=== PATIENT | female | born 1955 | race Caucasian/White ===

== ENCOUNTER 2024-07-21 13:24 | Inpatient (IN) | payer MEDICARE, SELFPAY ==
[2024-07-21] VITALS (26 sets, daily range): BP systolic 79–135; BP diastolic 55–114; PULSE 77–164; RESP 16–29; TEMP 37.6–37.7; O2SAT 91–99; BMI 38.9; BMI 35.3
--- NOTE | 2024-07-21 13:36 | EKG12_ITS ---
Test Reason : HIGH HR Blood Pressure : / mmHG Vent. Rate : 156 BPM Atrial Rate : 388 BPM P-R Int : 000 ms QRS Dur : 084 ms QT Int : 294 ms P-R-T Axes : 000 267 074 degrees QTc Int : 473 ms Critical Test Result: High HR Atrial flutter with variable A-V block Abnormal ECG Confirmed by Stone Serrano ([id number]), newspaper copy editor AYAKA MORENO ([id number]) on 07/23/2024 8:19:29 AM Referred By: CECILLE/MELQUIADES Confirmed By:Stone Serrano
[2024-07-21 13:49] LABS: Bedside Glucose 221 mg/dL (74-106)
--- NOTE | 2024-07-21 13:53 | ED.RN ---
pt's , amor, notified of patient being in ED per request of patient
[2024-07-21 13:54] LABS: Absolute Neutrophil Count 12.7 X10^3/uL (2.0-7.7); Basophil# 0.07 X10^3/uL; Basophil% 0.4 % (0-1); Eosinophils% 0.6 % (0-5); Hematocrit 26.2 % (37-47); Hemoglobin 8.2 g/dL (12.0-15.0); Lymphocyte % 5.7 % (19-41); Mean Corp Hgb Conc 31.3 g/dL (32-36); Mean Corpuscular Volume 92.6 fL (81-99); Mean Platelet Vol. 9.3 fl (6.2-12.0); Monocyte% 11.3 % (0-10); NRBC Flagged by Analyzer 0 % (0-5); Neutrophil # 12.66 X10^3/uL (2.7-7.7); Neutrophil % 79.9 % (47-70); POSITIVE DIFFERENTIAL YES; Platelet Count 273 K/mm3 (150-450); RBC Distribution Width CV 14.6 % (11.6-14.6); RBC Distribution Width SD 49.5 fl (35.1-43.9); Red Blood Count 2.83 M/mm3 (4.2-5.4); White Blood Count 15.9 K/mm3 (4.4-11.0)
--- NOTE | 2024-07-21 13:55 | RAD_ITS ---
STUDY: X-RAY CHEST REASON FOR EXAM: Female, 68 years old. Chest pain TECHNIQUE: Single AP portable view of the chest. COMPARISON: None. FINDINGS: A right-sided double-lumen catheter is seen with the tip at the junction of the superior vena cava and right atrium. EKG electrodes are seen. Mild degree of vascular congestion and bibasilar atelectasis. There is no demonstrated pleural abnormality. Normal size heart. Normal mediastinum and snow. Normal visualized pulmonary arteries. Normal visualized aortic arch and descending thoracic aorta. Normal visualized thoracic spine. Normal visualized ribs, clavicles, and shoulders. There is no demonstrated abnormality of the visualized soft tissue structures of the upper abdomen. RAD/Chest 1 View (Portable) IMPRESSION: Mild degree of vascular congestion and bibasilar atelectasis. Electronically Signed: Chaitanya Landis MD at 14:29 EDT ,
[2024-07-21 13:59] LABS: Differential Indicated SCAN CRITERIA MET
[2024-07-21 14:19] LABS: Anion Gap 9 (5-15); BUN 31 mg/dL (7-18); BUN/Creat Ratio 13.3 RATIO (10-20); Chloride 91 mmol/L (98-107); Creatinine, Serum 2.33 mg/dL (0.55-1.02); EST Glomerular Filtration Rate 22 mL/min (>60); Est Glom Filt Rate - Afr Amer 27 mL/min (>60); Estimated Creatinine Clearance 27.72 ml/min; Glucose 243 mg/dL (74-106); Potassium 4.6 mmol/L (3.5-5.1); Sodium Level 127 mmol/L (136-145); Troponin-I HS (w/2H Reflex) 4 pg/mL (3.0-54.0)
[2024-07-21] MEDS: Metoprolol Tartrate 5 MG/5 ML Vial IV ×3 (14:20→15:17)
--- NOTE | 2024-07-21 14:25 | CT_ITS ---
We are attempting to reach an attending provider to discuss findings. An addendum with communication details will be sent when the communication is complete. STUDY: CT HEAD STROKE PROTOCOL W/O CONTRAST INJECTION REASON FOR EXAM: Female, 68 years old. Neuro deficit, acute, stroke suspected RADIATION DOSAGE (If Supplied By Facility): CTDIvol = ( 47.06 ) mGy, DLP = ( 837.39 ) mGycm TECHNIQUE: Transaxial CT imaging of the brain was performed without administration of intravenous contrast material. Individualized dose optimization techniques were used for this CT. COMPARISON: No relevant priors. FINDINGS: Normal soft tissue structures. Normal calvarium. There is mild cerebral atrophy with widening of the extra-axial spaces and ventricular dilatation. There are areas of decreased attenuation within the white matter tracts of the supratentorial brain, consistent with microvascular disease changes. Normal basal ganglia and thalami. Normal brainstem. Normal cerebellum. There is no intracranial hemorrhage. There are no findings of an acute ischemic infarction. Atherosclerotic calcification of the left vertebral artery. Normal visualized paranasal sinuses. ASPECT score: 10 CT/STROKE Brain/Head without Cont IMPRESSION: Chronic involutional changes of the brain. Electronically Signed: Chaitanya Landis MD at 14:51 EDT ,
--- NOTE | 2024-07-21 14:27 | ED.VIS.STROK ---
HPI History of Present Illness Chief Complaint: Alt LOC Informant: family Narrative Narrative: Patient was brought in by EMS, due to busy department, patient was seen by myself and started shift 2 PM. Brother was present at bedside. Discussion with him, he did visit his sister at [facility] prior to her going dialysis. She is normal 11 AM. He reports she was scared and asked him to go to dialysis with her. She was transported to dialysis. On his arrival they reported that her heart rate was fast and she has been sent to the emergency department. However on arrival reported there is altered mental status. She was noted to be A-fib with RVR. Discussed with brother he states she was discharged from [facility] approximately 3 weeks ago she was hospitalized for 3 weeks. He states there is some sort of rhythm issues in addition she had a right DVT started on anticoagulant. She had a subsequent for what he explains blood pooling in her leg requiring drain after blood thinners were started. He is unclear if she is still currently on blood thinners since being discharged. She was started on dialysis from that hospitalization on Sunday and Fridays. Patient states she still makes a little urine. She has no cough. During discussion she was alert to person and place he is stating the year is 1928, brother states she typically does know the year. He does state that she is a diabetic. Although heart rate 150s 160s she denies any symptoms.Brother reports since being at the facility there physical therapy has walked her 12 feet with a walker. Currently there is no additional information in the system or anything sent from facility as she came from dialysis. [facility] Medical History Acute kidney injury superimposed on chronic kidney disease Home Medications ?Medication ?Instructions ?Recorded ?Last Taken ?Type acetaminophen 325 mg tablet 325 mg PO Q4H PRN fever or pain 07/21/24 Unknown History apixaban 5 mg tablet 5 mg PO BID 07/21/24 Unknown History chlorpromazine 50 mg tablet 50 mg PO BID 07/21/24 Unknown History furosemide 40 mg tablet 40 mg PO .COMPLEX EDEMA 07/21/24 Unknown History hydrocortisone 1 % topical cream 1 applic topical DAILY HEMORROIDS 07/21/24 Unknown History (Ala-Marlo) insulin glargine 100 unit/mL (3 22 unit subcut QPM 07/21/24 Unknown History mL) subcutaneous pen (Lantus Solostar U-100 Insulin) insulin lispro 100 unit/mL See Protocol subcut DAILY 07/21/24 Unknown History subcutaneous pen (Humalog KwikPen (U-100) Insulin) metoprolol tartrate 100 mg tablet 100 mg PO .COMPLEX 07/21/24 Unknown History metoprolol tartrate 100 mg tablet 100 mg PO QHS HTN 07/21/24 Unknown History (Lopressor) oxycodone 5 mg tablet 5 mg PO Q6H PRN pain 07/21/24 Unknown History potassium chloride 10 mEq 10 meq PO .COMPLEX HYPOKALEMIA 07/21/24 Unknown History tablet,extended release(part/cryst) (Klor-Con M) vitamin B comp no.3-folic acid 1 1 tab PO DAILY 07/21/24 Unknown History mg-vit C 60 mg-biotin 300 mcg tablet (Cl[facility] Rx) Allergy/AdvReac Type Severity Reaction Status Date / Time propoxyphene (From Darvon) Allergy Mild PT UNABLE Verified 07/21/24 13:32 TO RESPOND-NEEDS F/U haloperidol (From Haldol) Allergy PT UNABLE Verified 07/21/24 13:32 TO RESPOND-NEEDS F/U Penicillins Allergy PT UNABLE Verified 07/21/24 13:32 TO RESPOND-NEEDS F/U Social History Smoking Status: Never smoker ROS ROS ED Constitutional Constitutional ED: Denies chills, fever(s) or sweats Eyes Eyes: Denies change in vision ENT ENT ED: Denies dysphagia or sore throat Cardiovascular Cardiovascular: Denies chest pain, leg edema, palpitations, racing heartbeat or other Respiratory/Chest Respiratory/Chest: Denies cough, dyspnea or dyspnea on exertion Gastrointestinal Gastrointestinal: Denies abdominal pain, diarrhea, nausea or vomiting Genitourinary Genitourinary ED: Denies dysuria, hematuria or urinary frequency Musculoskeletal Musculoskeletal: Denies back pain, extremity pain or neck pain Integumentary Denies rash or wounds Neurologic Neurologic: Denies headache(s), paresthesias or weakness EXAM Physical Exam Const Vital Signs: 07/21/24 13:25 07/21/24 13:28 07/21/24 14:02 Temperature 99.7 F H 99.7 F H Temperature Source Temporal Temporal Pulse Rate 155 H 157 H Respiratory Rate 28 H 27 H Blood Pressure 123/82 H 125/92 H Blood Pressure Mean 95 103 Blood Pressure Source Blood Pressure Position Blood Pressure Location Pulse Ox 97 91 Oxygen Delivery Method Room Air Room Air Room Air 07/21/24 14:22 07/21/24 14:25 07/21/24 14:28 Temperature Temperature Source Pulse Rate 164 H 164 H Respiratory Rate 29 H 16 Blood Pressure 109/82 H 109/82 H Blood Pressure Mean 91 91 Blood Pressure Source Blood Pressure Position Blood Pressure Location Pulse Ox 98 95 Oxygen Delivery Method Room Air Room Air Room Air 07/21/24 14:28 07/21/24 14:55 07/21/24 15:17 Temperature 99.9 F H Temperature Source Oral Pulse Rate 132 H 141 H 142 H Respiratory Rate 25 H 27 H 25 H Blood Pressure 109/82 H 111/69 107/76 Blood Pressure Mean 91 83 86 Blood Pressure Source Blood Pressure Position Blood Pressure Location Pulse Ox 95 95 96 Oxygen Delivery Method Room Air Room Air Room Air 07/21/24 15:25 07/21/24 15:31 07/21/24 15:55 Temperature Temperature Source Pulse Rate 133 H 134 H 130 H Respiratory Rate 16 25 H 24 H Blood Pressure 117/68 117/65 100/67 Blood Pressure Mean 84 82 78 Blood Pressure Source Blood Pressure Position Blood Pressure Location Pulse Ox 98 95 94 Oxygen Delivery Method Room Air Room Air Room Air 07/21/24 16:00 07/21/24 16:30 07/21/24 16:58 Temperature Temperature Source Pulse Rate 127 H 125 H 135 H Respiratory Rate 26 H 21 H 25 H Blood Pressure 100/66 117/74 118/80 Blood Pressure Mean 77 88 92 Blood Pressure Source Monitor Blood Pressure Position Semi-Fowlers Blood Pressure Location Right Arm Pulse Ox 97 98 97 Oxygen Delivery Method Room Air Room Air Room Air 07/21/24 17:00 07/21/24 17:30 07/21/24 17:30 Temperature Temperature Source Pulse Rate 126 H 118 H 118 H Respiratory Rate 27 H 24 H 25 H Blood Pressure 109/72 114/71 114/71 Blood Pressure Mean 84 85 85 Blood Pressure Source Monitor Blood Pressure Position Semi-Fowlers Blood Pressure Location Right Arm Pulse Ox 98 98 97 Oxygen Delivery Method Room Air Room Air Room Air 07/21/24 18:00 Temperature Temperature Source Pulse Rate 114 H Respiratory Rate 21 H Blood Pressure 105/70 Blood Pressure Mean 81 Blood Pressure Source Blood Pressure Position Blood Pressure Location Pulse Ox 97 Oxygen Delivery Method Room Air Positive well nourished and well developed General Appearance ED: well developed and NAD HEENT Reports moist mucous membranes normocephalic and atraumatic Eyes EOMs intact bilaterally and conjunctivae normal General Eye ED: Yes normal appearance of both eyes and pale conjunctiva Neck no lymphadenopathy and supple General: Negative for tenderness Chest Wall Chest: Negative for tenderness Resp normal respiratory effort and normal air movement Effort and Inspection: symmetric chest movement; Negative for respiratory distress Cardio regular rate, regular rhythm and no murmurs Peripheral Pulses: pulses 2+ throughout GI normal to inspection, nondistended, normoactive bowel sounds and non-tender Palpation: Negative for guarding or rebound tenderness present Back/Spine no CVA tenderness and no thoracic nor lumbar tenderness Extremity Extremity Narrative: Right posterior thigh: There was healing 1 cm orifice likely from previous drain 2. No surrounding erythema, no ecchymosis. General Extremety ED: Negative for edema or tenderness General Extremity: Negative for edema Neuro no sensory deficits noted Neuro Narrative: Alert to person and place reported years 1925. Sensorium / Orientation: awake and alert Skin Skin Narrative: Skin pallor noted. NIHSS NIHSS Initial: 1a Level of Consciousness: 0 1b LOC Questions (Score 2 if aphasic/stupor): 1 1c LOC Commands (Only score 1st attempt): 0 2 Best Gaze (If aphasic, use reflexive mvmts.): 0 3 Visual: 0 4 Facial Palsy: 0 5 Motor Arm Right (UN = amputation/fusion): 0 5 Motor Arm Left: 0 6 Motor Leg Right: 1 6 Motor Leg Left: 1 7 Limb ataxia (Only + if out of proportion): 0 8 Sensory (Aphasia/stupor=0 or 1, coma=2): 0 9 Best Language: 0 10 Dysarthria (mute, coma=2, intubated=UN): 0 11 Extinction and Inattention (only scored if +): 0 Total Score: 3 MDM MDM MDM Narrative Medical decision making narrative: Interventions / MDM: Differential diagnosis: CVA, UTI, encephalopathy, A-fib with RVR, electrolyte abnormality Diagnosis considered but do not suspect: Pneumonia however x-ray negative. My EKG interpretation: A-fib RVR 156, no ST or T wave changes. Imaging independently reviewed and interpreted by myself: 1 view chest x-ray: No infiltrate no pleural effusion noted. CT brain: No acute process. CT angiogram brain and neck: No acute process per radiology. External documents reviewed: N/A Test considered but not ordered:N/A ED course: There is initial nursing protocol placed for the patient due to busy department. After my evaluation she had slight confusion she has an NIH of 3. She is in A-fib with RVR, initiation of Lopressor. Brother unclear if she is still on a blood thinner since she had the hematoma in her thigh. Dialysis patient also which complicates things. Decision for stroke workup was initiated after my evaluation to get assistance from stroke neurologist for plan of care. Nursing is calling over to [facility] facility for records. 1430: Hemoglobin returning at 8.2 white count 15.9. Sodium 127. Creatinine 2.33 BUN 31 GFR of 22. Glucose 243. Troponin negative. 1435: Facility faxed over patient's record she is on Eliquis 5 mg twice daily for DVT. Additional records reviewed she had paroxysmal A-fib. Type 2 diabetes heart failure, hypertension, schizophrenia history, post hemorrhage anemia. 1447: I spoke with stroke neurologist, Dr. Bowman over the phone discussed her history, reason for activation of stroke team, however discuss confirm she is on Eliquis. Agree she is not a TNK candidate. However did recommend CT angiogram to rule out large vessel occlusion. This was ordered as she is currently on dialysis. Shortly after radiologist did call discussion CT brain noncontrast no acute process. 1525: Nursing reports to me patient is meeting sepsis criteria heart rate white count. Chronic elevation in creatinine with her dialysis. Her temp was 99. Will add lactic acid and blood culture x 1 at this time due to shortages and blood culture bottles nationwide. Patient status post third dose of Lopressor heart rate fluctuating 120s to 130s, systolic blood pressure 107. Will plan on Cardizem IV [address] angiogram head and neck results returned negative. 1640: Urine positive for infection urine culture sent. Lactic acid 2.0. Rocephin IV ordered. Heart rate recheck still 120s to 130s blood pressure stable in the 115 range, will start a Cardizem drip. Patient and brothers updated on findings. Will discuss with hospitalist for admission. Discussed with Dr. Suarez for admission. Re-evaluation: stable Disposition discussed with patient/family/significant other: Patient and brother Case discussed with consulting clinician: Stroke neurologist Dr. Bowman This note was generated with [employer] dictation software. It may contain incorrect words, spelling, and punctuation that were not noted in checking the note before signing. Lab Data Attestation: I reviewed the patient's lab results. Labs: Laboratory Results - last 24 hr 07/21/24 07/21/24 07/21/24 13:30 13:40 15:36 WBC 15.9 H RBC 2.83 L Hgb 8.2 L Hct 26.2 L MCV 92.6 MCH 29.0 MCHC 31.3 L RDW Std Deviation 49.5 H RDW Coeff of [place]olly 14.6 Plt Count 273 MPV 9.3 Immature Gran % (Auto) 2.100 H Neut % (Auto) 79.9 H Lymph % (Auto) 5.7 L [place] % (Auto) 11.3 H Eos % (Auto) 0.6 Baso % (Auto) 0.4 Absolute Neuts (auto) 12.7 H Absolute Lymphs (auto) 0.90 Nucleated RBC % 0 Differential Comment SCANNED Diff Path Review May foll PT 24.3 H INR 2.2 APTT 46.4 H Sodium 127 L Potassium 4.6 Chloride 91 L Carbon Dioxide 27.0 Anion Gap 9 BUN 31 H Creatinine 2.33 H Estim Creat Clear Calc 27.72 Est GFR (MDRD) Af Amer 27 L Est GFR (MDRD) Non-Af 22 L BUN/Creatinine Ratio 13.3 Glucose 243 H Lactic Acid 2.0 Calcium 9.0 Magnesium 1.9 Troponin I High Sens 4 Urine Color Urine Clarity Urine pH Ur Specific [place] Urine Protein Urine Glucose (UA) Urine Ketones Urine Occult Blood Urine Nitrite Urine Bilirubin Urine Urobilinogen Ur Leukocyte Esterase Urine RBC Urine WBC Ur Squamous Epith Cells Ur Transition Epith Cell Urine Bacteria Urine Mucus Urine Yeast POC Glucose 221 H 07/21/24 07/21/24 15:43 15:55 WBC RBC Hgb Hct MCV MCH MCHC RDW Std Deviation RDW Coeff of [place]olly Plt Count MPV Immature Gran % (Auto) Neut % (Auto) Lymph % (Auto) [place] % (Auto) Eos % (Auto) Baso % (Auto) Absolute Neuts (auto) Absolute Lymphs (auto) Nucleated RBC % Differential Comment Diff Path Review PT INR APTT Sodium Potassium Chloride Carbon Dioxide Anion Gap BUN Creatinine Estim Creat Clear Calc Est GFR (MDRD) Af Amer Est GFR (MDRD) Non-Af BUN/Creatinine Ratio Glucose Lactic Acid Calcium Magnesium Troponin I High Sens 4 Urine Color YELLOW Urine Clarity Cloudy Urine pH 6.5 Ur Specific [place] 1.010 Urine Protein 30 H Urine Glucose (UA) Normal Urine Ketones Negative Urine Occult Blood 150 H Urine Nitrite Negative Urine Bilirubin Negative Urine Urobilinogen Normal Ur Leukocyte Esterase 500 H Urine RBC 0 SEEN Urine WBC >100 SEEN Ur Squamous Epith Cells 0 SEEN Ur Transition Epith Cell Urine Bacteria 3+ Urine Mucus 0 SEEN Urine Yeast 2+ POC Glucose Radiography Diagnostic Testing: Clinical Impression(s) from Imaging Studies Chest X-Ray 07/21/24 13:55 IMPRESSION: Mild degree of vascular congestion and bibasilar atelectasis. Electronically Signed: Chaitanya Landis MD at 14:29 EDT , Brain CT 07/21/24 14:25 IMPRESSION: Chronic involutional changes of the brain. Electronically Signed: Chaitanya Landis MD at 14:51 EDT , ADDENDUM: 07/21/24 1458 IMPRESSION: Chronic involutional changes of the brain. N.B. : The above Results were Read Back by Chaitanya Landis MD to Dr Susanne DO, and understanding confirmed on 07/21/2024 14:52:01 (ET). Electronically Signed: Chaitanya Landis MD at 14:51 EDT , Head/Neck CTA 07/21/24 14:50 IMPRESSION: Normal CTA Head and neck with contrast. N.B. : The above Results were Read Back by Chaitanya Landis MD to Dr Susanne DO, and understanding confirmed on 07/21/2024 15:21:17 (ET). Electronically Signed: Chaitanya Landis MD at 15:22 EDT , ADDENDUM: 07/21/24 1529 IMPRESSION: Normal CTA Head and neck with contrast. N.B. : The above Results were Read Back by Chaitanya Landis MD to Dr Susanne DO, and understanding confirmed on 07/21/2024 15:21:17 (ET). Electronically Signed: Chaitanya Landis MD at 15:22 EDT , Stroke Documentation Questions Stroke Team Activated: Yes Reviewed Inclusion/Exclusion criteria: Yes Was Patient considered for Endovascular Intervention?: No-CTA negative, determined not to be an endovascular candidate IV Thrombolytic Administered: No No contraindications from thrombolytic administration: Yes (Eliquis therapy) Critical Care Time Critical Care Time: Yes Critical care time (excluding procedures): 30-74 minutes, Discussing w/Patient &/or Family/Distributor Sales Consultant, Discussing w/Consultants, Arranging Admission or Transfer, Performing Direct Patient Care at Bedside and - (40 minutes) Discharge Plan Dx/Rx/DC Orders Clinical Impression: Atrial fibrillation with rapid ventricular response, Acute UTI, Encephalopathy, ESRD on hemodialysis, Hyperglycemia due to diabetes mellitus, Acute hyponatremia Disposition Disposition: Acute Care Hospital [facility] Discharge Date/Time: 07/21/24 19:06
[2024-07-21 14:33] LABS: Differential Comment SCANNED
[2024-07-21 14:45] LABS: International Normalized Ratio 2.2; Prothrombin Time (Protime)PT. 24.3 SECONDS (11.7-14.9)
[2024-07-21 14:46] LABS: Partial Thromboplast Time 46.4 Seconds (24.1-36.2)
--- NOTE | 2024-07-21 14:50 | CT_ITS ---
STUDY: CTA HEAD AND NECK WITH CONTRAST REASON FOR EXAM: Female, 68 years old. Altered mental status RADIATION DOSAGE (If Supplied By Facility): CTDIvol = ( 17.84 ) mGy, DLP = ( 882.88 ) mGycm TECHNIQUE: CT angiography was performed with a multi-detector CT scanner. Data acquisition was obtained from the skull base through the vertex following intravenous administration of IV 100mL [id number]-[id number]. MIP images were reconstructed from the axial data set. Post-processing of the angiographic images was performed, with multiplanar reformation and 3D reconstruction. Individualized dose optimization techniques were used for this CT. COMPARISON: No relevant priors. FINDINGS: Normal bilateral petrous carotid arteries. There is calcified plaque formation of the right cavernous carotid artery, without a cross-sectional luminal stenosis. There is calcified plaque formation of the left cavernous carotid artery, without a cross-sectional luminal stenosis. Normal right A1 segments of the anterior cerebral artery. Normal left A1 segments of the anterior cerebral artery. Normal intact anterior communicating artery (ACOM). Normal bilateral A2 segments of the anterior cerebral arteries. Normal right M1 and M2 segments of the middle cerebral arteries, with a normal M1 bifurcation. Normal left M1 and M2 segments of the middle cerebral arteries, with a normal M1 bifurcation. Normal right posterior communicating artery (PCOM). Normal left posterior communicating artery (PCOM). Normal bilateral vertebral arteries. Normal basilar artery with a normal basilar bifurcation. The visualized bilateral superior cerebellar (SCA) arteries are normal. Normal bilateral P1, P2 and visualized P3 segments of the posterior cerebral arteries. There is no demonstrated aneurysm of the [place] of [place]. AORTIC ARCH: Normal visualized aortic arch. Normal origins of the brachiocephalic, left common carotid, and left subclavian arteries. RIGHT CAROTID ARTERIES: Normal right common carotid artery (CCA). Normal right common carotid bulb. Normal origin of the right internal carotid (ICA) artery without a hemodynamically significant stenosis. Normal visualized cervical portion of the right internal carotid artery. Normal origin of the right external carotid artery (ECA). LEFT CAROTID ARTERIES: Normal left common carotid artery (CCA). Normal left common carotid bulb. Normal origin of the left internal carotid (ICA) artery without a hemodynamically significant stenosis. Normal visualized cervical portion of the left internal carotid artery. Normal origin of the left external carotid artery (ECA). VERTEBRAL ARTERIES: There is enhancement within the bilateral vertebral arteries with a small right vertebral artery, and a dominant left vertebral artery. CT/STROKE CTA Head AND Neck W/Con IMPRESSION: Normal CTA Head and neck with contrast. N.B. : The above Results were Read Back by Chaitanya Landis MD to Dr Susanne DO, and understanding confirmed on 07/21/2024 15:21:17 (ET). Electronically Signed: Chaitanya Landis MD at 15:22 EDT ,
[2024-07-21] MEDS: dilTIAZem 25 MG/5 ML Vial 10 MG IV BOLUS (15:32)
[2024-07-21 15:49] LABS: Reflex Troponin-HS? (from REC) Y
[2024-07-21 15:55] LABS: Mucous, Urine 0 SEEN /hpf (<or=2+); Red Blood Cells-Urine 0 SEEN /hpf (0-5); Squamous Epithelial Cells - UA 0 SEEN /hpf (5-10)
[2024-07-21 16:08] LABS: Glucose, Dipstick Normal (Normal); Ketone-Dipstick Negative (Negative); Leukocyte Esterase-Dipstick 500 /ul (Negative); Nitrite-Dipstick Negative (Negative); Occult Blood-Urine 150 /ul (Negative); Protein-Dipstick 30 mg/dl (Negative); Urine Bilirubin Dipstick Negative (Negative); Urine Urobilinogen Normal (Normal); Urine pH 6.5 (5.0 - 8.0)
[2024-07-21 16:20] LABS: Color, Urine YELLOW (Yellow); Urine Clarity Cloudy (Clear)
[2024-07-21 16:21] LABS: Bacteria 3+ /hpf (None Seen); White Blood Cells >100 SEEN /hpf (0-5); Yeast-Urine 2+ /hpf (None Seen)
[2024-07-21 16:44] LABS: Troponin-I HS 4 pg/mL (3.0-54.0)
[2024-07-21] MEDS: Ceftriaxone 1 GM/50 ML BAG IV (16:47)
[2024-07-21] MEDS: Diltiazem 125 MG in Dextrose 5%-Water (100mL Bag) 100 ML IV (16:58)
--- NOTE | 2024-07-21 17:05 | ED.RN ---
Patient's called to get an update. He was advised that she will be getting admitted.
--- NOTE | 2024-07-21 18:25 | PCM.HP.STD ---
HPI - General General Date of Admission: 07/21/24 Date of Service: 07/21/24 Chief Complaint: Altered mental status HPI Narrative GLADIS VELOZ, is a 68 F with history of end-stage renal disease on hemodialysis Sunday/Sunday/Sunday, schizophrenia, A-fib, diabetes, DVT and history of leg hematoma but now reportedly back on Eliquis who presented to [facility] ED 07/21/2024 due to fast heart beat. Patient was at [facility] for 3 weeks with a lower extremity DVT and subsequent a leg hematoma with drain and per report has since been restarted on Eliquis and now has been on SNF for 3 weeks undergoing rehab and dialysis and was in her usual health until late morning/early afternoon when she went to dialysis and on arrival it was noted a heart rate was fast and she was sent to the ED. In the ED she also had some alteration in mental status and was noted to be in A-fib with RVR. Initially she had stroke workup with her confusion and CTA negative for acute process but patient was found to have UA concerning for UTI and started on antibiotics. Additionally her A-fib was refractory and required starting Cardizem drip. For these reasons hospitalist contacted for admission. Patient evaluated at bedside and no family present, patient reluctant to answer questions and just said that she did not want to be sent anywhere for admission but would not answer any other direct questions other than to say she knew she was at the hospital. History per report as above. [facility] Medical History Acute kidney injury superimposed on chronic kidney disease Home Medications ?Medication ?Instructions ?Recorded ?Last Taken ?Type acetaminophen 325 mg tablet 325 mg PO Q4H PRN fever or pain 07/21/24 Unknown History apixaban 5 mg tablet 5 mg PO BID 07/21/24 Unknown History chlorpromazine 50 mg tablet 50 mg PO BID 07/21/24 Unknown History furosemide 40 mg tablet 40 mg PO .COMPLEX EDEMA 07/21/24 Unknown History hydrocortisone 1 % topical cream 1 applic topical DAILY HEMORROIDS 07/21/24 Unknown History (Ala-Marlo) insulin glargine 100 unit/mL (3 22 unit subcut QPM 07/21/24 Unknown History mL) subcutaneous pen (Lantus Solostar U-100 Insulin) insulin lispro 100 unit/mL See Protocol subcut DAILY 07/21/24 Unknown History subcutaneous pen (Humalog KwikPen (U-100) Insulin) metoprolol tartrate 100 mg tablet 100 mg PO .COMPLEX 07/21/24 Unknown History metoprolol tartrate 100 mg tablet 100 mg PO QHS HTN 07/21/24 Unknown History (Lopressor) oxycodone 5 mg tablet 5 mg PO Q6H PRN pain 07/21/24 Unknown History potassium chloride 10 mEq 10 meq PO .COMPLEX HYPOKALEMIA 07/21/24 Unknown History tablet,extended release(part/cryst) (Klor-Con M) vitamin B comp no.3-folic acid 1 1 tab PO DAILY 07/21/24 Unknown History mg-vit C 60 mg-biotin 300 mcg tablet (Clover-Boaz Rx) Allergy/AdvReac Type Severity Reaction Status Date / Time propoxyphene (From Darvon) Allergy Mild PT UNABLE Verified 07/21/24 13:32 TO RESPOND-NEEDS F/U haloperidol (From Haldol) Allergy PT UNABLE Verified 07/21/24 13:32 TO RESPOND-NEEDS F/U Penicillins Allergy PT UNABLE Verified 07/21/24 13:32 TO RESPOND-NEEDS F/U Social History Smoking Status: Never smoker ROS ROS Narrative Unable to obtain ROS due to mental status and patient reluctant to answer questions Vital Signs Vital Signs Vital Signs: 07/21/24 13:25 07/21/24 13:28 07/21/24 14:02 Temperature 99.7 F H 99.7 F H Temperature Source Temporal Temporal Pulse Rate 155 H 157 H Respiratory Rate 28 H 27 H Blood Pressure 123/82 H 125/92 H Blood Pressure Mean 95 103 Blood Pressure Source Blood Pressure Position Blood Pressure Location Pulse Ox 97 91 Oxygen Delivery Method Room Air Room Air Room Air 07/21/24 14:22 07/21/24 14:25 07/21/24 14:28 Temperature Temperature Source Pulse Rate 164 H 164 H Respiratory Rate 29 H 16 Blood Pressure 109/82 H 109/82 H Blood Pressure Mean 91 91 Blood Pressure Source Blood Pressure Position Blood Pressure Location Pulse Ox 98 95 Oxygen Delivery Method Room Air Room Air Room Air 07/21/24 14:28 07/21/24 14:55 07/21/24 15:17 Temperature 99.9 F H Temperature Source Oral Pulse Rate 132 H 141 H 142 H Respiratory Rate 25 H 27 H 25 H Blood Pressure 109/82 H 111/69 107/76 Blood Pressure Mean 91 83 86 Blood Pressure Source Blood Pressure Position Blood Pressure Location Pulse Ox 95 95 96 Oxygen Delivery Method Room Air Room Air Room Air 07/21/24 15:25 07/21/24 15:31 07/21/24 15:55 Temperature Temperature Source Pulse Rate 133 H 134 H 130 H Respiratory Rate 16 25 H 24 H Blood Pressure 117/68 117/65 100/67 Blood Pressure Mean 84 82 78 Blood Pressure Source Blood Pressure Position Blood Pressure Location Pulse Ox 98 95 94 Oxygen Delivery Method Room Air Room Air Room Air 07/21/24 16:00 07/21/24 16:30 07/21/24 16:58 Temperature Temperature Source Pulse Rate 127 H 125 H 135 H Respiratory Rate 26 H 21 H 25 H Blood Pressure 100/66 117/74 118/80 Blood Pressure Mean 77 88 92 Blood Pressure Source Monitor Blood Pressure Position Semi-Fowlers Blood Pressure Location Right Arm Pulse Ox 97 98 97 Oxygen Delivery Method Room Air Room Air Room Air 07/21/24 17:00 07/21/24 17:30 07/21/24 17:30 Temperature Temperature Source Pulse Rate 126 H 118 H 118 H Respiratory Rate 27 H 24 H 25 H Blood Pressure 109/72 114/71 114/71 Blood Pressure Mean 84 85 85 Blood Pressure Source Monitor Blood Pressure Position Semi-Fowlers Blood Pressure Location Right Arm Pulse Ox 98 98 97 Oxygen Delivery Method Room Air Room Air Room Air 07/21/24 18:00 Temperature Temperature Source Pulse Rate 114 H Respiratory Rate 21 H Blood Pressure 105/70 Blood Pressure Mean 81 Blood Pressure Source Blood Pressure Position Blood Pressure Location Pulse Ox 97 Oxygen Delivery Method Room Air Weight Weight: 102.8 kg Body Mass Index (BMI) 38.9 Physical Exam Narrative General: Awake and alert however after saying she was going to be admitted patient closed her eyes and was reluctant to answer further questions HEENT: Atraumatic, normocephalic Eyes: Anicteric, normal conjunctiva, extraocular movements grossly intact Neck: Supple Respiratory: Clear to auscultation bilaterally, normal respiratory effort Cardiovascular: Tachycardic, irregularly irregular GI: Soft, nontender, nondistended Extremities: No significant pitting edema edema Musculoskeletal: Moving all extremities Neuro: No overt focal neurological deficits Skin: No rashes appreciated Psych: Patient uninterested in answering questions Results Lab / Micro Data 07/21/24 13:40 07/21/24 13:40 Labs: Laboratory Results - last 24 hr 07/21/24 13:30: POC Glucose 221 H 07/21/24 13:40: WBC 15.9 H, RBC 2.83 L, Hgb 8.2 L, Hct 26.2 L, MCV 92.6, MCH 29.0, MCHC 31.3 L, RDW Std Deviation 49.5 H, RDW Coeff of Rolly 14.6, Plt Count 273, MPV 9.3, Immature Gran % (Auto) 2.100 H, Neut % (Auto) 79.9 H, Lymph % (Auto) 5.7 L, [place] % (Auto) 11.3 H, Eos % (Auto) 0.6, Baso % (Auto) 0.4, Absolute Neuts (auto) 12.7 H, Absolute Lymphs (auto) 0.90, Nucleated RBC % 0, Differential Comment SCANNED, Diff Path Review March, PT 24.3 H, INR 2.2, APTT 46.4 H, Sodium 127 L, Potassium 4.6, Chloride 91 L, Carbon Dioxide 27.0, Anion Gap 9, BUN 31 H, Creatinine 2.33 H, Estim Creat Clear Calc 27.72, Est GFR (MDRD) Af Amer 27 L, Est GFR (MDRD) Non-Af 22 L, BUN/Creatinine Ratio 13.3, Glucose 243 H, Calcium 9.0, Troponin I High Sens 4 07/21/24 15:36: Lactic Acid 2.0 07/21/24 15:43: Urine Color YELLOW, Urine Clarity Cloudy, Urine pH 6.5, Ur Specific Faxon 1.010, Urine Protein 30 H, Urine Glucose (UA) Normal, Urine Ketones Negative, Urine Occult Blood 150 H, Urine Nitrite Negative, Urine Bilirubin Negative, Urine Urobilinogen Normal, Ur Leukocyte Esterase 500 H, Urine RBC 0 SEEN, Urine WBC >100 SEEN, Ur Squamous Epith Cells 0 SEEN, Ur Transition Epith Cell , Urine Bacteria 3+, Urine Mucus 0 SEEN, Urine Yeast 2+ 07/21/24 15:55: Troponin I High Sens 4 Imaging Radiology Impression Chest X-Ray 07/21/24 13:55 IMPRESSION: Mild degree of vascular congestion and bibasilar atelectasis. Electronically Signed: Chaitanya Landis MD at 14:29 EDT , Brain CT 07/21/24 14:25 IMPRESSION: Chronic involutional changes of the brain. Electronically Signed: Chaitanya Landis MD at 14:51 EDT , ADDENDUM: 07/21/24 1458 IMPRESSION: Chronic involutional changes of the brain. N.B. : The above Results were Read Back by Chaitanya Landis MD to Dr Susanne DO, and understanding confirmed on 07/21/2024 14:52:01 (ET). Electronically Signed: Chaitanya Landis MD at 14:51 EDT , Head/Neck CTA 07/21/24 14:50 IMPRESSION: Normal CTA Head and neck with contrast. N.B. : The above Results were Read Back by Chaitanya Landis MD to Dr Susanne DO, and understanding confirmed on 07/21/2024 15:21:17 (ET). Electronically Signed: Chaitanya Landis MD at 15:22 EDT , ADDENDUM: 07/21/24 1529 IMPRESSION: Normal CTA Head and neck with contrast. N.B. : The above Results were Read Back by Chaitanya Landis MD to Dr Susanne DO, and understanding confirmed on 07/21/2024 15:21:17 (ET). Electronically Signed: Chaitanya aLndis MD at 15:22 EDT , Assessment & Plan Assessment/Plan (1) Atrial fibrillation with rapid ventricular response: (2) ESRD on hemodialysis: PLAN: Plan # A-fib with RVR -Patient on Cardizem drip -P.o. metoprolol, pending progress may need additional or alternative regimen -Continue Eliquis -Will obtain echo -Will obtain TSH and magnesium -Troponin within normal limits # Hyponatremia -Sodium 127, 2 weeks ago was 133, given hyperglycemia corrected sodium is 129 -Obtain further lab workup and urine studies to better characterize -TSH ordered as well # Altered mental status -Patient with UA suggestive of UTI and also has elevated white blood cell count -Was given antibiotics in ED and urine culture sent -Given patient was recently admitted to hospital we will treat with cefepime while awaiting sensitivities of cultures -Patient does have a sodium of 127 however it was low several weeks ago at 133 so suspect mental status more likely related to UTI -Will obtain further workup given # Chronic microcytic anemia -Hemoglobin 8.2 and MCV 92.6 -No evidence of ongoing blood loss -Hemoglobin 9.8 on 07/03 however unclear patient's baseline or most recent hemoglobin -Repeat in the a.m. and monitor for any evidence of blood loss -Continue Eliquis at this time and repeat in the a.m. #Hx DVT and Hx leg hematoma -Had leg hematoma at outlying facility however per report patient is back on Eliquis now -Continue Eliquis at this time #Type 2 diabetes mellitus -Glucose checks and sliding scale insulin -Given his unclear how well patient will be eating decreased long-acting insulin significantly, can uptitrate further pending progress #ESRD on HD -Consult nephrology -Renal diet -Daily weights, I's and O's -Makes some urine but not significant # History of schizophrenia based on documentation -Continue home chlorpromazine #DVT ppx: Yaritza Suarez MD Charges/Coding Visit Charges Inpatient E&M: 51202 Init Hosp L2
[2024-07-21 18:57] LABS: Magnesium 1.9 mg/dL (1.6-2.6)
[2024-07-21 19:45] LABS: Reflex Lactate? Y
--- NOTE | 2024-07-21 19:59 | ECHOD_ITS ---
Reason For Study: ATRIAL FIB-FLUTTER Procedure This was a 2D Doppler, Color Flow transthoracic echocardiogram. Exam performed portable in patient room. Left Ventricle Normal size and thickness. The left ventricular ejection fraction is 55 %. Unable to assess diastolic dysfunction due to arrhythmia. Right Ventricle Normal right ventricle. Atria The left and right atria are normal. Mitral Valve Trivial mitral valve insufficiency. Tricuspid Valve Trivial tricuspid valve insufficiency. Normal pulmonary artery pressure. Aortic Valve Trisinus/trileaflet aortic valve. Pulmonic Valve The pulmonic valve is not well visualized. Trivial pulmonic valve insufficiency. Great Vessels Normal sized aortic root. Pericardium/Pleural No pericardial effusion. MMode/2D Measurements & Calculations LVIDd: 4.6 cm IVSd: 0.93 cm Ao root diam: 2.8 cm LVIDs: 3.1 cm LVPWd: 0.75 cm RVDd: 2.9 cm FS: 33.1 % LAV(MOD-bp): 34.5 ml LVAd ap4: 19.8 cm2 SV(MOD-sp4): 27.9 ml LAV(MOD-bp) Indexed: 17.7 ml/m2 LVLd ap4: 6.9 cm LAV(MOD-sp2): 31.1 ml EDV(MOD-sp4): 46.4 ml LAV(MOD-sp4): 38.5 ml EDV(sp4-el): 48.0 ml LVAs ap4: 11.8 cm2 LVLs ap4: 6.5 cm ESV(MOD-sp4): 18.5 ml ESV(sp4-el): 18.2 ml EF(MOD-sp4): 60.2 % EF(sp4-el): 62.1 % SV(sp4-el): 29.8 ml LA A4 area: 16.9 cm2 LA dimension(2D): 3.5 cm RA A4 area: 15.7 cm2 TAPSE: 1.9 cm Doppler Measurements & Calculations MV E max reza: 144.6 cm/sec Ao V2 max: 120.0 cm/sec LV V1 max: 99.3 cm/sec Ao max P.8 mmHg LV V1 max P.0 mmHg TV V2 max: 239.9 cm/sec PA V2 max: 83.6 cm/sec TV max P.0 mmHg PA max PG (full): 0.30 mmHg ECHO/Echo Complete Interpretation Summary The left ventricular ejection fraction is 55 %. Unable to assess diastolic dysfunction due to arrhythmia. Ordering Physician: Maile Suarez Referring Physician: KATHLEEN ALVAREZ Performed By: Saige Fuentes RDCS
[2024-07-21 21:09] LABS: Lactic Acid 1.1 mmol/L (0.4-1.9)
[2024-07-21] MEDS: Cefepime HCl 1 GM in 0.9% Normal Saline (50mL MB+) 50 ML IV (21:16)
[2024-07-21] MEDS: Insulin Glargine-YFGN 100 UNIT/ML Pen 10 UNIT SC (21:18)
[2024-07-21] MEDS: Metoprolol Tartrate 100 MG Tablet PO (21:19)
[2024-07-21] MEDS: APIXABAN 5 MG TABLET PO (21:19)
[2024-07-21] MEDS: Acetaminophen 325 MG Tablet 650 MG PO (21:20)
[2024-07-21] MEDS: MELATONIN 3 MG TABLET PO (21:20)
[2024-07-21] MEDS: 0.9% Saline Lock 10 ML Syringe IV (21:26)
[2024-07-21] MEDS: Insulin Lispro 100 UNIT/ML INSULN.PEN SC (21:26)
[2024-07-21] MEDS: ChlorproMAZINE 25 MG Tablet 50 MG PO (21:26)
[2024-07-21 21:41] LABS: Osmolality, Serum 281 mOsm/KG (280-301)
[2024-07-21 23:23] LABS: Bedside Glucose 165 mg/dL (74-106)
[2024-07-22] VITALS (18 sets, daily range): BP systolic 86–135; BP diastolic 50–84; PULSE 79–140; RESP 16–26; TEMP 36.7–37.7; O2SAT 92–100
[2024-07-22] MEDS: Diltiazem 125 MG in Dextrose 5%-Water (100mL Bag) 100 ML 10 MG IV (01:54)
[2024-07-22] MEDS: Acetaminophen 325 MG Tablet 650 MG PO ×2 (06:37→23:01)
[2024-07-22 07:00] LABS: Bedside Glucose 109 mg/dL (74-106)
[2024-07-22 07:13] LABS: Hematocrit 23.5 % (37-47); Hemoglobin 7.4 g/dL (12.0-15.0); Mean Corp Hgb Conc 31.5 g/dL (32-36); Mean Corpuscular Volume 92.2 fL (81-99); Mean Platelet Vol. 9.5 fl (6.2-12.0); Platelet Count 248 K/mm3 (150-450); RBC Distribution Width CV 14.5 % (11.6-14.6); RBC Distribution Width SD 49.1 fl (35.1-43.9); Red Blood Count 2.55 M/mm3 (4.2-5.4); White Blood Count 9.2 K/mm3 (4.4-11.0)
[2024-07-22 08:30] LABS: International Normalized Ratio 2.4; Prothrombin Time (Protime)PT. 26.3 SECONDS (11.7-14.9)
[2024-07-22] MEDS: Furosemide 40 MG Tablet PO (09:27)
[2024-07-22] MEDS: Metoprolol Tartrate 100 MG Tablet PO ×2 (09:27→23:00)
[2024-07-22] MEDS: ChlorproMAZINE 25 MG Tablet 50 MG PO ×2 (09:27→23:01)
[2024-07-22] MEDS: APIXABAN 5 MG TABLET PO ×2 (09:27→22:59)
[2024-07-22] MEDS: Potassium Chloride Oral Tablet 10 MEQ PO (09:28)
[2024-07-22] MEDS: Glucerna Shake 120 ML LIQUID PO ×2 (09:31→11:26)
--- NOTE | 2024-07-22 10:30 | CASEMGMT ---
Social Work Patient's family to unit desk asking to speak to a oncology social work. Notified by Discharge Signal Mechanic that patient is from [facility] where it appears patient was admitted to at the beginning of June 2024. Met with patient, patient's Bryant, and patient's brother Tucker Gonzalez in room. Tucker reports family is concerned about patient and would like for patient to go to a different SNF at discharge. Bryant reports patient is on a head medication thordiazine and cannot tolerate any off brand of this medication, and reported feeling that [facility] was not giving this medication to patient or giving an off brand. This production underwriter clarified whether this may be Thorazine, but the continued to state Thorziadine. Family also shared that patient was at home with up until hospitalization at [facility] in [place] where patient was for about 3 weeks, then discharged to [facility]. During stay at [facility], patient with some level of kidney injury requiring dialysis. Tucker reports was told the dialysis would be temporary. Patient has been going to [facility] at noon, transported by [facility]. During conversation, patient intermittently participated in conversation as was tired and kept falling asleep. Patient did say that feels better with and brother visiting. Patient is reported to like the [facility] hazmat cdl driver, as well as the PT/OT staff at [facility], but overall concerned about level of supervision patient is getting and also the medication. Patient was able to say that would prefer not to go back to [facility], but is willing to go to a different SNF. Broached with family that not all facilities have transportation, so transportation may be something the family is asked to help with. This production underwriter agreed to get a list of SNF options for patient's geographical region, insurance network, with Medicare quality and star ratings. This production underwriter also offered to call [facility] Section Crews Activities Clerk to talk through patient/family concerns, and even have the case hardener come to talk directly about the concerns. No one voiced interest in SW looking into the [facility] coming and expressed preferring a list. Tucker expressed that he initialed a form in the ED and felt that Bryant needed to know about it. IMM form in patient's room, which Tucker acknowledged was the form. Educated Bryant to the IMM form and right to appeal discharge if patient/family felt this was needed at discharge. Confirmed demographic data, and emergency contact information; updating in record. Spoke with Catracho about POAHC and Living Will as this was marked upon admission as patient having. Bryant junior will look for forms at home and if not call the county attorney to check into to where the documents may be. Handoff to Discharge welder assistant of need for new SNF list; Handoff to covering Paulina FARRELL, as well. Plan: SNF, destination undetermined. Will need a new precert regardless of facility patient goes to. -LEA Chau
--- NOTE | 2024-07-22 10:41 | CASEMGMT ---
Discharge Planning A list of?SNF providers including quality and resource use data and consistent with the patient's preferred geographic region, medical needs, and insurance network was created in [employer] Guide.? This list was provided to the SW. Aleyda Loja Discharge Planning Asst.
--- NOTE | 2024-07-22 11:23 | WOUNDNOTE ---
wound photo: right posterior thigh
[2024-07-22] MEDS: Insulin Lispro 100 UNIT/ML INSULN.PEN SC ×3 (11:26→23:01)
[2024-07-22 11:31] LABS: Ferritin 1100 ng/mL (8-252); Iron 16 ug/dL (50-170); Iron Binding Capacity,Total 193 ug/dL (250-450); PERCENT IRON SATURATION 8.3 % (15.0-55.0)
[2024-07-22 11:37] LABS: ALB/GLOB Ratio 0.4 RATIO (0.9-2.4); AST(SGOT) 21 U/L (15-37); Alanine Aminotransfer ALT/SGPT 23 U/L (13-56); Albumin, Serum 1.9 g/dL (3.2-5.0); Alkaline Phosphatase 115 U/L (45-117); Anion Gap 10 (5-15); BUN 34 mg/dL (7-18); BUN/Creat Ratio 12.1 RATIO (10-20); Chloride 94 mmol/L (98-107); Cholesterol 123 mg/dL (200); Creatinine, Serum 2.81 mg/dL (0.55-1.02); EST Glomerular Filtration Rate 18 mL/min (>60); Est Glom Filt Rate - Afr Amer 22 mL/min (>60); Estimated Creatinine Clearance 20.73 ml/min; Globulin 4.9 g/dL (2.2-4.2); Glucose 114 mg/dL (74-106); High Density Lipoprotein 28 mg/dL; Magnesium 2.3 mg/dL (1.6-2.6); Phosphorus 4.8 mg/dL (2.5-4.9); Potassium 4.8 mmol/L (3.5-5.1); Protein, Total 6.8 g/dL (6.4-8.2); Sodium Level 129 mmol/L (136-145); Triglycerides 128 mg/dL; Very Low Density Lipoprotein 26 mg/dL (5-40)
[2024-07-22 11:46] LABS: Bedside Glucose 223 mg/dL (74-106)
--- NOTE | 2024-07-22 13:19 | PCM.CONS.R ---
Assessment & Plan Assessment/Plan (1) Acute kidney injury: (2) Atrial fibrillation with rapid ventricular response: (3) Acute UTI: (4) Encephalopathy: PLAN: Plan This is a 69-year-old female with past medical history significant for dialysis requiring acute kidney injury (baseline serum creatinine unknown) who was initiated on hemodialysis support approximately 2 months ago after admitted to [facility] for A-fib with RVR, rhabdomyolysis, decompensated heart failure and JAIYLN. Patient dialyzes Sunday. Patient dialyzed about 1/2-hour yesterday. There is no acute indication for DIGITAL MARKETING ANALYST today. We will evaluate for dialysis tomorrow. Will also continue to monitor for renal recovery. Patient is mildly hypervolemic, can continue on furosemide as ordered. Recommend strict urine output measurement. Will obtain bladder scan postvoid to rule out obstructive component contributing to JAILYN. Patient is on antibiotics for E. coli UTI. Blood cultures are pending. CT head did not show any acute process. Chest x-ray from admission reviewed which showed mild degree of vascular congestion. For A-fib, patient is on Cardizem and metoprolol; echo ordered. Blood pressure is low-normal and recommend holding Metoprolol morning of dialysis. Further orders forthcoming as hospitalization evolves, thank you for allowing us to participate in the care of Ms. Cannon. HPI Consult Data Date of Consult: 07/22/24 HPI Narrative HPI Narrative: GLADIS CANNON, is a 69 F with past medical history significant for chronic A-fib, diabetes mellitus type 2, schizophrenia, history of DVT, history of dialysis requiring acute kidney injury (baseline SCr unknown) who is currently dialyzing at [facility] [place] on a Sunday schedule. Patient was initiated on hemodialysis support when admitted to [facility] a few months ago. She was admitted to [facility] for A-fib with RVR, rhabdomyolysis (CPK peaked around 45,000), and decompensated heart failure with last known EF 42%. JAILYN multifactorial felt to be secondary from ATN. At time of hospital discharge arrangements were made for patient to dialyze at [facility] followed by Dr. Graham. Patient was dialyzing yesterday at the kidney center when she was noted to have altered mental status changes, heart rate sustained 150s to 160s without improvement with small fluid bolus challenge therefore dialysis was truncated, squad was called and patient was taken to the emergency room for further evaluation and treatment. Patient dialyzed about 1/2-hour. In the emergency room patient was noted to be in A-fib with RVR, also UA concerning for UTI, patient admitted for further evaluation and treatment. Today patient is more alert than yesterday but has difficult time recalling recent events. She denies any complaints. Patient sitting in chair finishing lunch. [facility] Medical History Acute kidney injury superimposed on chronic kidney disease Home Medications ?Medication ?Instructions ?Recorded ?Last Taken ?Type acetaminophen 325 mg tablet 325 mg PO Q4H PRN fever or pain 07/21/24 Unknown History apixaban 5 mg tablet 5 mg PO BID 07/21/24 Unknown History chlorpromazine 50 mg tablet 50 mg PO BID 07/21/24 Unknown History furosemide 40 mg tablet 40 mg PO .COMPLEX EDEMA 07/21/24 Unknown History hydrocortisone 1 % topical cream 1 applic topical DAILY HEMORROIDS 07/21/24 Unknown History (Ala-Marlo) insulin glargine 100 unit/mL (3 22 unit subcut QPM 07/21/24 Unknown History mL) subcutaneous pen (Lantus Solostar U-100 Insulin) insulin lispro 100 unit/mL See Protocol subcut DAILY 07/21/24 Unknown History subcutaneous pen (Humalog KwikPen (U-100) Insulin) metoprolol tartrate 100 mg tablet 100 mg PO .COMPLEX 07/21/24 Unknown History metoprolol tartrate 100 mg tablet 100 mg PO QHS HTN 07/21/24 Unknown History (Lopressor) oxycodone 5 mg tablet 5 mg PO Q6H PRN pain 07/21/24 Unknown History potassium chloride 10 mEq 10 meq PO .COMPLEX HYPOKALEMIA 07/21/24 Unknown History tablet,extended release(part/cryst) (Klor-Con M) vitamin B comp no.3-folic acid 1 1 tab PO DAILY 07/21/24 Unknown History mg-vit C 60 mg-biotin 300 mcg tablet (Clover-Boaz Rx) Allergy/AdvReac Type Severity Reaction Status Date / Time propoxyphene (From Darvon) Allergy Mild PT UNABLE Verified 07/21/24 13:32 TO RESPOND-NEEDS F/U haloperidol (From Haldol) Allergy PT UNABLE Verified 07/21/24 13:32 TO RESPOND-NEEDS F/U Penicillins Allergy PT UNABLE Verified 07/21/24 13:32 TO RESPOND-NEEDS F/U Social History Smoking Status: Never smoker ROS ROS Narrative As in HPI and past medical history Physical Exam Narrative Alert and oriented, no apparent distress S1, S2, rhythm irregular, rate controlled Lung sounds clear Abdomen soft, nontender Edema bilateral lower legs Tunneled dialysis catheter dressing clean, dry and intact Lab / Micro Data 07/22/24 06:58 07/22/24 06:58 Labs: Laboratory Results - last 24 hr 07/21/24 13:30: POC Glucose 221 H 07/21/24 13:40: WBC 15.9 H, RBC 2.83 L, Hgb 8.2 L, Hct 26.2 L, MCV 92.6, MCH 29.0, MCHC 31.3 L, RDW Std Deviation 49.5 H, RDW Coeff of Rolly 14.6, Plt Count 273, MPV 9.3, Immature Gran % (Auto) 2.100 H, Neut % (Auto) 79.9 H, Lymph % (Auto) 5.7 L, [place] % (Auto) 11.3 H, Eos % (Auto) 0.6, Baso % (Auto) 0.4, Absolute Neuts (auto) 12.7 H, Absolute Lymphs (auto) 0.90, Nucleated RBC % 0, Differential Comment SCANNED, Diff Path Review March, PT 24.3 H, INR 2.2, APTT 46.4 H, Sodium 127 L, Potassium 4.6, Chloride 91 L, Carbon Dioxide 27.0, Anion Gap 9, BUN 31 H, Creatinine 2.33 H, Estim Creat Clear Calc 27.72, Est GFR (MDRD) Af Amer 27 L, Est GFR (MDRD) Non-Af 22 L, BUN/Creatinine Ratio 13.3, Glucose 243 H, Calcium 9.0, Magnesium 1.9, Troponin I High Sens 4 07/21/24 15:36: Lactic Acid 2.0 07/21/24 15:43: Urine Color YELLOW, Urine Clarity Cloudy, Urine pH 6.5, Ur Specific [place] 1.010, Urine Protein 30 H, Urine Glucose (UA) Normal, Urine Ketones Negative, Urine Occult Blood 150 H, Urine Nitrite Negative, Urine Bilirubin Negative, Urine Urobilinogen Normal, Ur Leukocyte Esterase 500 H, Urine RBC 0 SEEN, Urine WBC >100 SEEN, Ur Squamous Epith Cells 0 SEEN, Ur Transition Epith Cell , Urine Bacteria 3+, Urine Mucus 0 SEEN, Urine Yeast 2+ 07/21/24 15:55: Troponin I High Sens 4 07/21/24 20:37: Serum Osmolality 281, Lactic Acid 1.1 07/21/24 21:18: POC Glucose 165 H 07/22/24 06:41: POC Glucose 109 H 07/22/24 06:58: WBC 9.2, RBC 2.55 L, Hgb 7.4 L, Hct 23.5 L, MCV 92.2, MCH 29.0, MCHC 31.5 L, RDW Std Deviation 49.1 H, RDW Coeff of Rolly 14.5, Plt Count 248, MPV 9.5, PT 26.3 H, INR 2.4, Sodium 129 L, Potassium 4.8, Chloride 94 L, Carbon Dioxide 25.0, Anion Gap 10, BUN 34 H, Creatinine 2.81 H, Estim Creat Clear Calc 20.73, Est GFR (MDRD) Af Amer 22 L, Est GFR (MDRD) Non-Af 18 L, BUN/Creatinine Ratio 12.1, Glucose 114 H, Calcium 9.0, Phosphorus 4.8, Magnesium 2.3, Iron 16 L, TIBC 193 L, Iron Saturation 8.3 L, Ferritin 1100 H, Total Bilirubin 0.10 L, AST 21, ALT 23, Alkaline Phosphatase 115, Total Protein 6.8, Albumin 1.9 L, Globulin 4.9 H, Albumin/Globulin Ratio 0.4 L, Triglycerides 128, Cholesterol 123, LDL Cholesterol 69, VLDL Cholesterol 26, HDL Cholesterol 28 L, TSH 6.920 H 07/22/24 11:25: POC Glucose 223 H Micro: Microbiology 07/21/24 15:43 Urine, Catheterized Urine Culture - Preliminary Presumptive E. coli 07/22/24 10:43 Stool Stool Occult Blood (NEDA) - Final Imaging Radiology Impression Chest X-Ray 07/21/24 13:55 IMPRESSION: Mild degree of vascular congestion and bibasilar atelectasis. Electronically Signed: Chaitanya Landis MD at 14:29 EDT , Brain CT 07/21/24 14:25 IMPRESSION: Chronic involutional changes of the brain. Electronically Signed: Chaitanya Landis MD at 14:51 EDT Reading Location ID and State: [address] [place] [address] , Service support , ADDENDUM: 07/21/24 1458 IMPRESSION: Chronic involutional changes of the brain. N.B. : The above Results were Read Back by Chaitanya Landis MD to Dr Susanne DO, and understanding confirmed on 07/21/2024 14:52:01 (ET). Electronically Signed: Chaiatnya Landis MD at 14:51 EDT Reading Location ID and State: [address] [place] [address] , Service support , Head/Neck CTA 07/21/24 14:50 IMPRESSION: Normal CTA Head and neck with contrast. N.B. : The above Results were Read Back by Chaitanya Landis MD to Dr Susanne DO, and understanding confirmed on 07/21/2024 15:21:17 (ET). Electronically Signed: Chaitanya Landis MD at 15:22 EDT Reading Location ID and State: [address] [place] [address] , Service support , ADDENDUM: 07/21/24 1529
--- NOTE | 2024-07-22 13:25 | CHAPLAIN ---
Type of Pastoral Visit _x__ Initial Visit ___ Follow-up Visit ___ On-call Visit ___ General Patient Visit ___ Spiritual Assessment ___ Family Conference ___ Bereavement ___ Rapid Response ___ Code Blue ___ Other (describe below) Pastoral Care Referral From _x__ Patient ___ Family ___ Nurse ___ Physician ___ Nanosystems Engineer ___ Capsule Maker ___ Other (describe below) Sacrament/Intervention _x__ Active listening ___ Anointing ___ Moravian ___ Bereavement ___ Communion ___ Heather exploration ___ ___ Life review _x__ Prayer ___ Reconciliation ___ Sacrament of Sick _x__ Supportive presence ___ Wedding ___ Other (describe below) Pastoral Comments patient is alone in the room after several family members left; pt is tired and wants to rest per her request; however patient does welcome prayer and the offer of support; pt does not engage in conversation but does answer a few questions before visit ended; pt did not have further concerns other than getting well and feeling better
--- NOTE | 2024-07-22 13:45 | CASEMGMT ---
Addendum entered by Aleyda Loja 07/23/24 13:54: [facility] has declined. Aleyda Loja DC Planning Asst. Addendum entered by Aleyda Loja 07/23/24 08:05: [facility] declined d/t being out of network. Aleyda Loja DC Planning Asst. Addendum entered by Aleyda Loja 07/22/24 16:09: [facility]. Aleyda Loja DC Planning Asst. Addendum entered by Aleyda Loja 07/22/24 14:34: [facility] declined d/t having no beds. Aleyda Loja DC Planning Asst. Original Note: Discharge Planning Referral sent to Jaimee Colindres, and Mandie Sotomayor via [facility]. Aleyda Loja DC Planning Asst.
[2024-07-22 13:51] LABS: Pathologist Review Reviewed
[2024-07-22] MEDS: Cefepime HCl 0.5 GM in 0.9% Normal Saline (50mL MB+) 50 ML IV (14:03)
--- NOTE | 2024-07-22 14:45 | PN_ITS ---
Subjective Subjective Patient seen and examined. He has also had bedside. Patient had a flat affect but was able to answer questions though she seemed a bit confused. General admits that she was at dialysis and became confused and so she was brought into the ED. She was found to be in A-fib with RVR. She denies any fever, chills, chest pain, palpitations, dizziness, nausea vomiting or any other symptoms. Review of systems otherwise negative. Objective Data Objective Data Vital Signs: Vital Signs Temp Pulse Resp BP Pulse Ox O2 Del Method 99.2 F H 110 H 19 H 93/68 98 Room Air 07/22/24 08:00 07/22/24 13:00 07/22/24 13:00 07/22/24 13:00 07/22/24 13:00 07/22/24 14:00 Oxygen Delivery Method Room Air Weight: 199 lb 4.766 oz Body Mass Index (BMI) 35.3 Intake & Output: Intake and Output for Last 24 Hours 07/20/24 07/21/24 07/22/24 23:59 23:59 23:59 Intake Total 181.17 / 308.67 908.75 / 908.75 Output Total 0 / 0 Balance 181.17 / 308.67 908.75 / 908.75 Lab / Micro Data 07/22/24 06:58 07/22/24 06:58 Labs: Laboratory Results - last 24 hr 07/21/24 13:40: Diff Path Review Reviewed, PT 24.3 H, INR 2.2, APTT 46.4 H, Magnesium 1.9 07/21/24 15:36: Lactic Acid 2.0 07/21/24 15:43: Urine Color YELLOW, Urine Clarity Cloudy, Urine pH 6.5, Ur Specific [place] 1.010, Urine Protein 30 H, Urine Glucose (UA) Normal, Urine Ketones Negative, Urine Occult Blood 150 H, Urine Nitrite Negative, Urine Bilirubin Negative, Urine Urobilinogen Normal, Ur Leukocyte Esterase 500 H, Urine RBC 0 SEEN, Urine WBC >100 SEEN, Ur Squamous Epith Cells 0 SEEN, Ur Transition Epith Cell , Urine Bacteria 3+, Urine Mucus 0 SEEN, Urine Yeast 2+ 07/21/24 15:55: Troponin I High Sens 4 07/21/24 20:37: Serum Osmolality 281, Lactic Acid 1.1 07/21/24 21:18: POC Glucose 165 H 07/22/24 06:41: POC Glucose 109 H 07/22/24 06:58: WBC 9.2, RBC 2.55 L, Hgb 7.4 L, Hct 23.5 L, MCV 92.2, MCH 29.0, MCHC 31.5 L, RDW Std Deviation 49.1 H, RDW Coeff of Rolly 14.5, Plt Count 248, MPV 9.5, PT 26.3 H, INR 2.4, Sodium 129 L, Potassium 4.8, Chloride 94 L, Carbon Dioxide 25.0, Anion Gap 10, BUN 34 H, Creatinine 2.81 H, Estim Creat Clear Calc 20.73, Est GFR (MDRD) Af Amer 22 L, Est GFR (MDRD) Non-Af 18 L, BUN/Creatinine Ratio 12.1, Glucose 114 H, Calcium 9.0, Phosphorus 4.8, Magnesium 2.3, Iron 16 L , TIBC 193 L, Iron Saturation 8.3 L, Ferritin 1100 H, Total Bilirubin 0.10 L, AST 21, ALT 23, Alkaline Phosphatase 115, Total Protein 6.8, Albumin 1.9 L, G lobulin 4.9 H, Albumin/Globulin Ratio 0.4 L, Triglycerides 128, Cholesterol 123, LDL Cholesterol 69, VLDL Cholesterol 26, HDL Cholesterol 28 L, TSH 6.920 H 07/22/24 11:25: POC Glucose 223 H Micro: Microbiology 07/21/24 22:52 Wound - Leg, Right Gram Stain - Final 07/21/24 15:43 Urine, Catheterized Urine Culture - Preliminary Presumptive E. coli 07/22/24 10:43 Stool Stool Occult Blood (NEDA) - Final Radiography Diagnostic Testing: Radiology Impression Brain CT 07/21/24 14:25 IMPRESSION: Chronic involutional changes of the brain. Electronically Signed: Chaitanya Landis MD at 14:51 EDT , ADDENDUM: 07/21/24 8827 IMPRESSION: Chronic involutional changes of the brain. N.B. : The above Results were Read Back by Chaitanya Landis MD to Dr Susanne DO, and understanding confirmed on 07/21/2024 14:52:01 (ET). Electronically Signed: Chaitanya Landis MD at 14:51 EDT , Head/Neck CTA 07/21/24 14:50 IMPRESSION: Normal CTA Head and neck with contrast. N.B. : The above Results were Read Back by Chaitanya Landis MD to Dr Susanne DO, and understanding confirmed on 07/21/2024 15:21:17 (ET). Electronically Signed: Chaitanya Landis MD at 15:22 EDT , ADDENDUM: 07/21/24 1529 IMPRESSION: Normal CTA Head and neck with contrast. N.B. : The above Results were Read Back by Chaitanya Landis MD to Dr Susanne DO, and understanding confirmed on 07/21/2024 15:21:17 (ET). Electronically Signed: Chaitanya Landis MD at 15:22 EDT , Physical Exam Const alert Constitutional Narrative: flat affect Orientation / Consciousness: lethargic HEENT normocephalic and head/scalp atraumatic Mouth: dry mucous membranes Eyes PERRL and EOMs intact bilaterally Neck no lymphadenopathy and supple Lymph Lymphatic: no lymphadenopathy noted Resp normal respiratory effort, normal air movement and clear to auscultation bilaterally Resp Narrative: mildly diminished breath sounds bibasally, no wheezes or crackles,. Cardio Cardio Narrative: afib, poor rate control Peripheral Pulses: pulses 2+ throughout GI normal to inspection, nondistended, normoactive bowel sounds, soft to palpation, non-tender and non-distended Extremity normal capillary refill, no clubbing, cyanosis or edema and no calf tenderness Neuro CN's II-XII intact bilaterally, no focal motor deficits, no sensory deficits noted and deep tendon reflexes 2+ bilaterally Motor Exam: general weakness Psych Psych Narrative: flat affect Mood & Affect: flat affect Assessment & Plan Assessment/Plan (1) Acute hyponatremia: (2) Acute kidney injury: (3) Atrial fibrillation with rapid ventricular response: (4) Acute UTI: PLAN: Plan #Afib with RVR * Patient on Cardizem drip. P.o. metoprolol resumed. * Will wean off of Cardizem as tolerated. Continue Eliquis. 2D echo ordered. * TSH and magnesium within normal limits. * #Hyponatremia: Resolving. Will monitor. #Acute encephalopathy: Likely due to UTI and hyponatremia. On IV cefepime. Urine cultures growing E. coli. Will de-escalate antibiotics to IV ceftriaxone. Await speciation. #Anemia: * Hemoglobin is 7.4. Was 8.2 yesterday. * Currently on Eliquis. Will continue for now. * Stool for occult blood ordered as well as iron panel. * Listed for occult blood is positive then will DC Eliquis. #History of DVT and left lower extremity hematoma. Had a leg hematoma on admission at [facility] recently. Now still on Eliquis. Will continue Eliquis for now. #Type II diabetes mellitus: on insulin Sliding scale. Accuchekcs ACHS. Lantus dose decreased from 22 units to 10 units on admission due to altered mental status. #ESRD: On dialysis. Nephrology consulted. #History of schizophrenia: Stable DVT prophylaxis: Eliquis #CODE STATUS: Full code Charges/Coding Visit Charges Inpatient E&M: 00467 Subs Hosp L2
[2024-07-22 15:47] LABS: Hemoglobin A1c 6.8 % (3.8-5.6)
[2024-07-22 17:02] LABS: Bedside Glucose 203 mg/dL (74-106)
[2024-07-22] MEDS: Insulin Glargine-YFGN 100 UNIT/ML Pen 10 UNIT SC (23:00)
[2024-07-22 23:32] LABS: Bedside Glucose 160 mg/dL (74-106)
[2024-07-23] VITALS (18 sets, daily range): BP systolic 100–229; BP diastolic 53–99; PULSE 91–120; RESP 14–19; TEMP 36.3–37.3; O2SAT 94–100; BMI 35.3; BMI 34.7
[2024-07-23 05:58] LABS: Absolute Lymphocyte Count 1.16 X10^3/uL (0.83-4.51); Absolute Neutrophil Count 5.9 X10^3/uL (2.0-7.7); Basophil# 0.04 X10^3/uL; Basophil% 0.5 % (0-1); Eosinophil# 0.16 X10^3/uL; Eosinophils% 1.8 % (0-5); Hematocrit 21.5 % (37-47); Hemoglobin 6.7 g/dL (12.0-15.0); Lymphocyte # 1.16 X10^3/ul (0.83-4.51); Lymphocyte % 13.2 % (19-41); Mean Corp Hgb Conc 31.2 g/dL (32-36); Mean Corpuscular Hgb 28.9 pg (27.0-32.0); Mean Corpuscular Volume 92.7 fL (81-99); Mean Platelet Vol. 9.4 fl (6.2-12.0); Monocyte# 1.29 X10^3/uL; Monocyte% 14.6 % (0-10); NRBC Flagged by Analyzer 0 % (0-5); Neutrophil # 5.88 X10^3/uL (2.7-7.7); Neutrophil % 66.6 % (47-70); Platelet Count 258 K/mm3 (150-450); RBC Distribution Width CV 14.7 % (11.6-14.6); RBC Distribution Width SD 49.6 fl (35.1-43.9); Red Blood Count 2.32 M/mm3 (4.2-5.4); White Blood Count 8.8 K/mm3 (4.4-11.0)
[2024-07-23 06:27] LABS: Anion Gap 9 (5-15); BUN 46 mg/dL (7-18); BUN/Creat Ratio 11.7 RATIO (10-20); Calcium,Total 8.6 mg/dL (8.5-10.1); Chloride 93 mmol/L (98-107); Creatinine, Serum 3.92 mg/dL (0.55-1.02); EST Glomerular Filtration Rate 12 mL/min (>60); Est Glom Filt Rate - Afr Amer 15 mL/min (>60); Estimated Creatinine Clearance 14.86 ml/min; Glucose 111 mg/dL (74-106); Magnesium 2.3 mg/dL (1.6-2.6); Potassium 4.4 mmol/L (3.5-5.1); Sodium Level 127 mmol/L (136-145)
[2024-07-23] MEDS: oxyCODONE 5 MG Tablet PO (06:41)
[2024-07-23 06:47] LABS: Bedside Glucose 97 mg/dL (74-106)
[2024-07-23] MEDS: 0.9% Normal Saline 1,000 ML IV.SOLN. 1000 ML OPERA.SITE (08:15)
[2024-07-23] MEDS: 0.9% Saline Lock 10 ML Syringe IV ×5 (08:16→21:47)
[2024-07-23] MEDS: PureFlow B 3K Dialysis Soln 1 BAG 6 BAG PF (08:16)
--- NOTE | 2024-07-23 10:59 | CASEMGMT ---
TC to [facility] and [facility] states that the pt is still active with their services M/W/F at 1220. [facility] updated that the tentative plan is for the pt to go to [facility] at time of DC and the [place] branch would be closer than the [place] branch.
--- NOTE | 2024-07-23 11:10 | CASEMGMT ---
Patient has been declined by all 3 of their choices. SW went to patient's room and notified patient and her Bryant. Bryant is reviewing the list and will pick some more choices. BUD will check back. Diane HSU
[2024-07-23] MEDS: Heparin 10,000 UNITS/10 ML Vial IV (11:13)
[2024-07-23] MEDS: Ceftriaxone 1 GM/50 ML BAG IV (12:01)
[2024-07-23] MEDS: ChlorproMAZINE 25 MG Tablet 50 MG PO ×2 (12:04→20:57)
[2024-07-23 12:30] LABS: Bedside Glucose 82 mg/dL (74-106)
--- NOTE | 2024-07-23 13:51 | CASEMGMT ---
Addendum entered by Aleyda Loja 07/23/24 15:07: [facility] accepted and [facility]. Aleyda Loja DC Planning Asst. Original Note: Discharge Planning Referral sent to [facility] and [facility]. Aleyda Loja DC Planning Asst.
--- NOTE | 2024-07-23 14:51 | PN.HOSP_ITS ---
Reason for Visit Reason for Visit: Diagnoses Hypo-osmolality and hyponatremia (07/21/24) Unspecified atrial fibrillation (07/21/24) Acute kidney failure, unspecified (07/21/24) End stage renal disease (07/21/24) Urinary tract infection, site not specified (07/21/24) Dependence on renal dialysis (07/21/24) Subjective Subjective No new events Objective Data Objective Data Vital Signs: Vital Signs Temp Pulse Resp BP Pulse Ox O2 Del Method 36.5 C L 105 H 18 120/98 H 100 Room Air 07/23/24 11:30 07/23/24 11:30 07/23/24 11:30 07/23/24 11:30 07/23/24 11:30 07/23/24 11:30 Oxygen Delivery Method Room Air Weight: 88.8 kg Body Mass Index (BMI) 34.7 Intake & Output: Intake and Output for Last 24 Hours 07/21/24 07/22/24 07/23/24 23:59 23:59 23:59 Intake Total 181.17 / 308.67 1308.75 / 1308.75 50 / 50 Output Total 0 / 0 1650 / 1650 Balance 181.17 / 308.67 1308.75 / 1308.75 -1600 / -1600 Lab / Micro Data 07/23/24 05:42 07/23/24 05:42 Labs: Laboratory Results - last 24 hr 07/22/24 06:58: Hemoglobin A1c 6.8 H 07/22/24 16:40: POC Glucose 203 H 07/22/24 22:54: POC Glucose 160 H 07/23/24 05:42: WBC 8.8, RBC 2.32 L, Hgb 6.7 L, Hct 21.5 L, MCV 92.7, MCH 28.9, MCHC 31.2 L, RDW Std Deviation 49.6 H, RDW Coeff of Rolly 14.7 H, Plt Count 258, MPV 9.4, Immature Gran % (Auto) 3.300 H, Neut % (Auto) 66.6, Lymph % (Auto) 13.2 L, [place] % (Auto) 14.6 H, Eos % (Auto) 1.8, Baso % (Auto) 0.5, Absolute Neuts (auto) 5.9, Absolute Lymphs (auto) 1.16, Nucleated RBC % 0, Sodium 127 L, Potassium 4.4, Chloride 93 L, Carbon Dioxide 25.0, Anion Gap 9, BUN 46 H, C reatinine 3.92 H, Estim Creat Clear Calc 14.86, Est GFR (MDRD) Af Amer 15 L, Est GFR (MDRD) Non-Af 12 L, BUN/Creatinine Ratio 11.7, Glucose 111 H, Calcium 8.6, Magnesium 2.3 07/23/24 06:23: POC Glucose 97 07/23/24 08:45: Blood Type O POSITIVE, Antibody Screen NEGATIVE, Crossmatch See Detail 07/23/24 12:00: POC Glucose 82 Micro: Microbiology 07/21/24 15:43 Urine, Catheterized Urine Culture - Final Presumptive E. coli 07/21/24 15:36 Blood Culture (Wb) - Anticubital Left Blood Culture - Preliminary Coag Negative Staph 07/21/24 22:52 Wound - Leg, Right Gram Stain - Final 07/22/24 10:43 Stool Stool Occult Blood (NEDA) - Final Radiography Diagnostic Testing: Radiology Impression Echocardiogram 07/21/24 19:59 Interpretation Summary The left ventricular ejection fraction is 55 %. Unable to assess diastolic dysfunction due to arrhythmia. Ordering Physician: Maile Suarez Referring Physician: KATHLEEN ALVAREZ Performed By: Saige Fuentes RDCS Physical Exam Const alert and no apparent distress HEENT head/scalp atraumatic, moist oral mucous membranes, oropharynx normal and dentition normal Resp normal respiratory effort, no retractions, no use of accessory muscles and clear to auscultation bilaterally Cardio regular rate, regular rhythm, S1 normal heart sound and S2 normal heart sound GI normal to inspection, nondistended, normoactive bowel sounds, soft to palpation and non-tender Extremity normal to inspection Assessment & Plan Assessment/Plan (1) Acute hyponatremia: (2) Acute kidney injury: (3) Atrial fibrillation with rapid ventricular response: (4) Acute UTI: PLAN: Plan A-fib with RVR * apixaban held * Had received a diltiazem bolus as well as a drip was turned off. Currently on metoprolol tartrate. UTI * E. coli resistant to ampicillin, cefazolin, Cipro, Levaquin. * Currently on ceftriaxone End-stage renal disease * Nephrology on consult. Patient ongoing with hemodialysis. Anemia * Hemoccult negative. Hemoglobin has dropped from 9.8 on AC down to 6.7 today. Iron is low at 16 with ferritin high to 1100. * Patient transfuse 1 unit of packed blood cells. * Apixaban held. * May be more anemia with chronic disease. Hyponatremia * Unclear significance and etiology at this time * Monitor for now. VTE prophylaxis with SCDs. Charges/Coding Visit Charges Inpatient E&M: 57835 Subs Hosp L2
--- NOTE | 2024-07-23 15:25 | CASEMGMT ---
SW asked [facility] to please start the pre-cert. Plan: d/c to [facility] pending pre-cert. Diane Dia MSW BLADDER TRIMMER
[2024-07-23] MEDS: Insulin Lispro 100 UNIT/ML INSULN.PEN SC (16:48)
[2024-07-23 17:13] LABS: Bedside Glucose 152 mg/dL (74-106)
[2024-07-23] MEDS: Metoprolol Tartrate 100 MG Tablet PO (20:56)
[2024-07-23] MEDS: MELATONIN 3 MG TABLET PO (21:47)
[2024-07-23] MEDS: Insulin Glargine-YFGN 100 UNIT/ML Pen 10 UNIT SC (21:47)
[2024-07-23] MEDS: Acetaminophen 325 MG Tablet 650 MG PO (21:47)
[2024-07-23 22:12] LABS: Bedside Glucose 112 mg/dL (74-106)
[2024-07-24] MEDS: oxyCODONE 5 MG Tablet PO (03:00)
[2024-07-24 03:02] VITALS: BP 110/77; PULSE 93; RESP 18; TEMP 36.2; O2SAT 95
[2024-07-24 04:59] LABS: Absolute Lymphocyte Count 1.65 X10^3/uL (0.83-4.51); Absolute Neutrophil Count 7.9 X10^3/uL (2.0-7.7); Basophil# 0.03 X10^3/uL; Basophil% 0.3 % (0-1); Eosinophil# 0.19 X10^3/uL; Eosinophils% 1.6 % (0-5); Hematocrit 25.8 % (37-47); Hemoglobin 8.1 g/dL (12.0-15.0); Lymphocyte # 1.65 X10^3/ul (0.83-4.51); Lymphocyte % 13.9 % (19-41); Mean Corp Hgb Conc 31.4 g/dL (32-36); Mean Corpuscular Hgb 29.2 pg (27.0-32.0); Mean Corpuscular Volume 93.1 fL (81-99); Mean Platelet Vol. 8.7 fl (6.2-12.0); Monocyte# 1.73 X10^3/uL; Monocyte% 14.6 % (0-10); NRBC Flagged by Analyzer 0 % (0-5); Neutrophil # 7.93 X10^3/uL (2.7-7.7); Neutrophil % 66.6 % (47-70); POSITIVE DIFFERENTIAL YES; Platelet Count 295 K/mm3 (150-450); RBC Distribution Width CV 14.8 % (11.6-14.6); RBC Distribution Width SD 50.8 fl (35.1-43.9); Red Blood Count 2.77 M/mm3 (4.2-5.4); White Blood Count 11.9 K/mm3 (4.4-11.0)
[2024-07-24 05:10] LABS: Differential Indicated SCAN CRITERIA MET
[2024-07-24 06:18] LABS: Differential Comment SCANNED
[2024-07-24 06:47] LABS: Bedside Glucose 101 mg/dL (74-106)
[2024-07-24 09:10] VITALS: BP 128/74; PULSE 95; RESP 18; TEMP 36.6; O2SAT 96
[2024-07-24 09:16] VITALS: PULSE 97
[2024-07-24] MEDS: Metoprolol Tartrate 100 MG Tablet PO (09:16)
[2024-07-24] MEDS: ChlorproMAZINE 25 MG Tablet 50 MG PO (09:16)
[2024-07-24] MEDS: Furosemide 40 MG Tablet PO (09:16)
[2024-07-24] MEDS: Ceftriaxone 1 GM/50 ML BAG IV (09:17)
[2024-07-24] MEDS: Acetaminophen 325 MG Tablet 650 MG PO (09:17)
--- NOTE | 2024-07-24 09:35 | PN.HOSP_ITS ---
Reason for Visit Reason for Visit: Diagnoses Hypo-osmolality and hyponatremia (07/21/24) Unspecified atrial fibrillation (07/21/24) Acute kidney failure, unspecified (07/21/24) End stage renal disease (07/21/24) Urinary tract infection, site not specified (07/21/24) Dependence on renal dialysis (07/21/24) Subjective Subjective No new complaints. Objective Data Objective Data Vital Signs: Vital Signs Temp Pulse Resp BP Pulse Ox O2 Del Method 36.6 C 97 18 128/74 H 96 Room Air 07/24/24 09:10 07/24/24 09:16 07/24/24 09:10 07/24/24 09:10 07/24/24 09:10 07/24/24 09:31 Oxygen Delivery Method Room Air Weight: 88.8 kg Body Mass Index (BMI) 34.7 Intake & Output: Intake and Output for Last 24 Hours 07/22/24 07/23/24 07/24/24 23:59 23:59 23:59 Intake Total 1308.75 / 1308.75 51 / 51 240 / 240 Output Total 0 / 0 1650 / 1650 0 / 0 Balance 1308.75 / 1308.75 -1599 / -1599 240 / 240 Lab / Micro Data 07/24/24 04:50 07/23/24 05:42 Labs: Laboratory Results - last 24 hr 07/23/24 08:45: Blood Type O POSITIVE, Antibody Screen NEGATIVE, Crossmatch See Detail 07/23/24 12:00: POC Glucose 82 07/23/24 16:47: POC Glucose 152 H 07/23/24 21:43: POC Glucose 112 H 07/24/24 04:50: WBC 11.9 H, RBC 2.77 L, Hgb 8.1 L, Hct 25.8 L, MCV 93.1, MCH 29.2, MCHC 31.4 L, RDW Std Deviation 50.8 H, RDW Coeff of Rolly 14.8 H, Plt Count 295, MPV 8.7, Immature Gran % (Auto) 3.000 H, Neut % (Auto) 66.6, Lymph % (Auto) 13.9 L, [place] % (Auto) 14.6 H, Eos % (Auto) 1.6, Baso % (Auto) 0.3, Absolute Neuts (auto) 7.9 H, Absolute Lymphs (auto) 1.65, Nucleated RBC % 0, Differential Comment SCANNED, Diff Path Review March foll 07/24/24 06:28: POC Glucose 101 Micro: Microbiology 07/21/24 15:36 Blood Culture (Wb) - Anticubital Left Blood Culture - Final Staphylococcus epidermidis 07/21/24 22:52 Wound - Leg, Right Gram Stain - Final 07/21/24 22:52 Wound - Leg, Right Wound Culture - Preliminary Pseudomonas aeruginosa Staphylococcus aureus 07/21/24 15:43 Urine, Catheterized Urine Culture - Final Presumptive E. coli 07/22/24 10:43 Stool Stool Occult Blood (NEDA) - Final Radiography Diagnostic Testing: Radiology Impression Echocardiogram 07/21/24 19:59 Interpretation Summary The left ventricular ejection fraction is 55 %. Unable to assess diastolic dysfunction due to arrhythmia. Ordering Physician: Maile Suarez Referring Physician: KATHLEEN ALVAREZ Performed By: Saige Fuentes RDCS Physical Exam Const Constitutional Narrative: working with therapy. up at the side of the bed with a walker in front of her. HEENT head/scalp atraumatic and moist oral mucous membranes Resp normal respiratory effort, no retractions, no use of accessory muscles and clear to auscultation bilaterally Cardio regular rate, regular rhythm, S1 normal heart sound and S2 normal heart sound GI normal to inspection, nondistended, normoactive bowel sounds, soft to palpation, non-tender and non-distended Assessment & Plan Assessment/Plan (1) Acute hyponatremia: (2) Acute kidney injury: (3) Atrial fibrillation with rapid ventricular response: (4) Acute UTI: PLAN: Plan A-fib with RVR * apixaban held * Had received a diltiazem bolus as well as a drip was turned off. Currently on metoprolol tartrate. UTI * E. coli resistant to ampicillin, cefazolin, Cipro, Levaquin. * Currently on ceftriaxone. Discharge with nitrofurantoin Right thigh wound * polymicrobial w Pseudomonas * Discharge with levofloxacin End-stage renal disease * Nephrology on consult. Patient ongoing with hemodialysis. Anemia * Hemoccult negative. Hemoglobin has dropped from 9.8 on AC down to 6.7 today. Iron is low at 16 with ferritin high to 1100. * Patient transfuse 1 unit of packed blood cells. Hemoglobin improved to 8.1. * Apixaban held. * May be more anemia with chronic disease. * Start every other day dosing of ferrous sulfate Hyponatremia * Unclear significance and etiology at this time * Monitor for now. VTE prophylaxis with SCDs. Discharge to [place] Discussed w patient's at bedside.
--- NOTE | 2024-07-24 10:56 | PN.RENAL_ITS ---
Subjective Subjective Follow-up on acute kidney injury, renal replacement therapy dependent. She had hemodialysis session yesterday, reports being uneventful. Has right IJ tunneled hemodialysis catheter. Reports no shortness of breath, PND, orthopnea. Appetite is poor Objective Data Objective Data Vital Signs: Vital Signs Temp Pulse Resp BP Pulse Ox O2 Del Method 97.8 F 97 18 128/74 H 96 Room Air 07/24/24 09:10 07/24/24 09:16 07/24/24 09:10 07/24/24 09:10 07/24/24 09:10 07/24/24 09:31 Oxygen Delivery Method Room Air Weight: 88.8 kg Body Mass Index (BMI) 34.7 Intake & Output: Intake and Output for Last 24 Hours 07/22/24 07/23/24 07/24/24 23:59 23:59 23:59 Intake Total 1308.75 / 1308.75 51 / 51 240 / 240 Output Total 0 / 0 1650 / 1650 0 / 0 Balance 1308.75 / 1308.75 -1599 / -1599 240 / 240 Lab / Micro Data Attestation: I reviewed the patient's lab results. 07/24/24 04:50 07/23/24 05:42 Labs: Laboratory Results - last 24 hr 07/23/24 08:45: Blood Type O POSITIVE, Antibody Screen NEGATIVE, Crossmatch See Detail 07/23/24 12:00: POC Glucose 82 07/23/24 16:47: POC Glucose 152 H 07/23/24 21:43: POC Glucose 112 H 07/24/24 04:50: WBC 11.9 H, RBC 2.77 L, Hgb 8.1 L, Hct 25.8 L, MCV 93.1, MCH 29.2, MCHC 31.4 L, RDW Std Deviation 50.8 H, RDW Coeff of Rolly 14.8 H, Plt Count 295, MPV 8.7, Immature Gran % (Auto) 3.000 H, Neut % (Auto) 66.6, Lymph % (Auto) 13.9 L, [place] % (Auto) 14.6 H, Eos % (Auto) 1.6, Baso % (Auto) 0.3, Absolute Neuts (auto) 7.9 H, Absolute Lymphs (auto) 1.65, Nucleated RBC % 0, Differential Comment SCANNED, Diff Path Review March foll 07/24/24 06:28: POC Glucose 101 Micro: Microbiology 07/21/24 15:36 Blood Culture (Wb) - Anticubital Left Blood Culture - Final Staphylococcus epidermidis 07/21/24 22:52 Wound - Leg, Right Gram Stain - Final 07/21/24 22:52 Wound - Leg, Right Wound Culture - Preliminary Pseudomonas aeruginosa Staphylococcus aureus 07/21/24 15:43 Urine, Catheterized Urine Culture - Final Presumptive E. coli 07/22/24 10:43 Stool Stool Occult Blood (NEDA) - Final Radiography Diagnostic Testing: Radiology Impression Echocardiogram 07/21/24 19:59 Interpretation Summary The left ventricular ejection fraction is 55 %. Unable to assess diastolic dysfunction due to arrhythmia. Ordering Physician: Maile Suarez Referring Physician: KATHLEEN ALVAREZ Performed By: Saige Fuentes RDCS Physical Exam Const alert General Appearance: frail Orientation / Consciousness: oriented to person and oriented to place HEENT normocephalic Head and Scalp: atraumatic Resp no use of accessory muscles Cardio Rhythm: abnormal rhythm irregularly irregular GI non-tender and non-distended Palpation: soft Assessment & Plan Assessment/Plan (1) Acute kidney injury: PLAN: She is currently requiring renal replacement therapy and unfortunately she continues to make very little urine and her creatinine goes up significantly in between sessions. She also hyponatremic at that is due to acute kidney injury Plan next dialysis session tomorrow
[2024-07-24 11:42] LABS: Osmolality, Urine 260 mOsm/KG; Urea Nitrogen, Urine 288 mg/dL (NO RANGE EST.); Urine Sodium 18 mmol/L (Not Establ.)
[2024-07-24] MEDS: 0.9% Saline Lock 10 ML Syringe IV (11:50)
[2024-07-24 12:11] LABS: Bedside Glucose 130 mg/dL (74-106)
--- NOTE | 2024-07-24 12:20 | CASEMGMT ---
Discharge Planning [facility] has obtained auth. Aleyda Loja DC Planning Asst.
[2024-07-24 12:23] LABS: Urine Chloride < 10 mmol/L (Not Establ.)
[2024-07-24] MEDS: Ferrous Sulfate 325 MG Tablet PO (12:27)
--- NOTE | 2024-07-24 13:32 | PCM.TXEXTCAR ---
Diet Diet Order/Speech Therapy: 07/22/24 15:24 Diet: Renal - ConsCHO - James Cont Food consistency:: Regular Liquid Consistency:: Regular/Thin Dietary Modifications:: Sodium Restricted Potassium Restricted Phosphorus Restricted Fluid restriction:: 1500 mL How many daily calories?: 1800 calorie Routine Orders/Code Status Routine Lab Work: CBC Code Status: Full Code Wound(s) rt posterior thigh: Wound Type: healing wound Dressing Change: foam dressing Therapies Weight Bearing: Full weight bearing Physical Therapy: Eval and Treat Occupational Therapy: Eval and Treat Problem/Diagnosis (1) Acute hyponatremia: Status: Acute Code(s): E87.1 - Hypo-osmolality and hyponatremia (2) Acute kidney injury: Status: Acute Code(s): N17.9 - Acute kidney failure, unspecified (3) Atrial fibrillation with rapid ventricular response: Status: Acute Code(s): I48.91 - Unspecified atrial fibrillation (4) Acute UTI: Status: Acute Code(s): N39.0 - Urinary tract infection, site not specified Plan A-fib with RVR apixaban held Had received a diltiazem bolus as well as a drip was turned off. Currently on metoprolol tartrate. UTI E. coli resistant to ampicillin, cefazolin, Cipro, Levaquin. Currently on ceftriaxone. Discharge with nitrofurantoin Right thigh wound polymicrobial w Pseudomonas Discharge with levofloxacin End-stage renal disease Nephrology on consult. Patient ongoing with hemodialysis. Anemia Hemoccult negative. Hemoglobin has dropped from 9.8 on AC down to 6.7 today. Iron is low at 16 with ferritin high to 1100. Patient transfuse 1 unit of packed blood cells. Hemoglobin improved to 8.1. Apixaban held. May be more anemia with chronic disease. Start every other day dosing of ferrous sulfate Hyponatremia Unclear significance and etiology at this time Monitor for now. VTE prophylaxis with SCDs. Discharge to [place] Discussed w patient's at bedside. Allergies/Procedures Done in Hospital Allergies propoxyphene (From Darvon) Allergy (Mild, Verified 07/21/24 13:32) PT UNABLE TO RESPOND-NEEDS F/U haloperidol (From Haldol) Allergy (Verified 07/21/24 13:32) PT UNABLE TO RESPOND-NEEDS F/U Penicillins Allergy (Verified 07/21/24 13:32) PT UNABLE TO RESPOND-NEEDS F/U Procedures: Dialysis Type of Care/Length of Stay Estimated LOS: Convalescent Care Less Than 30 days Type of Care Needed: Skilled Rehab Potential: Fair Prognosis: Fair Additional Orders/Day of Discharge Day of Discharge: 07/24/24 Dietary and Speech Recommendations Dietitian Recommendations/Changes: Will adjust diet to 1800 calorie/consistent carbohydrate; Renal. Will d/c glucerna shake w/ medpass. Will add PO Nepro as needed if PO fails at meals. DM/Renal diet education as needed. Discharge Plan Admission Admit Date/Time: 07/21/24 18:25 Primary Reason for Your Visit: UTI. leg wound Attending Provider: Michele Claros Primary Care Provider: Mari Atwood NP Consulting Providers: Yarely Graham; Maile Suarez; Medina Hebert Instructions Additional Instructions / Restrictions: hemodialysis every Sunday, Sunday, Sunday. Discharge Orders/Prescriptions Prescriptions: New sennosides-docusate sodium [Stimulant Laxative Plus] 8.6-50 mg Tablet 2 tab PO BID PRN PRN (Reason: Constipation) Qty: 0 0RF ferrous sulfate [FeroSul] 325 mg (65 mg iron) Tablet 325 mg PO Q48@1200 Qty: 0 0RF insulin lispro [Humalog KwikPen Insulin] 100 unit/mL Insulin Pen See Protocol subcut ACHS Qty: 0 0RF Protocol: 3. Sliding Scale Insulin Med Dosing Condition: 150-189 mg/dl = 1 unit Condition: 190-229 mg/dl = 2 units Condition: 230-269 mg/dl = 3 units Condition: 270-309 mg/dl = 4 units Condition: 310-349 mg/dl = 5 units Condition: 350-399 mg/dl = 6 units Condition: 400-449 mg/dl = 7 units Condition: Greater than 449 call physician Protocol Text: Suggested for: - Patients on Total Daily Insulin Dose of 37-55 units - Obese, infected, or steroid patients MEDIUM DOSING ALGORITHIM insulin glargine-yfgn 100 unit/mL (3 mL) Insulin Pen 10 unit subcut QPM Qty: 0 0RF ertapenem 1 gram recon soln 0.5 g IV .3 x week Qty: 3 0RF Rx Instructions: after hemodialysis x3. Continued acetaminophen 325 mg tablet 325 mg PO Q4H PRN (Reason: fever or pain) furosemide 40 mg tablet 40 mg PO .COMPLEX Rx Instructions: 40 mg orally TWO TIMES A DAY EVERY SUNDAY, SUNDAY, SUNDAY, SUNDAY; hydrocortisone [Ala-Marlo] 1 % cream 1 applic topical DAILY metoprolol tartrate 100 mg tablet 100 mg PO .COMPLEX Rx Instructions: 100 mg orally IN THE MORNING EVERY SUNDAY, SUNDAY, SUNDAY, SUNDAY,; metoprolol tartrate [Lopressor] 100 mg tablet 100 mg PO QHS Clover-Boaz Rx 1-60-300 mg-mg-mcg tablet 1 tab PO DAILY Held apixaban 5 mg tablet 5 mg PO BID Hold Instructions: Resume on 07/26/24. Discontinued insulin lispro [Humalog KwikPen Insulin] 100 unit/mL insulin pen See Protocol subcut DAILY Protocol: 6. Sliding Scale Insulin Custom Condition: mg/dl range Dose/Route: Number of Units Protocol Text: Custom Sliding Scale insulin glargine [Lantus Solostar U-100 Insulin] 100 unit/mL (3 mL) insulin pen 22 unit subcut QPM oxycodone 5 mg tablet 5 mg PO Q6H PRN (Reason: pain) Patient Comments: FOR 14 DAYS 07/17-07/31 potassium chloride [Klor-Con M10] 10 mEq tablet,ER particles/crystals 10 meq PO .COMPLEX Rx Instructions: 10 mEq orally EVERY MORNING TUE, SAT, SUN; No Action chlorpromazine 50 mg tablet 50 mg PO BID Referrals / Follow Up: Mari Atwood NP, UPPER TRIMMER-C [Primary Care Provider] - Within 2 Weeks Disposition Disposition (needs filled in before D/C Order can be placed): [facility]
--- NOTE | 2024-07-24 13:51 | DS.PCM_ITS ---
Providers Date of Admission: 07/21/24 Primary Care Physician: DELMY Dowd Consultations 07/21/24 19:59 Consult: Nephrology Routine Consulting Provider: Yarely Graham Reason for Consult: esrd on hd EMERGENT Consult: No MD Notified: Yes Date Notified: 07/21/24 Time Notified: 22:45 Method of Notification: Answering Service 07/21/24 22:51 Consult: Onc/Wound/caustic purification operator Routine Comment: Reason for Consult:: rt posterior thigh wound Reason For Visit: AMS, AFIB RVR Diagnosis Discharge Diagnosis (1) Acute hyponatremia: Status: Acute Code(s): E87.1 - Hypo-osmolality and hyponatremia (2) Acute kidney injury: Status: Acute Code(s): N17.9 - Acute kidney failure, unspecified (3) Atrial fibrillation with rapid ventricular response: Status: Acute Code(s): I48.91 - Unspecified atrial fibrillation (4) Acute UTI: Status: Acute Code(s): N39.0 - Urinary tract infection, site not specified Plan A-fib with RVR * apixaban held * Had received a diltiazem bolus as well as a drip was turned off. Currently on metoprolol tartrate. UTI * E. coli resistant to ampicillin, cefazolin, Cipro, Levaquin. * Currently on ceftriaxone. Discharge ertapenem after dialysis x3 Right thigh wound * polymicrobial w Pseudomonas * Discharge with ertapenem after dialysis x 3. End-stage renal disease * Nephrology on consult. Patient ongoing with hemodialysis. Anemia * Hemoccult negative. Hemoglobin has dropped from 9.8 on AC down to 6.7 today. Iron is low at 16 with ferritin high to 1100. * Patient transfuse 1 unit of packed blood cells. Hemoglobin improved to 8.1. * Apixaban held. * May be more anemia with chronic disease. * Start every other day dosing of ferrous sulfate Hyponatremia * Unclear significance and etiology at this time * Monitor for now. VTE prophylaxis with SCDs. Discharge to [place] Discussed w patient's at bedside. Medications at Discharge Home Medications acetaminophen 325 mg tablet 325 mg PO Q4H PRN fever or pain 07/21/24 apixaban 5 mg tablet 5 mg PO BID 07/21/24 chlorpromazine 50 mg tablet 50 mg PO BID 07/21/24 furosemide 40 mg tablet 40 mg PO .COMPLEX EDEMA 07/21/24 hydrocortisone 1 % topical cream (Ala-Marlo) 1 applic topical DAILY HEMORROIDS 07/21/24 metoprolol tartrate 100 mg tablet 100 mg PO .COMPLEX 07/21/24 metoprolol tartrate 100 mg tablet (Lopressor) 100 mg PO QHS HTN 07/21/24 vitamin B comp no.3-folic acid 1 mg-vit C 60 mg-biotin 300 mcg tablet (Clover-Boaz Rx) 1 tab PO DAILY 07/21/24 ertapenem 1 gram solution for injection 0.5 g IV .3 x week #3 ea 07/24/24 ferrous sulfate 325 mg (65 mg iron) tablet (FeroSul) 325 mg PO Q48@1200 #0 tabs 07/24/24 insulin glargine-yfgn 100 unit/mL (3 mL) subcutaneous pen 10 unit (0.1 mL) subcut QPM #0 mL 07/24/24 insulin lispro 100 unit/mL subcutaneous pen (Humalog KwikPen (U-100) Insulin) See Protocol subcut ACHS #0 mL 07/24/24 sennosides 8.6 mg-docusate sodium 50 mg tablet (Stimulant Laxative Plus) 2 tab PO BID PRN PRN Constipation #0 tabs 07/24/24 Hospital Course Operations None Procedures Dialysis Summary of Care Provided Minutes Spent on Discharge: 36 Weight / BMI Weight Weight: 88.8 kg Body Mass Index (BMI) 34.7 ABG / Lab / Microbiology Data 07/24/24 04:50 07/23/24 05:42 Laboratory: Laboratory Results - last 24 hr 07/23/24 08:45: Blood Type O POSITIVE, Antibody Screen NEGATIVE, Crossmatch See Detail 07/23/24 16:47: POC Glucose 152 H 07/23/24 21:43: POC Glucose 112 H 07/24/24 04:50: WBC 11.9 H, RBC 2.77 L, Hgb 8.1 L, Hct 25.8 L, MCV 93.1, MCH 29.2, MCHC 31.4 L, RDW Std Deviation 50.8 H, RDW Coeff of Rolly 14.8 H, Plt Count 295, MPV 8.7, Immature Gran % (Auto) 3.000 H, Neut % (Auto) 66.6, Lymph % (Auto) 13.9 L, [place] % (Auto) 14.6 H, Eos % (Auto) 1.6, Baso % (Auto) 0.3, Absolute Neuts (auto) 7.9 H, Absolute Lymphs (auto) 1.65, Nucleated RBC % 0, Differential Comment SCANNED, Diff Path Review March07/24/24 06:28: POC Glucose 101 07/24/24 11:00: Urine Osmolality 260, Ur Random Sodium 18, Urine Potassium 38.0, Urine Chloride < 10, Urine Urea Nitrogen 288 07/24/24 11:48: POC Glucose 130 H Microbiology: Microbiology 07/21/24 22:52 Wound - Leg, Right Gram Stain - Final 07/21/24 22:52 Wound - Leg, Right Wound Culture - Preliminary Pseudomonas aeruginosa Staphylococcus aureus Gram positive sarthak Gram Positive Cocci 07/21/24 15:36 Blood Culture (Wb) - Anticubital Left Blood Culture - Final Staphylococcus epidermidis 07/21/24 15:43 Urine, Catheterized Urine Culture - Final Presumptive E. coli 07/22/24 10:43 Stool Stool Occult Blood (NEDA) - Final D/C Instructions Discharge Diet: Renal Diet Meaningful Use Info Meaningful Use Meaningful Use Diagnoses (Choose all that apply): None applicable Ischemic Stroke Statin Dosing Therapy Reference: STATIN DOSE THERAPY REFERENCE: * Patients > 75 years receive moderate or high dose statin therapy. * Patients 75 years or YOUNGER should receive HIGH intensity statin dose unless contraindicated. You will be required to document reason for non-treatment if statin daily dose does not meet guidelines. HIGH DOSE STATIN THERAPY DAILY Atorvastatin > than or = to 40 mg Rosuvastatin > than or = to 20 mg Amlodipine + Atorvastatin > than or = to 2.5/40 mg Ezetimibe + Simvastatin 10/80 mg Simvastatin 80mg Discharge Plan Admission Admit Date/Time: 07/21/24 18:25 Primary Reason for Your Visit: UTI. leg wound Attending Provider: Michele Claros Primary Care Provider: Mari Atwood NP Consulting Providers: Yarely Graham; Maile Suarez; Medina Hebert Instructions Additional Instructions / Restrictions: hemodialysis every Sunday, Sunday, Sunday. Discharge Orders/Prescriptions Prescriptions: New sennosides-docusate sodium [Stimulant Laxative Plus] 8.6-50 mg Tablet 2 tab PO BID PRN PRN (Reason: Constipation) Qty: 0 0RF ferrous sulfate [FeroSul] 325 mg (65 mg iron) Tablet 325 mg PO Q48@1200 Qty: 0 0RF insulin lispro [Humalog KwikPen Insulin] 100 unit/mL Insulin Pen See Protocol subcut ACHS Qty: 0 0RF Protocol: 3. Sliding Scale Insulin Med Dosing Condition: 150-189 mg/dl = 1 unit Condition: 190-229 mg/dl = 2 units Condition: 230-269 mg/dl = 3 units Condition: 270-309 mg/dl = 4 units Condition: 310-349 mg/dl = 5 units Condition: 350-399 mg/dl = 6 units Condition: 400-449 mg/dl = 7 units Condition: Greater than 449 call physician Protocol Text: Suggested for: - Patients on Total Daily Insulin Dose of 37-55 units - Obese, infected, or steroid patients MEDIUM DOSING ALGORITHIM insulin glargine-yfgn 100 unit/mL (3 mL) Insulin Pen 10 unit subcut QPM Qty: 0 0RF ertapenem 1 gram recon soln 0.5 g IV .3 x week Qty: 3 0RF Rx Instructions: after hemodialysis x3. Continued acetaminophen 325 mg tablet 325 mg PO Q4H PRN (Reason: fever or pain) furosemide 40 mg tablet 40 mg PO .COMPLEX Rx Instructions: 40 mg orally TWO TIMES A DAY EVERY SUNDAY, SUNDAY, SUNDAY, SUNDAY; hydrocortisone [Ala-Marlo] 1 % cream 1 applic topical DAILY metoprolol tartrate 100 mg tablet 100 mg PO .COMPLEX Rx Instructions: 100 mg orally IN THE MORNING EVERY SUNDAY, SUNDAY, SUNDAY, SUNDAY,; metoprolol tartrate [Lopressor] 100 mg tablet 100 mg PO QHS Clover-Boaz Rx 1-60-300 mg-mg-mcg tablet 1 tab PO DAILY Held apixaban 5 mg tablet 5 mg PO BID Hold Instructions: Resume on 07/26/24. Discontinued insulin lispro [Humalog KwikPen Insulin] 100 unit/mL insulin pen See Protocol subcut DAILY Protocol: 6. Sliding Scale Insulin Custom Condition: mg/dl range Dose/Route: Number of Units Protocol Text: Custom Sliding Scale insulin glargine [Lantus Solostar U-100 Insulin] 100 unit/mL (3 mL) insulin pen 22 unit subcut QPM oxycodone 5 mg tablet 5 mg PO Q6H PRN (Reason: pain) Patient Comments: FOR 14 DAYS 07/17-07/31 potassium chloride [Klor-Con M10] 10 mEq tablet,ER particles/crystals 10 meq PO .COMPLEX Rx Instructions: 10 mEq orally EVERY MORNING TUE, SAT, SUN; No Action chlorpromazine 50 mg tablet 50 mg PO BID Referrals / Follow Up: Mari Atwood HOP SEPARATOR, HOP SEPARATOR-C [Primary Care Provider] - Within 2 Weeks Disposition Disposition (needs filled in before D/C Order can be placed): [facility] Charges/Coding Visit Charges Inpatient E&M: 94181 Disch Hosp >30min
--- NOTE | 2024-07-24 14:04 | CASEMGMT ---
Patient is ready for discharge to [place]. Physicians will transport patient via cot. Plan: d/c to [place] under skilled level of care. Diane HSU
--- NOTE | 2024-07-24 14:26 | CASEMGMT ---
Discharge Planning Discharge orders, signed med list, and transport time sent to [facility] via [facility]. Cot transport was scheduled with [facility] for 4p. Nursing, SW, and patients updated. Aleyda Loja DC Planning Asst.
[2024-07-24 14:35] LABS: Pathologist Review Reviewed
--- NOTE | 2024-07-24 15:17 | PHA.DC_ITS ---
Pharmacy [place] Med Reconciliation Pharmacy Service has performed discharge medication reconciliation for this patient upon transfer to [facility]. The patient's discharge medication list was reviewed for discrepancies and discrepancies were resolved. Medications at Discharge Home Medications acetaminophen 325 mg tablet 325 mg PO Q4H PRN fever or pain 07/21/24 apixaban 5 mg tablet 5 mg PO BID 07/21/24 chlorpromazine 50 mg tablet 50 mg PO BID 07/21/24 furosemide 40 mg tablet 40 mg PO .COMPLEX EDEMA 07/21/24 hydrocortisone 1 % topical cream (Ala-Marlo) 1 applic topical DAILY HEMORROIDS 07/21/24 metoprolol tartrate 100 mg tablet 100 mg PO .COMPLEX 07/21/24 metoprolol tartrate 100 mg tablet (Lopressor) 100 mg PO QHS HTN 07/21/24 vitamin B comp no.3-folic acid 1 mg-vit C 60 mg-biotin 300 mcg tablet (Clover-Boaz Rx) 1 tab PO DAILY 07/21/24 ertapenem 1 gram solution for injection 0.5 g IV .3 x week #3 ea 07/24/24 ferrous sulfate 325 mg (65 mg iron) tablet (FeroSul) 325 mg PO Q48@1200 #0 tabs 07/24/24 insulin glargine-yfgn 100 unit/mL (3 mL) subcutaneous pen 10 unit (0.1 mL) subcut QPM #0 mL 07/24/24 insulin lispro 100 unit/mL subcutaneous pen (Humalog KwikPen (U-100) Insulin) See Protocol subcut ACHS #0 mL 07/24/24 sennosides 8.6 mg-docusate sodium 50 mg tablet (Stimulant Laxative Plus) 2 tab PO BID PRN PRN Constipation #0 tabs 07/24/24
[2024-07-24 15:21] VITALS: BP 125/96; PULSE 106; RESP 18; TEMP 36.6; O2SAT 96
--- NOTE | 2024-07-24 16:04 | NURSING ---
Report called to [facility].
== END 2024-07-24 16:17 | disposition skilled nursing facility (03) | DRG 308 ==
LOC: ED 18:31 → PCU 19:48
PROVIDERS: Nurse Practitioner Adult Health; Student in an Organized Health Care Education/Training Program; Admitting Provider Internal Medicine; Emergency Provider Emergency Medicine; PCP Nurse Practitioner Family
DX: I48.0 Paroxysmal atrial fibrillation (principal); N18.6 End stage renal disease; G93.41 Metabolic encephalopathy; I12.0 Hypertensive chronic kidney disease with stage 5 chronic kidney disease or end stage renal disease; E87.1 Hypo-osmolality and hyponatremia; N39.0 Urinary tract infection, site not specified; Z16.24 Resistance to multiple antibiotics; D63.1 Anemia in chronic kidney disease; E11.22 Type 2 diabetes mellitus with diabetic chronic kidney disease; F20.9 Schizophrenia, unspecified; E11.65 Type 2 diabetes mellitus with hyperglycemia; Z79.4 Long term (current) use of insulin; Z99.2 Dependence on renal dialysis; B96.20 Unspecified Escherichia coli [E. coli] as the cause of diseases classified elsewhere; Z79.01 Long term (current) use of anticoagulants; Z79.899 Other long term (current) drug therapy; Z86.718 Personal history of other venous thrombosis and embolism
CPT/HCPCS: 36415; 70450; 70496; 70498; 71045; 80048; 80053; 80061; 81001; 82274; 82436; 82728; 82962; 83036; 83540; 83550; 83605; 83735; 83930; 83935; 84100; 84133; 84300; 84443; 84484; 84540; 85025; 85027; 85610; 85730; 86850; 86900; 86901; 86920; 86922; 87040; 87070; 87077; 87086; 87088; 87184; 87186; 87205; 90937; 93005; 93306; 97162; 97166; 97530; 97535; 97802; 99285; J7030; J7040; J7050; P9016; P9612; Q9967; A4216; G0257

== ENCOUNTER 2024-07-29 11:36 | Inpatient (IN) | payer MEDICARE, SELFPAY ==
[2024-07-29] VITALS (26 sets, daily range): BP systolic 98–160; BP diastolic 62–136; PULSE 98–148; RESP 20–31; TEMP 36.3–39.3; O2SAT 93–100; BMI 41.1; BMI 38.7
--- NOTE | 2024-07-29 11:45 | EKG12_ITS ---
Test Reason : Blood Pressure : / mmHG Vent. Rate : 157 BPM Atrial Rate : 000 BPM P-R Int : 000 ms QRS Dur : 080 ms QT Int : 284 ms P-R-T Axes : 000 260 116 degrees QTc Int : 459 ms Critical Test Result: High HR Atrial fibrillation with rapid ventricular response Right superior axis deviation Nonspecific ST and T wave abnormality Abnormal ECG Confirmed by REAL GALLEGO, HANSA ([id number]), electronic news gathering editor LAVONNE HACKETT ([id number]) on 07/31/2024 1:40:08 PM Referred By: Confirmed By:HANSA NOBLE MD
--- NOTE | 2024-07-29 11:48 | EDS_ITS ---
HPI History of Present Illness Chief Complaint: Palpitations Informant: EMS and SNF Narrative Narrative: Patient is a 69-year-old female with history of atrial fibrillation, schizophrenia, end-stage renal disease on hemodialysis, hyponatremia, diabetes mellitus presenting from a nursing facility for altered mental status and fever. Patient is also been tachycardic. Patient was recently diagnosed with a urinary tract infection and was supposed to start ertapenem. Apparently the PICC line was unsuccessful and she has not started the antibiotics. Chart review shows that patient was admitted on 07/21 and discharged on 07/24 for encephalopathy, A-fib with RVR and urinary tract infection. Was supposed to receive ertapenem after dialysis for 3 doses. Also has a right thigh wound that was positive for Pseudomonas. Patient is somnolent does not answer questions when asked. [facility] Medical History Acute kidney injury superimposed on chronic kidney disease Home Medications ?Medication ?Instructions ?Recorded ?Last Taken ?Type acetaminophen 325 mg tablet 325 mg PO Q4H PRN fever or pain 07/21/24 Unknown History apixaban 5 mg tablet 5 mg PO BID 07/21/24 Unknown History chlorpromazine 50 mg tablet 50 mg PO BID 07/21/24 Unknown History furosemide 40 mg tablet 40 mg PO .COMPLEX EDEMA 07/21/24 Unknown History hydrocortisone 1 % topical cream 1 applic topical DAILY HEMORROIDS 07/21/24 Unknown History (Ala-Marlo) metoprolol tartrate 100 mg tablet 100 mg PO QHS 07/21/24 Unknown History vitamin B comp no.3-folic acid 1 1 tab PO DAILY 07/21/24 Unknown History mg-vit C 60 mg-biotin 300 mcg tablet ([facility]) insulin glargine-yfgn 100 unit/mL 10 unit (0.1 mL) subcut QPM #0 mL 07/24/24 Unknown Rx (3 mL) subcutaneous pen ertapenem 1 gram solution for 0.5 g IV MOWEFR 07/29/24 Unknown History injection ferrous sulfate 325 mg (65 mg 325 mg PO DAILY 07/29/24 Unknown History iron) tablet (FeroSul) insulin lispro 100 unit/mL 1 sliding scale dose subcut ACHS 07/29/24 Unknown History subcutaneous pen (Humalog KwikPen (U-100) Insulin) sennosides 8.6 mg-docusate sodium 2 tab PO BID PRN Constipation 07/29/24 Unknown History 50 mg tablet (Stimulant Laxative Plus) thioridazine 50 mg tablet 50 mg PO BID 07/29/24 Unknown History Allergy/AdvReac Type Severity Reaction Status Date / Time propoxyphene (From Darvon) Allergy Mild PT UNABLE Verified 07/29/24 11:38 TO RESPOND-NEEDS F/U haloperidol (From Haldol) Allergy PT UNABLE Verified 07/29/24 11:38 TO RESPOND-NEEDS F/U Penicillins Allergy PT UNABLE Verified 07/29/24 11:38 TO RESPOND-NEEDS F/U Family History unable to obtain Social History Smoking Status: Never smoker ROS ROS ED Review of Systems ROS Unobtainable: due to encephalopathy Constitutional Constitutional ED: Reports fever(s) EXAM Physical Exam Const Vital Signs: 07/29/24 11:38 07/29/24 11:44 07/29/24 11:45 Temperature 101.2 F H 101.2 F H Temperature Source Oral Temporal Pulse Rate 148 H 136 H Respiratory Rate 31 H 31 H Respiratory Effort Blood Pressure 160/136 H 160/136 H Blood Pressure Mean 144 144 Blood Pressure Source Blood Pressure Position Blood Pressure Location Pulse Ox 95 95 97 Oxygen Delivery Method Room Air Room Air Room Air 07/29/24 11:47 07/29/24 11:52 07/29/24 12:32 Temperature 102.8 F H Temperature Source Rectal Pulse Rate 143 H Respiratory Rate 31 H Respiratory Effort Short of Breath Blood Pressure 137/88 H Blood Pressure Mean 104 Blood Pressure Source Blood Pressure Position Blood Pressure Location Pulse Ox 95 Oxygen Delivery Method Room Air 07/29/24 12:44 07/29/24 14:00 07/29/24 14:41 Temperature 98.5 F 99.3 F H 99.3 F H Temperature Source Oral Oral Oral Pulse Rate 140 H 129 H 137 H Respiratory Rate 30 H 23 H 26 H Respiratory Effort Blood Pressure 132/82 H 121/84 H 125/82 H Blood Pressure Mean 98 96 96 Blood Pressure Source Monitor Blood Pressure Position Semi-Fowlers Blood Pressure Location Left Arm Pulse Ox 98 96 97 Oxygen Delivery Method Room Air Room Air Room Air 07/29/24 15:00 Temperature 98.4 F Temperature Source Pulse Rate 122 H Respiratory Rate 20 H Respiratory Effort Blood Pressure 120/76 Blood Pressure Mean 90 Blood Pressure Source Blood Pressure Position Blood Pressure Location Pulse Ox 98 Oxygen Delivery Method Positive well nourished and well developed Constitutional Narrative: Acute distress, somnolent General Appearance ED: well developed and pallor HEENT Reports moist mucous membranes Neck supple and no JVD Neck Narrative: No meningeal signs Chest Wall inspection of chest normal Resp Resp Narrative: Tachypneic, clear breath sounds throughout, no rhonchi or crackles appreciated, no wheezing Cardio Rate: tachycardic Rhythm: abnormal rhythm irregularly irregular GI normal to inspection, nondistended, normoactive bowel sounds and non-tender Extremity General Extremety ED: Yes edema General Extremity: edema Neuro Neuro Narrative: Initially patient is somnolent, diffusely weak. No focal neurologic deficits appreciated. Intermittently responds to painful stimuli. Psych mental status grossly normal Skin Skin Narrative: Approximately 1 cm ulcerated wound to the posterior right thigh just below the gluteal fold General Skin Exam: pallor MDM MDM MDM Narrative Medical decision making narrative: Patient presents the emergency room with abnormal vital signs. Upon arrival patient is tachycardic, febrile and quite somnolent. Differential includes severe sepsis, COVID-19 infection, uremia, encephalopathy, atrial fibrillation with RVR, pneumonia, urinary tract infection. As patient is febrile we will treat her fever first for and perform septic workup before giving rate control medication in case her tachycardia is compensatory. Patient is given rectal Tylenol. With improvement of her fever her mentation also improved. Patient is now acting appropriate and oriented. She is still generally weak though. Patient does have a leukocytosis is worsening with white blood cell count 18.5. Her son at the bedside tells me that patient was discharged home with a prescription for meropenem that was post be performed with dialysis however this was not performed for some reason and the prison try to get a PICC line so they can give her dialysis but the PICC line was unsuccessful. With this information it appears that patient has had untreated urinary tract infection for at least 4 days. In addition patient is found to have a positive COVID-19 test. Her lactic acid is elevated. Patient is given 500 cc bolus of fluid because of her and stage renal disease and concern for volume overload. Patient remains hemodynamically stable. She still tachycardic despite fever control so she is given 10 mg bolus of IV Cardizem and then put on a Cardizem drip. She tolerates this well. Patient started on IV meropenem which she previously was supposed to be on and will be admitted. Case is discussed with hospitalist, Dr. Hebert. History & Record Review Additional record(s) reviewed:: Prior labs (Wound culture on 07/21-Pseudomonas as well as MRSA. Urine culture on 07/21 E. coli) Lab Data Attestation: I reviewed the patient's lab results. Labs: Laboratory Results - last 24 hr 07/29/24 07/29/24 07/29/24 11:50 12:51 13:56 WBC 18.5 H RBC 3.59 L Hgb 10.4 L Hct 33.5 L MCV 93.3 MCH 29.0 MCHC 31.0 L RDW Std Deviation 50.0 H RDW Coeff of Rolly 14.6 Plt Count 361 MPV 9.0 Immature Gran % (Auto) 1.400 H Neut % (Auto) 81.5 H Lymph % (Auto) 9.3 L Barnes % (Auto) 6.8 Eos % (Auto) 0.6 Baso % (Auto) 0.4 Absolute Neuts (auto) 15.1 H Absolute Lymphs (auto) 1.72 Nucleated RBC % 0 PT 21.9 H INR 1.9 APTT 36.5 H Sodium 129 L Potassium 4.7 Chloride 97 L Carbon Dioxide 24.0 Anion Gap 8 BUN 24 H Creatinine 2.29 H Estim Creat Clear Calc 27.70 Est GFR (MDRD) Af Amer 27 L Est GFR (MDRD) Non-Af 23 L BUN/Creatinine Ratio 10.5 Glucose 198 H Lactic Acid 2.5 H* Calcium 9.3 Total Bilirubin 0.50 AST 23 ALT 21 Alkaline Phosphatase 127 H Total Protein 8.2 Albumin 1.9 L Globulin 6.3 H Albumin/Globulin Ratio 0.3 L Urine Color Yellow Urine Clarity Cloudy Urine pH 6.0 Ur Specific [place] 1.015 Urine Protein 100 H Urine Glucose (UA) Normal Urine Ketones Negative Urine Occult Blood 150 H Urine Nitrite Negative Urine Bilirubin Negative Urine Urobilinogen Normal Ur Leukocyte Esterase 500 H Urine RBC 0-5 SEEN Urine WBC 50-100 SEEN Ur Squamous Epith Cells 0-5 SEEN Urine Bacteria 0 SEEN Urine Mucus 0 SEEN Urine Yeast 2+ POC Glucose 217 H ABG Data ABG results: ABG 07/29/24 11:58 Specimen Type ART Sample Site R Brach pH 7.47 H Bicarbonate Actual 21.5 L Total CO2 22 Base Excess -2 O2 Saturation 96 ABG pCO2 29.3 L ABG pO2 75 Martin Test Positive O2 Delivery Device Room Air Vent Mode Not entered Radiography Chest X-Ray - ED: 1 View, Read by ED Physician, Read by Radiologist and No Acute Disease Diagnostic Testing: Clinical Impression(s) from Imaging Studies Chest X-Ray 07/29/24 12:25 IMPRESSION: No active disease. Electronically Signed: Atif Burgos MD at 13:03 EDT , Rhythm Strip Rhythm Strip: A-fib Rate: 157 Ectopy: None EKG Initial EKG: Attestation: I personally reviewed and interpreted this EKG as follows: Interpretation: Atrial Fibrillation Comments: Atrial fibrillation with rapid ventricular sponsor at a rate of 157 bpm Right superior axis deviation Nonspecific ST segments and T wave changes Differential Diagnosis Chest pain/SOB: pulmonary embolism Reason(s) PE less likely: Positive for not hypoxic and patient taking oral anticoagulants Management Discussion w/another healthcare provider: Hospitalist Discharge Plan Dx/Rx/DC Orders Clinical Impression: Acute UTI, Atrial fibrillation with rapid ventricular response, Encephalopathy, ESRD on hemodialysis, COVID Disposition Disposition: [facility] Discharge Date/Time: 07/29/24 16:24
[2024-07-29 12:01] LABS: Absolute Lymphocyte Count 1.72 X10^3/uL (0.83-4.51); Absolute Neutrophil Count 15.1 X10^3/uL (2.0-7.7); Basophil# 0.07 X10^3/uL; Basophil% 0.4 % (0-1); Eosinophil# 0.11 X10^3/uL; Eosinophils% 0.6 % (0-5); Hematocrit 33.5 % (37-47); Hemoglobin 10.4 g/dL (12.0-15.0); Lymphocyte # 1.72 X10^3/ul (0.83-4.51); Lymphocyte % 9.3 % (19-41); Mean Corpuscular Volume 93.3 fL (81-99); Monocyte# 1.25 X10^3/uL; Monocyte% 6.8 % (0-10); NRBC Flagged by Analyzer 0 % (0-5); Neutrophil # 15.07 X10^3/uL (2.7-7.7); Neutrophil % 81.5 % (47-70); Platelet Count 361 K/mm3 (150-450); RBC Distribution Width CV 14.6 % (11.6-14.6); Red Blood Count 3.59 M/mm3 (4.2-5.4); White Blood Count 18.5 K/mm3 (4.4-11.0)
[2024-07-29 12:01] LABS: Allen Test Positive; Base Excess -2 mmol/L (-2 to +2); Bicarbonate 21.5 mmol/L (22-26); Blood Gas Specimen Type ART; Mode Not entered; O2 Delivery Device Room Air; PO2 75 mmHG (75-100); SITE R Brach; SO2 96 % (95-99); Total Carbon Dioxide 22 mmol/L; pCO2 29.3 mmHg (35-45); pH 7.47 (7.35-7.45)
[2024-07-29] MEDS: 0.9% Normal Saline (500mL Bag) 500 ML 999 ML IV (12:07)
[2024-07-29] MEDS: Acetaminophen 650 MG Suppository RC (12:07)
[2024-07-29 12:12] LABS: International Normalized Ratio 1.9; Prothrombin Time (Protime)PT. 21.9 SECONDS (11.7-14.9)
[2024-07-29 12:13] LABS: Partial Thromboplast Time 36.5 Seconds (24.1-36.2)
--- NOTE | 2024-07-29 12:25 | RAD_ITS ---
STUDY: X-RAY CHEST REASON FOR EXAM: Female, 69 years old. AMS TECHNIQUE: Single AP portable view of the chest. COMPARISON: 07/21/2024 FINDINGS: Tunneled right internal jugular dialysis catheter which is unchanged. The lungs are clear and expanded. There is no demonstrated pleural abnormality. Normal size heart. Normal mediastinum and snow. Normal visualized pulmonary arteries. Normal visualized aortic arch and descending thoracic aorta. Normal visualized thoracic spine. Normal visualized ribs, clavicles, and shoulders. There is no demonstrated abnormality of the visualized soft tissue structures of the upper abdomen. RAD/Chest 1 View (Portable) IMPRESSION: No active disease. Electronically Signed: Atif Burgos MD at 13:03 EDT ,
[2024-07-29 12:40] LABS: Lactic Acid 2.5 mmol/L (0.4-1.9)
[2024-07-29 12:55] LABS: Bacteria 0 SEEN /hpf (None Seen); Mucous, Urine 0 SEEN /hpf (<or=2+)
[2024-07-29 13:02] LABS: ALB/GLOB Ratio 0.3 RATIO (0.9-2.4); AST(SGOT) 23 U/L (15-37); Alanine Aminotransfer ALT/SGPT 21 U/L (13-56); Albumin, Serum 1.9 g/dL (3.2-5.0); Alkaline Phosphatase 127 U/L (45-117); Anion Gap 8 (5-15); BUN 24 mg/dL (7-18); BUN/Creat Ratio 10.5 RATIO (10-20); Calcium,Total 9.3 mg/dL (8.5-10.1); Chloride 97 mmol/L (98-107); Creatinine, Serum 2.29 mg/dL (0.55-1.02); EST Glomerular Filtration Rate 23 mL/min (>60); Est Glom Filt Rate - Afr Amer 27 mL/min (>60); Globulin 6.3 g/dL (2.2-4.2); Glucose 198 mg/dL (74-106); Potassium 4.7 mmol/L (3.5-5.1); Protein, Total 8.2 g/dL (6.4-8.2); Sodium Level 129 mmol/L (136-145)
[2024-07-29 13:05] LABS: Color, Urine Yellow (Yellow); Glucose, Dipstick Normal (Normal); Ketone-Dipstick Negative (Negative); Leukocyte Esterase-Dipstick 500 /ul (Negative); Nitrite-Dipstick Negative (Negative); Occult Blood-Urine 150 /ul (Negative); Protein-Dipstick 100 mg/dl (Negative); Specific Gravity, Urine 1.015 (1.002-1.030); Urine Bilirubin Dipstick Negative (Negative); Urine Clarity Cloudy (Clear); Urine Urobilinogen Normal (Normal)
[2024-07-29 13:13] LABS: Red Blood Cells-Urine 0-5 SEEN /hpf (0-5); White Blood Cells 50-100 SEEN /hpf (0-5)
[2024-07-29 13:14] LABS: Yeast-Urine 2+ /hpf (None Seen)
[2024-07-29 13:15] LABS: Squamous Epithelial Cells - UA 0-5 SEEN /hpf (5-10)
[2024-07-29] MEDS: dilTIAZem 25 MG/5 ML Vial 10 MG IV BOLUS (13:23)
--- NOTE | 2024-07-29 13:55 | ED.RN ---
DR. JACKSON AWARE PT TRIGGERS SEPSIS ALERT, PT HAS DOCUMENTED INFECTION. NO NEW ORDERS AT THIS TIME.
[2024-07-29 14:17] LABS: Bedside Glucose 217 mg/dL (74-106)
--- NOTE | 2024-07-29 14:17 | HP.PCM.HOS_ITS ---
HPI - General General Date of Admission: 07/29/24 Date of Service: 07/29/24 Chief Complaint: palpitations HPI Narrative GLADIS VELOZ, is a 69 F with a PMH as outlined who presents via the ED on 07/29/2024 with a complaitn of palpitations. She was recently in the hospital and discharged on 08/25/2024 after being managed for afib with RVR and UTI. Urine culture grew E coli and she also had wound cultures on a small right lower extremity wound and cultures grew Pseudomonas and MRSA. She was discharged on ertapenem after dialysis x 3. Per her brother, she did not receive any ertapenem. Apparently [facility] tried to pass a PICC line to administer the ertapenem but they were unsuccessful. Subsequently started having fever and chills and palpitations. She was also going weak and lethargic so family decided to bring her into the ED. She denied any nausea or vomiting, burning with urination, chest pain or any other symptoms. Review of symptoms otherwise negative. Vitals in the ED were BP of 121/84, KS of 129, RR of 23 and temp was 99.3F. She was saturating at 96% on room air. CBC showed hb of 10.5, wbc of 18.5 and platelets of 361. INR was 1.9. CHemsitry showed sodium of 129, potassium of 4.7, bicarb of 24 and Cr of 2.29. Lactic acid was 2.5 and urinalysis showed no evidence of afib with RVR. Respiratory panel was positive for COVID. Chest x- ray showed no active cardiopulmonary pathology. She was restarted on the ertapenem in the ED and she has been admitted to be managed for A-fib with RVR as well as sepsis due to inadequately treated UTI. [facility] Medical History Acute kidney injury superimposed on chronic kidney disease Home Medications ?Medication ?Instructions ?Recorded ?Last Taken ?Type acetaminophen 325 mg tablet 325 mg PO Q4H PRN fever or pain 07/21/24 Unknown History apixaban 5 mg tablet 5 mg PO BID 07/21/24 Unknown History chlorpromazine 50 mg tablet 50 mg PO BID 07/21/24 Unknown History furosemide 40 mg tablet 40 mg PO .COMPLEX EDEMA 07/21/24 Unknown History hydrocortisone 1 % topical cream 1 applic topical DAILY HEMORROIDS 07/21/24 Unknown History (Ala-Marlo) metoprolol tartrate 100 mg tablet 100 mg PO QHS 07/21/24 Unknown History vitamin B comp no.3-folic acid 1 1 tab PO DAILY 07/21/24 Unknown History mg-vit C 60 mg-biotin 300 mcg tablet ([facility] Rx) insulin glargine-yfgn 100 unit/mL 10 unit (0.1 mL) subcut QPM #0 mL 07/24/24 Unknown Rx (3 mL) subcutaneous pen ertapenem 1 gram solution for 0.5 g IV MOWEFR 07/29/24 Unknown History injection ferrous sulfate 325 mg (65 mg 325 mg PO DAILY 07/29/24 Unknown History iron) tablet (FeroSul) insulin lispro 100 unit/mL 1 sliding scale dose subcut ACHS 07/29/24 Unknown History subcutaneous pen (Humalog KwikPen (U-100) Insulin) sennosides 8.6 mg-docusate sodium 2 tab PO BID PRN Constipation 07/29/24 Unknown History 50 mg tablet (Stimulant Laxative Plus) thioridazine 50 mg tablet 50 mg PO BID 07/29/24 Unknown History Allergy/AdvReac Type Severity Reaction Status Date / Time propoxyphene (From Darvon) Allergy Mild PT UNABLE Verified 07/29/24 11:38 TO RESPOND-NEEDS F/U haloperidol (From Haldol) Allergy PT UNABLE Verified 07/29/24 11:38 TO RESPOND-NEEDS F/U Penicillins Allergy PT UNABLE Verified 07/29/24 11:38 TO RESPOND-NEEDS F/U Family History unable to obtain Social History Smoking Status: Never smoker ROS Constitutional Constitutional: Reports chills, fatigue, fever(s), malaise and weakness; Denies anorexia Eyes Eyes: Denies change in vision ENT HEENT: Denies dysphagia or headache(s) Cardiovascular Cardiovascular: Reports palpitations and rapid heart rate; Denies chest pain, dyspnea on exertion, edema, lightheadedness, orthopnea, paroxysmal nocturnal dyspnea or syncope Respiratory/Chest Respiratory/Chest: Denies cough, dyspnea, productive cough, shortness of breath at rest or shortness of breath with exertion Gastrointestinal Gastrointestinal: Denies abdominal pain, constipation, diarrhea, nausea or vomiting Genitourinary Genitourinary: Reports burning urination; Denies difficulty urinating, dysuria, nocturia or urinary frequency Musculoskeletal Musculoskeletal: Denies arthralgias or back pain Neurologic Neurologic: Denies confusion, dizziness, focal weakness, headache(s), numbness, seizures or syncope Psychiatric Psychiatric: Denies anxiety or depression Vital Signs Vital Signs Vital Signs: 07/29/24 11:38 07/29/24 11:44 07/29/24 11:45 Temperature 101.2 F H 101.2 F H Temperature Source Oral Temporal Pulse Rate 148 H 136 H Respiratory Rate 31 H 31 H Respiratory Effort Blood Pressure 160/136 H 160/136 H Blood Pressure Mean 144 144 Pulse Ox 95 95 97 Oxygen Delivery Method Room Air Room Air Room Air 07/29/24 11:47 07/29/24 11:52 07/29/24 12:32 Temperature 102.8 F H Temperature Source Rectal Pulse Rate 143 H Respiratory Rate 31 H Respiratory Effort Short of Breath Blood Pressure 137/88 H Blood Pressure Mean 104 Pulse Ox 95 Oxygen Delivery Method Room Air 07/29/24 12:44 07/29/24 14:00 Temperature 98.5 F 99.3 F H Temperature Source Oral Oral Pulse Rate 140 H 129 H Respiratory Rate 30 H 23 H Respiratory Effort Blood Pressure 132/82 H 121/84 H Blood Pressure Mean 98 96 Pulse Ox 98 96 Oxygen Delivery Method Room Air Room Air Weight Weight: 232 lb 5.875 oz Body Mass Index (BMI) 41.1 Physical Exam Const alert, oriented x3 and no apparent distress Constitutional Narrative: Obese, frail General Appearance: cooperative HEENT normocephalic, head/scalp atraumatic and hearing grossly normal bilaterally HEENT Narrative: Dry oral mucosa Eyes PERRL and conjunctivae normal Neck no lymphadenopathy and supple Resp normal respiratory effort, no retractions, no use of accessory muscles and clear to auscultation bilaterally Cardio regular rate, regular rhythm, S1 normal heart sound, S2 normal heart sound and no murmurs GI normal to inspection, nondistended, normoactive bowel sounds, soft to palpation, non-tender and non-distended Extremity normal to inspection, full ROM and no clubbing, cyanosis or edema Skin Skin Narrative: very small, <1cm superficial ulceration over the back of her right thigh. No offensive discharge or erythema. Healing well. No erythema over the dialysis catheter site in the right upper chest Neuro oriented x3, CN's II-XII intact bilaterally, moves all extremities and no focal motor deficits Neuro Narrative: generalised weakness Sensorium / Orientation: awake and alert Psych affect normal Results Lab / Micro Data 07/29/24 11:50 07/29/24 11:50 Labs: Laboratory Results - last 24 hr 07/29/24 11:50: WBC 18.5 H, RBC 3.59 L, Hgb 10.4 L, Hct 33.5 L, MCV 93.3, MCH 29.0, MCHC 31.0 L, RDW Std Deviation 50.0 H, RDW Coeff of Rolly 14.6, Plt Count 361, MPV 9.0, Immature Gran % (Auto) 1.400 H, Neut % (Auto) 81.5 H, Lymph % (Auto) 9.3 L, Williams % (Auto) 6.8, Eos % (Auto) 0.6, Baso % (Auto) 0.4, Absolute Neuts (auto) 15.1 H, Absolute Lymphs (auto) 1.72, Nucleated RBC % 0, PT 21.9 H, INR 1.9, APTT 36.5 H, Sodium 129 L, Potassium 4.7, Chloride 97 L, Carbon Dioxide 24.0, Anion Gap 8, BUN 24 H, Creatinine 2.29 H, Estim Creat Clear Calc 27.70, E st GFR (MDRD) Af Amer 27 L, Est GFR (MDRD) Non-Af 23 L, BUN/Creatinine Ratio 10.5, Glucose 198 H, Lactic Acid 2.5 H*, Calcium 9.3, Total Bilirubin 0.50, AST 23, ALT 21, Alkaline Phosphatase 127 H, Total Protein 8.2, Albumin 1.9 L, G lobulin 6.3 H, Albumin/Globulin Ratio 0.3 L 07/29/24 12:51: Urine Color Yellow, Urine Clarity Cloudy, Urine pH 6.0, Ur Specific [place] 1.015, Urine Protein 100 H, Urine Glucose (UA) Normal, Urine Ketones Negative, Urine Occult Blood 150 H, Urine Nitrite Negative, Urine Bilirubin Negative, Urine Urobilinogen Normal, Ur Leukocyte Esterase 500 H, Urine RBC 0-5 SEEN, Urine WBC 50-100 SEEN, Ur Squamous Epith Cells 0-5 SEEN, Urine Bacteria 0 SEEN, Urine Mucus 0 SEEN, Urine Yeast 2+ Micro: Microbiology 07/29/24 12:00 Mucosa - Nose SARS-CoV-2, Influenza & RSV (PCR) - Final SARS-CoV-2 (COVID 19 PCR) ABG Data ABG results: ABG 07/29/24 11:58 Specimen Type ART Sample Site R Brach pH 7.47 H Bicarbonate Actual 21.5 L Total CO2 22 Base Excess -2 O2 Saturation 96 ABG pCO2 29.3 L ABG pO2 75 Martin Test Positive O2 Delivery Device Room Air Vent Mode Not entered Imaging Radiology Impression Chest X-Ray 07/29/24 12:25 IMPRESSION: No active disease. Electronically Signed: Atif Burgos MD at 13:03 EDT , Assessment & Plan Assessment/Plan (1) Acute UTI: (2) Atrial fibrillation with rapid ventricular response: (3) COVID: PLAN: Plan #Sepsis due to inadequately treated UTI and COVID * admit to PCU * patient admitted with a complaint of tachycardia and fever. Was recently in the hospital and managed for UTI. Urine cultures grew E coli. She was discharged on ertapenem with dialysis x 3. However it does not appear that she had yet had been in either dialysis or [facility]. It is unclear why. * Patient currently tachypneic and tachycardic, also febrile. She is on room air. WBC is elevated at 18.5. * Obtain blood cultures. COVID test is also positive. * Hold off on IV fluids due to her being ESRD patient. * Of note she did have wound cultures were also positive for MRSA and Pseudomonas and MRSA as well as strep. * Will start patient on IV vancomycin dosed with dialysis and Zosyn. * Get ID consult. As stated blood cultures obtained. Also started on IV Decadron due to COVID. * #A-fib with RVR: * Patient also had A-fib with RVR during the last admission. * Started on Cardizem drip. Patient on p.o. metoprolol at home. * On eliquis.Wean off of cardiem as tolerated to PO metoprolol. I think the afib with RVR is also aggravated by the sepsis due to UTI. #COVID-19 infection: * Patient currently on room air. * She is septic and this could also be attributed to the COVID though it does seem like it may be more due to her inadequately treated UTI and thigh wound. * Will hold off on remdesivir as she is on room air. * Start Decadron 6 mg daily IV. * Chest x-ray showed no acute cardiopulmonary pathology. * #ESRD on hemodialysis: Consult nephrology. On dialysis Wednesdays and Fridays. #Anemia: Required transfusion during previous admissions. Hb today is 10.4. Continue oral iron supplementation. #History of DVT and right lower extremity hematoma * This was during a recent admission at [facility]. Was offered Eliquis but now back on her Eliquis. * #Type 2 diabetes mellitus: On Lantus 10 units daily. Insulin sliding scale. Accu-Cheks ACHS. DVT prophylaxis: Already on Eliquis CODE STATUS: full code * Patient, and brother counseled extensively about different types of CODE STATUS including full code, DNR CCA and DNR CCA. Patient elects to be full code. * Total [id number] time 17 minutes. Charges/Coding Visit Charges Inpatient E&M: 16484 Init Hosp L3 Procedures Hospitalists Procedures: 47916 Advncd Care Plan 30 Min
[2024-07-29] MEDS: Diltiazem 125 MG in Dextrose 5%-Water (100mL Bag) 100 ML IV (14:41)
[2024-07-29] MEDS: Ertapenem Sod 1 GM in 0.9% Normal Saline (50mL MB+) 50 ML IV (15:31)
[2024-07-29 15:54] LABS: Reflex Lactate? Y
[2024-07-29] MEDS: Cefepime HCl 1 GM in 0.9% Normal Saline (50mL MB+) 50 ML IV (17:27)
[2024-07-29] MEDS: Insulin Lispro 100 UNIT/ML INSULN.PEN SC (17:30)
[2024-07-29 17:32] LABS: Lactic Acid 1.1 mmol/L (0.4-1.9)
[2024-07-29 17:32] LABS: Bedside Glucose 158 mg/dL (74-106)
[2024-07-29] MEDS: Furosemide 40 MG Tablet PO (18:19)
[2024-07-29] MEDS: Vancomycin HCl 2,000 MG in 0.9% Normal Saline (500mL Bag) 500 ML 250 MG IV (18:19)
[2024-07-29] MEDS: APIXABAN 5 MG TABLET PO (20:32)
[2024-07-29] MEDS: ChlorproMAZINE 25 MG Tablet 50 MG PO (20:32)
[2024-07-29] MEDS: Insulin Glargine-YFGN 100 UNIT/ML Pen 10 UNIT SC (20:32)
[2024-07-29 21:02] LABS: Bedside Glucose 146 mg/dL (74-106)
--- NOTE | 2024-07-29 21:33 | PHA.PHARE_ITS ---
Consult Antibiotic Management Pharmacy has been consulted to manage selected antibiotic: Vancomycin Type of Intervention Type of Consult: New start Labs Labs: Sodium 129 mmol/L (136-145) L 07/29/24 11:50 Potassium 4.7 mmol/L (3.5-5.1) 07/29/24 11:50 Chloride 97 mmol/L (98-107) L 07/29/24 11:50 Carbon Dioxide 24.0 mmol/L (21.0-32.0) 07/29/24 11:50 Anion Gap 8 (5-15) 07/29/24 11:50 BUN 24 mg/dL (7-18) H 07/29/24 11:50 Creatinine 2.29 mg/dL (0.55-1.02) H 07/29/24 11:50 Est GFR (MDRD) Af Amer 27 mL/min (>60) L 07/29/24 11:50 Est GFR (MDRD) Non-Af 23 mL/min (>60) L 07/29/24 11:50 BUN/Creatinine Ratio 10.5 RATIO (10-20) 07/29/24 11:50 Glucose 198 mg/dL (74-106) H 07/29/24 11:50 Microbiology Microbiology: Microbiology 07/29/24 12:00 Mucosa - Nose SARS-CoV-2, Influenza & RSV (PCR) - Final SARS-CoV-2 (COVID 19 PCR) Dosing Weight Weight used for dosin.3 kg Estimated Creatinine Clearance Estimated Creatinine Clearance: 27.7 Goal Trough Goal Trough: 15-20 mcg/mL Pharmacy Plan for Drug Dosing Pharmacy Plan for Drug Dosing: Patient received an initial vancomycin IV dose 07/29/24 @1819. She is scheduled for dialysis Mon, Wed & Sun. Subsequent vanco doses will be scheduled post- dialysis sessions and determined by levels. Pharmacy will verify with nursing dates and times of HD. Pharmacy Service will continue to monitor and adjust dosing as required.
[2024-07-30] VITALS (18 sets, daily range): BP systolic 102–118; BP diastolic 59–80; PULSE 89–110; RESP 20–28; TEMP 36.2–37.1; O2SAT 96–98
[2024-07-30] MEDS: Diltiazem 125 MG in Dextrose 5%-Water (100mL Bag) 100 ML 15 MG IV (01:00)
[2024-07-30 05:56] LABS: Absolute Neutrophil Count 12.8 X10^3/uL (2.0-7.7); Basophil# 0.04 X10^3/uL; Basophil% 0.3 % (0-1); Eosinophil# 0.12 X10^3/uL; Eosinophils% 0.8 % (0-5); Hematocrit 24.1 % (37-47); Hemoglobin 7.6 g/dL (12.0-15.0); Lymphocyte % 9.6 % (19-41); Mean Corp Hgb Conc 31.5 g/dL (32-36); Mean Corpuscular Hgb 28.9 pg (27.0-32.0); Mean Corpuscular Volume 91.6 fL (81-99); Mean Platelet Vol. 9.2 fl (6.2-12.0); Monocyte# 0.97 X10^3/uL; Monocyte% 6.2 % (0-10); NRBC Flagged by Analyzer 0 % (0-5); Neutrophil # 12.79 X10^3/uL (2.7-7.7); Neutrophil % 81.5 % (47-70); Platelet Count 295 K/mm3 (150-450); RBC Distribution Width CV 14.8 % (11.6-14.6); RBC Distribution Width SD 49.9 fl (35.1-43.9); Red Blood Count 2.63 M/mm3 (4.2-5.4); White Blood Count 15.7 K/mm3 (4.4-11.0)
[2024-07-30 06:48] LABS: Bedside Glucose 153 mg/dL (74-106)
[2024-07-30 06:55] LABS: Anion Gap 9 (5-15); BUN 24 mg/dL (7-18); BUN/Creat Ratio 12.4 RATIO (10-20); Calcium,Total 8.6 mg/dL (8.5-10.1); Chloride 101 mmol/L (98-107); Creatinine, Serum 1.93 mg/dL (0.55-1.02); EST Glomerular Filtration Rate 28 mL/min (>60); Est Glom Filt Rate - Afr Amer 33 mL/min (>60); Estimated Creatinine Clearance 31.78 ml/min; Glucose 164 mg/dL (74-106); Potassium 4.1 mmol/L (3.5-5.1); Sodium Level 132 mmol/L (136-145)
[2024-07-30] MEDS: ChlorproMAZINE 25 MG Tablet 50 MG PO ×2 (08:28→22:27)
[2024-07-30] MEDS: Metoprolol(XL)Succ 50 MG Tablet PO (08:28)
[2024-07-30] MEDS: Diltiazem 125 MG in Dextrose 5%-Water (100mL Bag) 100 ML 10 MG IV ×2 (08:40→08:45)
[2024-07-30] MEDS: dilTIAZem 60 MG Tablet PO ×3 (08:40→22:27)
--- NOTE | 2024-07-30 08:44 | PCM.PN.HOSP ---
Reason for Visit Reason for Visit: Diagnoses Unspecified atrial fibrillation (07/29/24) Urinary tract infection, site not specified (07/29/24) COVID-19 (07/29/24) Objective Data Objective Data Vital Signs: Vital Signs Temp Pulse Resp BP Pulse Ox O2 Del Method 97.3 F L 100 28 H 117/73 97 Room Air 07/29/24 22:00 07/30/24 08:28 07/30/24 08:00 07/30/24 08:28 07/30/24 08:00 07/30/24 08:00 Oxygen Delivery Method Room Air Weight: 218 lb 14.704 oz Body Mass Index (BMI) 38.7 Intake & Output: Intake and Output for Last 24 Hours 07/28/24 07/29/24 07/30/24 23:59 23:59 23:59 Intake Total 1232.83 / 1247.83 144.08 / 144.08 Output Total 900 / 1350 600 / 600 Balance 332.83 / -102.17 -455.92 / -455.92 Lab / Micro Data 07/30/24 05:34 07/30/24 05:30 Labs: Laboratory Results - last 24 hr 07/29/24 11:50: WBC 18.5 H, RBC 3.59 L, Hgb 10.4 L, Hct 33.5 L, MCV 93.3, MCH 29.0, MCHC 31.0 L, RDW Std Deviation 50.0 H, RDW Coeff of Rolly 14.6, Plt Count 361, MPV 9.0, Immature Gran % (Auto) 1.400 H, Neut % (Auto) 81.5 H, Lymph % (Auto) 9.3 L, [place] % (Auto) 6.8, Eos % (Auto) 0.6, Baso % (Auto) 0.4, Absolute Neuts (auto) 15.1 H, Absolute Lymphs (auto) 1.72, Nucleated RBC % 0, PT 21.9 H, INR 1.9, APTT 36.5 H, Sodium 129 L, Potassium 4.7, Chloride 97 L, Carbon Dioxide 24.0, Anion Gap 8, BUN 24 H, Creatinine 2.29 H, Estim Creat Clear Calc 27.70, Est GFR (MDRD) Af Amer 27 L, Est GFR (MDRD) Non-Af 23 L, BUN/Creatinine Ratio 10.5, Glucose 198 H, Lactic Acid 2.5 H*, Calcium 9.3, Total Bilirubin 0.50, AST 23, ALT 21, Alkaline Phosphatase 127 H, Total Protein 8.2, Albumin 1.9 L, Globulin 6.3 H, Albumin/Globulin Ratio 0.3 L 07/29/24 12:51: Urine Color Yellow, Urine Clarity Cloudy, Urine pH 6.0, Ur Specific [place] 1.015, Urine Protein 100 H, Urine Glucose (UA) Normal, Urine Ketones Negative, Urine Occult Blood 150 H, Urine Nitrite Negative, Urine Bilirubin Negative, Urine Urobilinogen Normal, Ur Leukocyte Esterase 500 H, Urine RBC 0-5 SEEN, Urine WBC 50-100 SEEN, Ur Squamous Epith Cells 0-5 SEEN, Urine Bacteria 0 SEEN, Urine Mucus 0 SEEN, Urine Yeast 2+ 07/29/24 13:56: POC Glucose 217 H 07/29/24 16:47: Lactic Acid 1.1 07/29/24 17:02: POC Glucose 158 H 07/29/24 20:30: POC Glucose 146 H 07/30/24 05:30: Sodium 132 L, Potassium 4.1, Chloride 101, Carbon Dioxide 22.0, Anion Gap 9, BUN 24 H, Creatinine 1.93 H, Estim Creat Clear Calc 31.78, Est GFR (MDRD) Af Amer 33 L, Est GFR (MDRD) Non-Af 28 L, BUN/Creatinine Ratio 12.4, Glucose 164 H, Calcium 8.6 07/30/24 05:34: WBC 15.7 H, RBC 2.63 L, Hgb 7.6 L, Hct 24.1 L, MCV 91.6, MCH 28.9, MCHC 31.5 L, RDW Std Deviation 49.9 H, RDW Coeff of Rolly 14.8 H, Plt Count 295, MPV 9.2, Immature Gran % (Auto) 1.600 H, Neut % (Auto) 81.5 H, Lymph % (Auto) 9.6 L, [place] % (Auto) 6.2, Eos % (Auto) 0.8, Baso % (Auto) 0.3, Absolute Neuts (auto) 12.8 H, Absolute Lymphs (auto) 1.50, Nucleated RBC % 0 07/30/24 06:24: POC Glucose 153 H Micro: Microbiology 07/29/24 12:00 Mucosa - Nose SARS-CoV-2, Influenza & RSV (PCR) - Final SARS-CoV-2 (COVID 19 PCR) ABG Data ABG results: ABG 07/29/24 11:58 Specimen Type ART Sample Site R Brach pH 7.47 H Bicarbonate Actual 21.5 L Total CO2 22 Base Excess -2 O2 Saturation 96 ABG pCO2 29.3 L ABG pO2 75 Martin Test Positive O2 Delivery Device Room Air Vent Mode Not entered Radiography Diagnostic Testing: Radiology Impression Chest X-Ray 07/29/24 12:25 IMPRESSION: No active disease. Electronically Signed: Atif Burgos MD at 13:03 EDT , Rhythm Strip Rhythm Strip: A-fib Rate: 157 Ectopy: None Physical Exam Narrative Seen and examined. Patient shortness of breath is better but is still mild short of breath. Has bilateral lower extremity swelling. Denies chest pain pressure or tightness. Has Brothers catheter. Physical exam General: Alert, Oriented x3, Cooperative. Looks chronically sick. HEENT: Atraumatic, PERRLA, EOMI, Normocephalic Oral: No Gingival or Mucosal Lesions/ Ulcerations Neck: Supple, No JVD, Negative Carotid Bruits Chest wall/Lungs: Air entry diminished in bilateral lung bases. No crepitation/rhonchi Cardiovascular: A-fib RVR, Normal S1, Normal S2, No M/G/R Abdomen: Bowel Sounds Present, Soft, Non Tender, Non-Distended : Brothers catheter. Positive flecks in the catheter tube. No renal angle tenderness. No suprapubic tenderness. Extremities: 2+ edema, Capillary Refill Less than 3 Seconds Skin: 1 cm ulcer on posterior right thigh superficial with granulation tissue pinkish hue at the edge Musculoskeletal: No Tenderness to Palpation of Joints or Extremities Neurological: Cranial nerves II-XII grossly intact, DTR 2+/4. No acute focal neurological deficit. Psych/Mental Status: Flat affect Assessment & Plan Assessment/Plan (1) Acute UTI: (2) Atrial fibrillation with rapid ventricular response: (3) COVID: PLAN: Plan 69-year-old female was admitted from nursing facility for altered mental status and fever. Tachycardic and recently diagnosed with UTI and supposed to be started on water. But could not done so because PICC line not successful. Patient was admitted between 07/21 to 07/24 for encephalopathy A-fib with RVR and UTI. #Sepsis due to inadequately treated UTI and COVID admit to PCU patient admitted with a complaint of tachycardia and fever. Was recently in the hospital and managed for UTI. Urine cultures grew E coli. She was discharged on ertapenem with dialysis x 3. Preablation did not get the domperidone either through dialysis catheter PICC line. Mild tachycardia and tachypnea and shortness of breath. Leukocytosis with immature granulocytes more than 1% suggestive of left shift due to sepsis. Patient cannot have sepsis fluid protocol because of ESRD and shortness of breath. Chest x-ray initially reviewed. AP view. No acute consolidation or opacity but mild interstitial thickening/edema. Reported as no active disease. Blood culture pending. COVID test positive. Of note she did have wound cultures were also positive for MRSA and Pseudomonas and MRSA as well as strep. Continue IV vancomycin dosed with dialysis and Zosyn. Get ID consult. Also started on IV Decadron due to COVID. #A-fib with RVR probably precipitated by sepsis: Patient also had A-fib with RVR during the last admission. Cardizem drip at 15 mg/h. Try to taper down gradually with the starting oral Cardizem and metoprolol succinate. Eliquis held because of severe anemia hemoglobin 7.6 #COVID-19 infection: Patient currently on room air. She is septic and this could also be attributed to the COVID though it does seem like it may be more due to her inadequately treated UTI and thigh wound. hold off on remdesivir as she is on room air. Start Decadron 6 mg daily IV. #ESRD on hemodialysis: Consult nephrology. On dialysis Wednesdays and Fridays. # Acute anemia with history of chronic anemia: Hemoglobin dropped to 7.6 from 10.4 yesterday. Baseline is between 8 to 9 g%. MCV normal. RDW upper limit normal. Platelet count normal. Patient had iron workup on 07/22/2024 which shows serum iron 16, TIBC normal, iron saturation low suggestive of anemia of chronic disease. Ferritin high in the 100. Anemia: Required transfusion during previous admissions. Hb today is 10.4. Continue oral iron supplementation. #History of DVT and right lower extremity hematoma This was during a recent admission at [facility]. Was offered Eliquis but now back on her Eliquis. #Type 2 diabetes mellitus: On Lantus 10 units daily. Insulin sliding scale. Accu-Cheks ACHS. DVT prophylaxis: Already on Eliquis CODE STATUS: full code Patient, and brother counseled extensively about different types of CODE STATUS including full code, DNR CCA and DNR CCA. Patient elects to be full code. Total time of the visit including total time spent in counseling or coordination of care, (more than 50% of the total time, spent in obtaining medical information from nurses and other ancillary care providers,explaining to the patient about labs, imaging, diagnosis and management of active complex medical conditions), multiple complex medical conditions including sepsis, A-fib RVR, severe anemia, ESRD on hemodialysis, review of labs and imaging is 40 minutes. Charges/Coding Visit Charges Inpatient E&M: 58910 Subs Hosp L3
[2024-07-30] MEDS: Acetaminophen 325 MG Tablet 650 MG PO (09:23)
[2024-07-30] MEDS: Folic Acid/Vitamin B Comp W-C 1 Capsule 1 CAP PO (09:23)
[2024-07-30] MEDS: Hydrocortisone 2.5% Crm 1 APPLIC TOPICAL (09:24)
[2024-07-30] MEDS: 0.9% Saline Lock 10 ML Syringe IV ×2 (09:34→09:35)
--- NOTE | 2024-07-30 09:53 | NURSING ---
Report given to Paulina Montalvo RN who is assuming care.
--- NOTE | 2024-07-30 10:06 | CASEMGMT ---
Discharge Planning Updates sent to [facility] via [facility]. Covid results attached and asked if pt will need a precert to return. Aleyda Loja DC Planning Asst.
--- NOTE | 2024-07-30 11:33 | CON.PCM.RE_ITS ---
Assessment & Plan Assessment/Plan (1) Acute kidney injury: PLAN: She came in from [place] as acute renal failure. As per records of brain from there, she was deemed acute renal failure presumably due to ATN, unknown baseline prior to that. No evidence of hydronephrosis. Has been on dialysis 3 times a week. However creatinine is slightly lower than yesterday, last dialysis was Sunday. Urine output is okay. For today I will hold dialysis. If creatinine remains stable, I may keep her off dialysis and assess for recovery. Recent infections requiring ertapenem. She did not receive antibiotic on Sunday. Last dose I believe was Sunday last week when she was here. This is related to policy change of the dialysis unit where they will not infuse outside medications. She may not even need dialysis after this. Suggest PICC line or tunneled PICC line as possible for long-term IV antibiotic administration. Discussed with hospitalist HPI Consult Data Date of Consult: 07/30/24 HPI Narrative Reason for Consultation: JAILYN HPI Narrative: GLADIS VELOZ, is a 69 F who presents To the hospital with fever, chills. Being treated for suspected UTI/pyelonephritis. Nephrology on consultation in view of acute renal failure requiring dialysis. She initially came to us from a hospital in [place]. As per records obtained from there, she was being treated as acute renal failure after recent hospitalization in May. Baseline creatinine was unknown. I do not have a previous baseline creatinine either. Has been on dialysis Sunday, Sunday, Sunday. She was recently admitted here, discharged end of last week. I did receive a few phone calls from the long-term over the weekend. She was supposed to have received ertapenem after dialysis starting Sunday this week. However it seems there was a policy change in [facility] dialysis unit and they were not able to give ertapenem after dialysis. I spoke to the nursing staff on Sunday and requested a PICC line to be placed. It seems this was not able to be placed and she presented back with fever and chills. Positive for COVID, being treated. Urine output was charted as about 900 cc yesterday, already 600 cc today. Creatinine is down to 1.9 from 2.2 yesterday. [facility] Medical History Acute kidney injury superimposed on chronic kidney disease Home Medications ?Medication ?Instructions ?Recorded ?Last Taken ?Type acetaminophen 325 mg tablet 325 mg PO Q4H PRN fever or pain 07/21/24 Unknown History apixaban 5 mg tablet 5 mg PO BID 07/21/24 Unknown History chlorpromazine 50 mg tablet 50 mg PO BID 07/21/24 Unknown History furosemide 40 mg tablet 40 mg PO .COMPLEX EDEMA 07/21/24 Unknown History hydrocortisone 1 % topical cream 1 applic topical DAILY HEMORROIDS 07/21/24 Unknown History (Ala-Marlo) metoprolol tartrate 100 mg tablet 100 mg PO QHS 07/21/24 Unknown History vitamin B comp no.3-folic acid 1 1 tab PO DAILY 07/21/24 Unknown History mg-vit C 60 mg-biotin 300 mcg tablet (Clover-Boaz Rx) insulin glargine-yfgn 100 unit/mL 10 unit (0.1 mL) subcut QPM #0 mL 07/24/24 Unknown Rx (3 mL) subcutaneous pen ertapenem 1 gram solution for 0.5 g IV MOWEFR 07/29/24 Unknown History injection ferrous sulfate 325 mg (65 mg 325 mg PO DAILY 07/29/24 Unknown History iron) tablet (FeroSul) insulin lispro 100 unit/mL 1 sliding scale dose subcut ACHS 07/29/24 Unknown History subcutaneous pen (Humalog KwikPen (U-100) Insulin) sennosides 8.6 mg-docusate sodium 2 tab PO BID PRN Constipation 07/29/24 Unknown History 50 mg tablet (Stimulant Laxative Plus) thioridazine 50 mg tablet 50 mg PO BID 07/29/24 Unknown History Allergy/AdvReac Type Severity Reaction Status Date / Time propoxyphene (From Darvon) Allergy Mild PT UNABLE Verified 07/29/24 11:38 TO RESPOND-NEEDS F/U haloperidol (From Haldol) Allergy PT UNABLE Verified 07/29/24 11:38 TO RESPOND-NEEDS F/U Penicillins Allergy PT UNABLE Verified 07/29/24 11:38 TO RESPOND-NEEDS F/U Family History unable to obtain Social History Smoking Status: Never smoker ROS ROS Narrative negative except above Physical Exam Narrative alert awake comfortable s1s2 + edema Lab / Micro Data 07/30/24 05:34 07/30/24 05:30 Labs: Laboratory Results - last 24 hr 07/29/24 11:50: WBC 18.5 H, RBC 3.59 L, Hgb 10.4 L, Hct 33.5 L, MCV 93.3, MCH 29.0, MCHC 31.0 L, RDW Std Deviation 50.0 H, RDW Coeff of Rolly 14.6, Plt Count 361, MPV 9.0, Immature Gran % (Auto) 1.400 H, Neut % (Auto) 81.5 H, Lymph % (Auto) 9.3 L, [place] % (Auto) 6.8, Eos % (Auto) 0.6, Baso % (Auto) 0.4, Absolute Neuts (auto) 15.1 H, Absolute Lymphs (auto) 1.72, Nucleated RBC % 0, PT 21.9 H, INR 1.9, APTT 36.5 H, Sodium 129 L, Potassium 4.7, Chloride 97 L, Carbon Dioxide 24.0, Anion Gap 8, BUN 24 H, Creatinine 2.29 H, Estim Creat Clear Calc 27.70, E st GFR (MDRD) Af Amer 27 L, Est GFR (MDRD) Non-Af 23 L, BUN/Creatinine Ratio 10.5, Glucose 198 H, Lactic Acid 2.5 H*, Calcium 9.3, Total Bilirubin 0.50, AST 23, ALT 21, Alkaline Phosphatase 127 H, Total Protein 8.2, Albumin 1.9 L, G lobulin 6.3 H, Albumin/Globulin Ratio 0.3 L 07/29/24 12:51: Urine Color Yellow, Urine Clarity Cloudy, Urine pH 6.0, Ur Specific [place] 1.015, Urine Protein 100 H, Urine Glucose (UA) Normal, Urine Ketones Negative, Urine Occult Blood 150 H, Urine Nitrite Negative, Urine Bilirubin Negative, Urine Urobilinogen Normal, Ur Leukocyte Esterase 500 H, Urine RBC 0-5 SEEN, Urine WBC 50-100 SEEN, Ur Squamous Epith Cells 0-5 SEEN, Urine Bacteria 0 SEEN, Urine Mucus 0 SEEN, Urine Yeast 2+ 07/29/24 13:56: POC Glucose 217 H 07/29/24 16:47: Lactic Acid 1.1 07/29/24 17:02: POC Glucose 158 H 07/29/24 20:30: POC Glucose 146 H 07/30/24 05:30: Sodium 132 L, Potassium 4.1, Chloride 101, Carbon Dioxide 22.0, Anion Gap 9, BUN 24 H, Creatinine 1.93 H, Estim Creat Clear Calc 31.78, Est GFR (MDRD) Af Amer 33 L, Est GFR (MDRD) Non-Af 28 L, BUN/Creatinine Ratio 12.4, G lucose 164 H, Calcium 8.6 07/30/24 05:34: WBC 15.7 H, RBC 2.63 L, Hgb 7.6 L, Hct 24.1 L, MCV 91.6, MCH 28.9, MCHC 31.5 L, RDW Std Deviation 49.9 H, RDW Coeff of Rolly 14.8 H, Plt Count 295, MPV 9.2, Immature Gran % (Auto) 1.600 H, Neut % (Auto) 81.5 H, Lymph % (Auto) 9.6 L, [place] % (Auto) 6.2, Eos % (Auto) 0.8, Baso % (Auto) 0.3, Absolute Neuts (auto) 12.8 H, Absolute Lymphs (auto) 1.50, Nucleated RBC % 0 07/30/24 06:24: POC Glucose 153 H Micro: Microbiology 07/29/24 12:51 Urine Catheter - Catheter Urine Culture - Preliminary GPC Poss Enterococcus sp 07/29/24 12:00 Mucosa - Nose SARS-CoV-2, Influenza & RSV (PCR) - Final SARS-CoV-2 (COVID 19 PCR) ABG Data ABG results: ABG 07/29/24 11:58 Specimen Type ART Sample Site R Brach pH 7.47 H Bicarbonate Actual 21.5 L Total CO2 22 Base Excess -2 O2 Saturation 96 ABG pCO2 29.3 L ABG pO2 75 Martin Test Positive O2 Delivery Device Room Air Vent Mode Not entered Rhythm Strip Rhythm Strip: A-fib Rate: 157 Ectopy: None Imaging Radiology Impression Chest X-Ray 07/29/24 12:25 IMPRESSION: No active disease. Electronically Signed: Atif Burgos MD at 13:03 EDT ,
[2024-07-30 11:58] LABS: Bedside Glucose 180 mg/dL (74-106)
[2024-07-30] MEDS: Insulin Lispro 100 UNIT/ML INSULN.PEN SC ×3 (12:19→22:28)
[2024-07-30 12:58] LABS: Platelet Count 290 K/mm3 (150-450); RET-HE 22.6 pg (30-35); Reticulocyte Count 1.23 % (0.5-1.5)
[2024-07-30 13:09] LABS: LDH 182 U/L (84-246)
--- NOTE | 2024-07-30 13:55 | PCM.CONS.GEN ---
Assessment & Plan Assessment/Plan (1) COVID: PLAN: Will start 3 dose course remdesivir. Cont vanc/cefepime to cover recent ecoli, MRSA, strep, and PsA. Will follow, thank you (2) ESRD on hemodialysis: (3) Acute UTI: (4) Coag negative Staphylococcus bacteremia: HPI Consult Data Date of Consult: 07/30/24 HPI Narrative Reason for Consultation: covid HPI Narrative: GLADIS VELOZ, is a 69 F with recent admit for afib with rvr, ecoli uti, and RLE infected wound. 1 of 1 bcx also with MRSE. Discharged on ertapenem dosed with HD MWF to ECF but may not have received any doses due to dialysis center policy re: outside meds. Sent here with several days cough, fever, weakness, lethargy, not feeling well. Covid (+), admitted on vanc/cefepime. Feeling better. Full ROS performed and neg except as noted above. [facility] Medical History Acute kidney injury superimposed on chronic kidney disease Home Medications ?Medication ?Instructions ?Recorded ?Last Taken ?Type acetaminophen 325 mg tablet 325 mg PO Q4H PRN fever or pain 07/21/24 Unknown History apixaban 5 mg tablet 5 mg PO BID 07/21/24 Unknown History chlorpromazine 50 mg tablet 50 mg PO BID 07/21/24 Unknown History furosemide 40 mg tablet 40 mg PO .COMPLEX EDEMA 07/21/24 Unknown History hydrocortisone 1 % topical cream 1 applic topical DAILY HEMORROIDS 07/21/24 Unknown History (Ala-Marlo) metoprolol tartrate 100 mg tablet 100 mg PO QHS 07/21/24 Unknown History vitamin B comp no.3-folic acid 1 1 tab PO DAILY 07/21/24 Unknown History mg-vit C 60 mg-biotin 300 mcg tablet (Clover-Boaz Rx) insulin glargine-yfgn 100 unit/mL 10 unit (0.1 mL) subcut QPM #0 mL 07/24/24 Unknown Rx (3 mL) subcutaneous pen ertapenem 1 gram solution for 0.5 g IV MOWEFR 07/29/24 Unknown History injection ferrous sulfate 325 mg (65 mg 325 mg PO DAILY 07/29/24 Unknown History iron) tablet (FeroSul) insulin lispro 100 unit/mL 1 sliding scale dose subcut ACHS 07/29/24 Unknown History subcutaneous pen (Humalog KwikPen (U-100) Insulin) sennosides 8.6 mg-docusate sodium 2 tab PO BID PRN Constipation 07/29/24 Unknown History 50 mg tablet (Stimulant Laxative Plus) thioridazine 50 mg tablet 50 mg PO BID 07/29/24 Unknown History Allergy/AdvReac Type Severity Reaction Status Date / Time propoxyphene (From Darvon) Allergy Mild PT UNABLE Verified 07/29/24 11:38 TO RESPOND-NEEDS F/U haloperidol (From Haldol) Allergy PT UNABLE Verified 07/29/24 11:38 TO RESPOND-NEEDS F/U Penicillins Allergy PT UNABLE Verified 07/29/24 11:38 TO RESPOND-NEEDS F/U Family History unable to obtain Social History Smoking Status: Never smoker Physical Exam Const alert and no apparent distress General Appearance: cooperative HEENT normocephalic and head/scalp atraumatic Eyes PERRL and EOMs intact bilaterally Neck supple and No nodes Resp Auscultation: diminished lung sounds Cardio Negative for regular rate or regular rhythm GI soft to palpation, non-tender and non-distended Extremity General Extremity: edema Skin no rashes or lesions noted Neuro CN's II-XII intact bilaterally Lab / Micro Data Attestation: I reviewed the patient's lab results. 07/30/24 05:34 07/30/24 05:30 Labs: Laboratory Results - last 24 hr 07/29/24 13:56: POC Glucose 217 H 07/29/24 16:47: Lactic Acid 1.1 07/29/24 17:02: POC Glucose 158 H 07/29/24 20:30: POC Glucose 146 H 07/30/24 05:30: Sodium 132 L, Potassium 4.1, Chloride 101, Carbon Dioxide 22.0, Anion Gap 9, BUN 24 H, Creatinine 1.93 H, Estim Creat Clear Calc 31.78, Est GFR (MDRD) Af Amer 33 L, Est GFR (MDRD) Non-Af 28 L, BUN/Creatinine Ratio 12.4, Glucose 164 H, Calcium 8.6 07/30/24 05:34: WBC 15.7 H, RBC 2.63 L, Hgb 7.6 L, Hct 24.1 L, MCV 91.6, MCH 28.9, MCHC 31.5 L, RDW Std Deviation 49.9 H, RDW Coeff of Rolly 14.8 H, Plt Count 295, MPV 9.2, Immature Gran % (Auto) 1.600 H, Neut % (Auto) 81.5 H, Lymph % (Auto) 9.6 L, [place] % (Auto) 6.2, Eos % (Auto) 0.8, Baso % (Auto) 0.3, Absolute Neuts (auto) 12.8 H, Absolute Lymphs (auto) 1.50, Nucleated RBC % 0 07/30/24 06:24: POC Glucose 153 H 07/30/24 11:31: POC Glucose 180 H 07/30/24 12:18: Retic Count 1.23, Immature Retic Fraction 18.10 H, Retic Hgb Equivalent 22.6 L, Lactate Dehydrogenase 182 Micro: Microbiology 07/29/24 12:51 Urine Catheter - Catheter Urine Culture - Preliminary GPC Poss Enterococcus sp 07/29/24 12:00 Mucosa - Nose SARS-CoV-2, Influenza & RSV (PCR) - Final SARS-CoV-2 (COVID 19 PCR) Rhythm Strip Rhythm Strip: A-fib Rate: 157 Ectopy: None
[2024-07-30] MEDS: Remdesivir 200 MG in 0.9% Normal Saline (250mL Bag) 210 ML 125 MG IV (14:01)
[2024-07-30] MEDS: Ferrous Sulfate 325 MG Tablet PO (14:01)
[2024-07-30] MEDS: Cefepime HCl 0.5 GM in 0.9% Normal Saline (50mL Bag) 50 ML IV (16:33)
[2024-07-30 16:55] LABS: Bedside Glucose 229 mg/dL (74-106)
[2024-07-30] MEDS: Insulin Glargine-YFGN 100 UNIT/ML Pen 10 UNIT SC (22:27)
[2024-07-30 22:54] LABS: Bedside Glucose 177 mg/dL (74-106)
[2024-07-31] VITALS (13 sets, daily range): BP systolic 105–140; BP diastolic 62–93; PULSE 101–122; RESP 18–28; TEMP 36.6–37.3; O2SAT 95–99
[2024-07-31 06:01] LABS: Absolute Lymphocyte Count 1.82 X10^3/uL (0.83-4.51); Absolute Neutrophil Count 11.9 X10^3/uL (2.0-7.7); Basophil# 0.04 X10^3/uL; Basophil% 0.3 % (0-1); Eosinophil# 0.15 X10^3/uL; Hematocrit 23.8 % (37-47); Hemoglobin 7.5 g/dL (12.0-15.0); Lymphocyte # 1.82 X10^3/ul (0.83-4.51); Lymphocyte % 11.9 % (19-41); Mean Corp Hgb Conc 31.5 g/dL (32-36); Mean Corpuscular Volume 91.9 fL (81-99); Mean Platelet Vol. 9.3 fl (6.2-12.0); Monocyte# 1.19 X10^3/uL; Monocyte% 7.8 % (0-10); NRBC Flagged by Analyzer 0.1 % (0-5); Neutrophil # 11.92 X10^3/uL (2.7-7.7); Neutrophil % 77.8 % (47-70); Platelet Count 324 K/mm3 (150-450); RBC Distribution Width CV 14.9 % (11.6-14.6); Red Blood Count 2.59 M/mm3 (4.2-5.4); White Blood Count 15.3 K/mm3 (4.4-11.0)
[2024-07-31 06:27] LABS: ALB/GLOB Ratio 0.3 RATIO (0.9-2.4); AST(SGOT) 31 U/L (15-37); Alanine Aminotransfer ALT/SGPT 27 U/L (13-56); Albumin, Serum 1.6 g/dL (3.2-5.0); Alkaline Phosphatase 114 U/L (45-117); Anion Gap 6 (5-15); BUN 25 mg/dL (7-18); BUN/Creat Ratio 13.2 RATIO (10-20); Calcium,Total 8.9 mg/dL (8.5-10.1); Chloride 103 mmol/L (98-107); EST Glomerular Filtration Rate 28 mL/min (>60); Est Glom Filt Rate - Afr Amer 34 mL/min (>60); Estimated Creatinine Clearance 32.28 ml/min; Globulin 5.1 g/dL (2.2-4.2); Glucose 122 mg/dL (74-106); Potassium 4.2 mmol/L (3.5-5.1); Protein, Total 6.7 g/dL (6.4-8.2); Sodium Level 133 mmol/L (136-145)
[2024-07-31 06:28] LABS: Vancomycin, Random Level 14.7 ug/mL (0.0-15.0)
[2024-07-31] MEDS: dilTIAZem 60 MG Tablet PO ×3 (06:44→21:37)
[2024-07-31 07:07] LABS: Bedside Glucose 112 mg/dL (74-106)
--- NOTE | 2024-07-31 08:52 | PN.HOSP_ITS ---
Reason for Visit Reason for Visit: Diagnoses Other staphylococcus as the cause of diseases classified elsewhere (07/29/24) Unspecified atrial fibrillation (07/29/24) Acute kidney failure, unspecified (07/29/24) End stage renal disease (07/29/24) Urinary tract infection, site not specified (07/29/24) Bacteremia (07/29/24) COVID-19 (07/29/24) Dependence on renal dialysis (07/29/24) Objective Data Objective Data Vital Signs: Vital Signs Temp Pulse Resp BP Pulse Ox O2 Del Method 99.1 F 101 H 20 H 131/84 H 95 Room Air 07/31/24 06:39 07/31/24 06:39 07/31/24 06:39 07/31/24 06:39 07/31/24 08:01 07/31/24 08:01 Oxygen Delivery Method Room Air Weight: 218 lb 14.704 oz Body Mass Index (BMI) 38.7 Intake & Output: Intake and Output for Last 24 Hours 07/29/24 07/30/24 07/31/24 23:59 23:59 23:59 Intake Total 1232.83 / 1247.83 850.00 / 1100.00 500 / 500 Output Total 900 / 1350 1100 / 1600 500 / 500 Balance 332.83 / -102.17 -250 / -500.00 0 / 0 Lab / Micro Data 07/31/24 05:51 07/31/24 05:51 Labs: Laboratory Results - last 24 hr 07/30/24 11:31: POC Glucose 180 H 07/30/24 12:18: Retic Count 1.23, Immature Retic Fraction 18.10 H, Retic Hgb Equivalent 22.6 L, Lactate Dehydrogenase 182, Direct Antiglob Test NEG w/POLYSPECIFIC 07/30/24 16:30: POC Glucose 229 H 07/30/24 22:23: POC Glucose 177 H 07/31/24 05:51: WBC 15.3 H, RBC 2.59 L, Hgb 7.5 L, Hct 23.8 L, MCV 91.9, MCH 29.0, MCHC 31.5 L, RDW Std Deviation 50.0 H, RDW Coeff of Rolly 14.9 H, Plt Count 324, MPV 9.3, Immature Gran % (Auto) 1.200 H, Neut % (Auto) 77.8 H, Lymph % (Auto) 11.9 L, [place] % (Auto) 7.8, Eos % (Auto) 1.0, Baso % (Auto) 0.3, Absolute Neuts (auto) 11.9 H, Absolute Lymphs (auto) 1.82, Nucleated RBC % 0.1, Sodium 133 L, Potassium 4.2, Chloride 103, Carbon Dioxide 24.0, Anion Gap 6, BUN 25 H, Creatinine 1.90 H, Estim Creat Clear Calc 32.28, Est GFR (MDRD) Af Amer 34 L, E st GFR (MDRD) Non-Af 28 L, BUN/Creatinine Ratio 13.2, Glucose 122 H, Calcium 8.9, Total Bilirubin 0.20, AST 31, ALT 27, Alkaline Phosphatase 114, Total Protein 6.7, Albumin 1.6 L, Globulin 5.1 H, Albumin/Globulin Ratio 0.3 L, Random Vancomycin 14.7 07/31/24 06:43: POC Glucose 112 H Micro: Microbiology 07/29/24 11:50 Blood Culture (Wb) - Anticubital Right Blood Culture - Preliminary No growth in 48 hours. 07/29/24 12:51 Urine Catheter - Catheter Urine Culture - Preliminary Enterococcus faecalis 07/29/24 12:00 Mucosa - Nose SARS-CoV-2, Influenza & RSV (PCR) - Final SARS-CoV-2 (COVID 19 PCR) Rhythm Strip Rhythm Strip: A-fib Rate: 157 Ectopy: None Physical Exam Narrative Seen and examined. Shortness of breath is better. She is comfortable not on oxygen. Patient's at the bedside. Has bilateral lower extremity swelling. Denies chest pain pressure or tightness. Has Brothers catheter. Physical exam General: Alert, Oriented x3, Cooperative. HEENT: Atraumatic, PERRLA, EOMI, Normocephalic Oral: No Gingival or Mucosal Lesions/ Ulcerations Neck: Supple, No JVD, Negative Carotid Bruits Chest wall/Lungs: Air entry diminished in bilateral lung bases. No crepitation/rhonchi. Right upper chest dialysis catheter. Cardiovascular: A-fib heart rate in 100s., Normal S1, Normal S2, No M/G/R Abdomen: Bowel Sounds Present, Soft, Non Tender, Non-Distended : Brothers catheter. Positive flecks in the catheter tube. No renal angle tenderness. No suprapubic tenderness. Extremities: 2+ edema, Capillary Refill Less than 3 Seconds Skin: 1 cm ulcer on posterior right thigh superficial with granulation tissue pinkish hue at the edge Musculoskeletal: No Tenderness to Palpation of Joints or Extremities Neurological: Cranial nerves II-XII grossly intact, DTR 2+/4. No acute focal neurological deficit. Psych/Mental Status: Flat affect Assessment & Plan Assessment/Plan (1) Acute UTI: (2) Atrial fibrillation with rapid ventricular response: (3) COVID: PLAN: Plan 69-year-old female was admitted from nursing facility for altered mental status and fever. Tachycardic and recently diagnosed with UTI and supposed to be started on water. But could not done so because PICC line not successful. Patient was admitted between 07/21 to 07/24 for encephalopathy A-fib with RVR and UTI. #Sepsis due to inadequately treated UTI and COVID * admit to PCU * patient admitted with a complaint of tachycardia and fever. Was recently in the hospital and managed for UTI. Urine cultures grew E coli. She was discharged on ertapenem with dialysis x 3. Preablation did not get the domperidone either through dialysis catheter PICC line. * Mild tachycardia and tachypnea and shortness of breath. Leukocytosis with immature granulocytes more than 1% suggestive of left shift due to sepsis. Patient cannot have sepsis fluid protocol because of ESRD and shortness of breath. Chest x-ray initially reviewed. AP view. No acute consolidation or opacity but mild interstitial thickening/edema. Reported as no active disease. * Blood culture pending. COVID test positive. * Of note she did have wound cultures were also positive for MRSA and Pseudomonas and MRSA as well as strep. * Continue IV vancomycin dosed with dialysis and Zosyn. 07/31: Patient was evaluated by ID. Continue vancomycin and cefepime to cover recent E. coli MRSA strep and Pseudomonas. After discussion with ID and nephrology seems patient did not get ertapenem in the long term for the dialysis catheter. #A-fib with RVR probably precipitated by sepsis: * Patient also had A-fib with RVR during the last admission. * Cardizem drip at 15 mg/h. Try to taper down gradually with the starting oral Cardizem and metoprolol succinate. * Eliquis held because of severe anemia hemoglobin 7.6 07/31: Heart rate is better controlled. Metoprolol dose increased to 50 mg p.o. twice daily. Heart rate is better controlled than yesterday. #COVID-19 infection: * Patient currently on room air. * She is septic and this could also be attributed to the COVID though it does seem like it may be more due to her inadequately treated UTI and thigh wound. * Start Decadron 6 mg daily IV. 07/31: Started on remdesivir, 3 course yesterday #ESRD on hemodialysis: Consult nephrology. On dialysis Wednesdays and Fridays. 07/31: Discussed with the records management technician. Holding of dialysis. # Acute anemia with history of chronic anemia: Hemoglobin dropped to 7.6 from 10.4 yesterday. Baseline is between 8 to 9 g%. MCV normal. RDW upper limit normal. Platelet count normal. Patient had iron workup on 07/22/2024 which shows serum iron 16, TIBC normal, iron saturation low suggestive of anemia of chronic disease. Ferritin high in the 100. 07/31: 1 unit PRBC transfusion ordered. She required transfusion during previous hospitalization also. #History of DVT and right lower extremity hematoma * This was during a recent admission at [facility]. 07/31: Eliquis discontinued because of severe anemia. * #Type 2 diabetes mellitus: On Lantus 10 units daily. Insulin sliding scale. Accu-Cheks ACHS. DVT prophylaxis: Already on Eliquis CODE STATUS: full code * Patient, and brother counseled extensively about different types of CODE STATUS including full code, DNR CCA and DNR CCA. Patient elects to be full code. Total time of the visit including total time spent in counseling or coordination of care, (more than 50% of the total time, spent in obtaining medical information from nurses and other ancillary care providers,explaining to the patient about labs, imaging, diagnosis and management of active complex medical conditions), multiple complex medical conditions including sepsis, A-fib RVR, severe anemia, ESRD on hemodialysis, review of labs and imaging is 40 minutes. Charges/Coding Visit Charges Inpatient E&M: 15834 Subs Hosp L2
[2024-07-31] MEDS: Furosemide 40 MG Tablet PO ×2 (09:14→16:39)
[2024-07-31] MEDS: Metoprolol(XL)Succ 50 MG Tablet PO ×2 (09:14→21:37)
[2024-07-31] MEDS: Folic Acid/Vitamin B Comp W-C 1 Capsule 1 CAP PO (09:14)
[2024-07-31] MEDS: Hydrocortisone 2.5% Crm 1 APPLIC TOPICAL (09:18)
[2024-07-31] MEDS: ChlorproMAZINE 25 MG Tablet 50 MG PO ×2 (09:18→21:37)
--- NOTE | 2024-07-31 09:41 | CASEMGMT ---
SW met with patient's . Introduced self and role at [facility]. Patient's confirmed the plan is to return to [facility] at discharge. Plan: d/c back to [facility] under skilled level of care. Diane HSU
[2024-07-31] MEDS: Acetaminophen 325 MG Tablet 650 MG PO (10:13)
--- NOTE | 2024-07-31 10:55 | PCM.PN.REN ---
Subjective Subjective Sitting up in bed. No complaints. at bedside. Objective Data Objective Data Vital Signs: Vital Signs Temp Pulse Resp BP Pulse Ox O2 Del Method 99.1 F 122 H 20 H 129/62 H 95 Room Air 07/31/24 06:39 07/31/24 09:14 07/31/24 06:39 07/31/24 09:14 07/31/24 08:01 07/31/24 08:01 Oxygen Delivery Method Room Air Weight: 99.3 kg Body Mass Index (BMI) 38.7 Intake & Output: Intake and Output for Last 24 Hours 07/29/24 07/30/24 07/31/24 23:59 23:59 23:59 Intake Total 1232.83 / 1247.83 850.00 / 1100.00 500 / 500 Output Total 900 / 1350 1100 / 1600 500 / 500 Balance 332.83 / -102.17 -250 / -500.00 0 / 0 Lab / Micro Data 07/31/24 05:51 07/31/24 05:51 Labs: Laboratory Results - last 24 hr 07/30/24 11:31: POC Glucose 180 H 07/30/24 12:18: Retic Count 1.23, Immature Retic Fraction 18.10 H, Retic Hgb Equivalent 22.6 L, Lactate Dehydrogenase 182, Direct Antiglob Test NEG w/POLYSPECIFIC 07/30/24 16:30: POC Glucose 229 H 07/30/24 22:23: POC Glucose 177 H 07/31/24 05:51: WBC 15.3 H, RBC 2.59 L, Hgb 7.5 L, Hct 23.8 L, MCV 91.9, MCH 29.0, MCHC 31.5 L, RDW Std Deviation 50.0 H, RDW Coeff of [place] 14.9 H, Plt Count 324, MPV 9.3, Immature Gran % (Auto) 1.200 H, Neut % (Auto) 77.8 H, Lymph % (Auto) 11.9 L, [place] % (Auto) 7.8, Eos % (Auto) 1.0, Baso % (Auto) 0.3, Absolute Neuts (auto) 11.9 H, Absolute Lymphs (auto) 1.82, Nucleated RBC % 0.1, Sodium 133 L, Potassium 4.2, Chloride 103, Carbon Dioxide 24.0, Anion Gap 6, BUN 25 H, Creatinine 1.90 H, Estim Creat Clear Calc 32.28, Est GFR (MDRD) Af Amer 34 L, Est GFR (MDRD) Non-Af 28 L, BUN/Creatinine Ratio 13.2, Glucose 122 H, Calcium 8.9, Total Bilirubin 0.20, AST 31, ALT 27, Alkaline Phosphatase 114, Total Protein 6.7, Albumin 1.6 L, Globulin 5.1 H, Albumin/Globulin Ratio 0.3 L, Random Vancomycin 14.7 07/31/24 06:43: POC Glucose 112 H 07/31/24 09:03: Crossmatch See Detail Micro: Microbiology 07/29/24 11:50 Blood Culture (Wb) - Anticubital Right Blood Culture - Preliminary No growth in 48 hours. 07/29/24 12:51 Urine Catheter - Catheter Urine Culture - Preliminary Enterococcus faecalis 07/29/24 12:00 Mucosa - Nose SARS-CoV-2, Influenza & RSV (PCR) - Final SARS-CoV-2 (COVID 19 PCR) Rhythm Strip Rhythm Strip: A-fib Rate: 157 Ectopy: None Physical Exam Narrative alert awake comfortable s1s2 LS clear, on RA trace non-pitting edema b/l legs tunneled HD catheter dressing C/D/I sanchez clear urine in bag Assessment & Plan Assessment/Plan (1) Acute kidney injury: PLAN: - Dialysis requiring acute kidney injury secondary to ATN with unknown baseline creatinine. Started on hemodialysis at [facility] and has been on hemodialysis ~ 2 months. Last hemodialysis was at kidney center on July 25. Patient has not had dialysis since then. There has been some noted renal recovery, SCr 1.9mg/dL last 2 days. Urine output has picked up. Hold off on any renal replacement therapy today. Labs ordered for morning. If no further dialysis indicated then will have a tunneled hemodialysis catheter removed. - Recent infections requiring ertapenem. COVID-positive. Antibiotics per ID; currently receiving remdesivir, cefepime and vancomycin. If patient needs long-term IV antibiotics suggest PICC line placement. Given JAILYN recommend close monitoring of Vanco levels. -A-fib; blood pressures acceptable on on Cardizem, Toprol
--- NOTE | 2024-07-31 11:26 | PCM.RX.CS ---
Consult Antibiotic Management Pharmacy has been consulted to manage selected antibiotic: Vancomycin Type of Intervention Type of Consult: Follow-up Labs Labs: Sodium 133 mmol/L (136-145) L 07/31/24 05:51 Potassium 4.2 mmol/L (3.5-5.1) 07/31/24 05:51 Chloride 103 mmol/L (98-107) 07/31/24 05:51 Carbon Dioxide 24.0 mmol/L (21.0-32.0) 07/31/24 05:51 Anion Gap 6 (5-15) 07/31/24 05:51 BUN 25 mg/dL (7-18) H 07/31/24 05:51 Creatinine 1.90 mg/dL (0.55-1.02) H 07/31/24 05:51 Est GFR (MDRD) Af Amer 34 mL/min (>60) L 07/31/24 05:51 Est GFR (MDRD) Non-Af 28 mL/min (>60) L 07/31/24 05:51 BUN/Creatinine Ratio 13.2 RATIO (10-20) 07/31/24 05:51 Glucose 122 mg/dL (74-106) H 07/31/24 05:51 Random Vancomycin 14.7 ug/mL (0.0-15.0) 07/31/24 05:51 Microbiology Microbiology: Microbiology 07/29/24 11:50 Blood Culture (Wb) - Anticubital Right Blood Culture - Preliminary No growth in 48 hours. 07/29/24 12:51 Urine Catheter - Catheter Urine Culture - Preliminary Enterococcus faecalis 07/29/24 12:00 Mucosa - Nose SARS-CoV-2, Influenza & RSV (PCR) - Final SARS-CoV-2 (COVID 19 PCR) Goal Trough Goal Trough: 15-20 mcg/mL Pharmacy Plan for Drug Dosing Pharmacy Plan for Drug Dosing: VANCOMYCIN LEVEL RECEIVED Current Vancomycin Dose: Dose per random levels. NOTE: pt usually a HD patient, but SCr and urine output has improved, not necessitating dialysis at this time. No plans for HD per nephrology at this time. Number of Doses Received: loading dose of 2000mg IV x1 07/29/24 @1819 Vancomycin Level: 14.7 Hours Since Last Dose: ~36hrs Renal Function: 1.9 Renal Function Trend: stable. NO HD at this time per nephrology Vancomycin Plan/Comments: Patient had a random level drawn which resulted in a value of 14.7 (goal 15-20). Since the patient is not getting HD at this time, will proceed with dosing based on random levels until HD is restarted or a dosing pattern can be determined. For today, will give the patient 1500mg IV x1 per weight based protocol. Pending Level: *RANDOM* level 08/02/24 @0600 Pharmacy Service will continue to monitor and adjust dosing as required.
[2024-07-31] MEDS: Insulin Lispro 100 UNIT/ML INSULN.PEN SC ×3 (12:56→21:37)
[2024-07-31 13:18] LABS: Bedside Glucose 222 mg/dL (74-106)
[2024-07-31] MEDS: Vancomycin HCl 1,500 MG in 0.9% Normal Saline (500mL Bag) 500 ML 250 MG IV (13:30)
[2024-07-31] MEDS: Ferrous Sulfate 325 MG Tablet PO (13:30)
[2024-07-31] MEDS: 0.9% Saline Lock 10 ML Syringe IV (13:31)
--- NOTE | 2024-07-31 15:02 | CASEMGMT ---
SW sent updates to [facility] and asked that they start pre-cert. Plan: d/c back to [facility] pending pre-cert. Diane Dia MSW ARACELIS
[2024-07-31] MEDS: Cefepime HCl 0.5 GM in 0.9% Normal Saline (50mL Bag) 50 ML IV (16:42)
[2024-07-31 17:22] LABS: Bedside Glucose 222 mg/dL (74-106)
[2024-07-31] MEDS: Ipratropium/Albuterol Sulfate 3 ML AMPUL.NEB INHALATION (20:32)
[2024-07-31] MEDS: Insulin Glargine-YFGN 100 UNIT/ML Pen 10 UNIT SC (21:38)
[2024-07-31 22:30] LABS: Bedside Glucose 230 mg/dL (74-106)
[2024-08-01] VITALS (10 sets, daily range): BP systolic 103–143; BP diastolic 62–87; PULSE 89–115; RESP 16–28; TEMP 36.4–36.9; O2SAT 93–100
[2024-08-01 06:16] LABS: Absolute Lymphocyte Count 1.73 X10^3/uL (0.83-4.51); Absolute Neutrophil Count 12.7 X10^3/uL (2.0-7.7); Basophil# 0.04 X10^3/uL; Basophil% 0.2 % (0-1); Eosinophil# 0.14 X10^3/uL; Eosinophils% 0.9 % (0-5); Hematocrit 25.4 % (37-47); Hemoglobin 8.1 g/dL (12.0-15.0); Lymphocyte # 1.73 X10^3/ul (0.83-4.51); Lymphocyte % 10.6 % (19-41); Mean Corp Hgb Conc 31.9 g/dL (32-36); Mean Corpuscular Hgb 28.8 pg (27.0-32.0); Mean Corpuscular Volume 90.4 fL (81-99); Monocyte# 1.52 X10^3/uL; Monocyte% 9.3 % (0-10); NRBC Flagged by Analyzer 0 % (0-5); Neutrophil # 12.67 X10^3/uL (2.7-7.7); Neutrophil % 77.2 % (47-70); POSITIVE DIFFERENTIAL YES; Platelet Count 329 K/mm3 (150-450); RBC Distribution Width CV 15.4 % (11.6-14.6); RBC Distribution Width SD 50.7 fl (35.1-43.9); Red Blood Count 2.81 M/mm3 (4.2-5.4); White Blood Count 16.4 K/mm3 (4.4-11.0)
[2024-08-01 06:18] LABS: Differential Indicated SCAN CRITERIA MET
[2024-08-01] MEDS: dilTIAZem 60 MG Tablet PO ×2 (06:25→13:00)
[2024-08-01] MEDS: 0.9% Saline Lock 10 ML Syringe IV ×2 (06:25→10:19)
[2024-08-01 06:49] LABS: Bedside Glucose 111 mg/dL (74-106)
[2024-08-01] MEDS: Ipratropium/Albuterol Sulfate 3 ML AMPUL.NEB INHALATION (06:58)
[2024-08-01 07:25] LABS: Differential Comment SCANNED
[2024-08-01] MEDS: ChlorproMAZINE 25 MG Tablet 50 MG PO ×2 (09:32→22:17)
[2024-08-01] MEDS: Folic Acid/Vitamin B Comp W-C 1 Capsule 1 CAP PO (09:32)
[2024-08-01] MEDS: Metoprolol(XL)Succ 50 MG Tablet PO ×2 (09:32→22:18)
[2024-08-01 09:55] LABS: ALB/GLOB Ratio 0.3 RATIO (0.9-2.4); AST(SGOT) 22 U/L (15-37); Alanine Aminotransfer ALT/SGPT 27 U/L (13-56); Albumin, Serum 1.5 g/dL (3.2-5.0); Alkaline Phosphatase 126 U/L (45-117); Anion Gap 8 (5-15); BUN 27 mg/dL (7-18); BUN/Creat Ratio 14.1 RATIO (10-20); Calcium,Total 8.8 mg/dL (8.5-10.1); Chloride 104 mmol/L (98-107); Creatinine, Serum 1.92 mg/dL (0.55-1.02); EST Glomerular Filtration Rate 28 mL/min (>60); Est Glom Filt Rate - Afr Amer 34 mL/min (>60); Estimated Creatinine Clearance 31.94 ml/min; Globulin 4.7 g/dL (2.2-4.2); Glucose 112 mg/dL (74-106); Potassium 4.1 mmol/L (3.5-5.1); Protein, Total 6.2 g/dL (6.4-8.2); Sodium Level 133 mmol/L (136-145)
[2024-08-01 10:09] LABS: Haptoglobin 477 mg/dL (37-355)
[2024-08-01] MEDS: Senna/Docusate Sodium 1 Tablet 2 TABLET PO (10:18)
[2024-08-01] MEDS: Bisacodyl 5 MG Tablet 10 MG PO (10:18)
[2024-08-01] MEDS: Polyethylene Glycol 3350 17 GM PACKET PO (10:18)
[2024-08-01] MEDS: Remdesivir 100 MG in 0.9% Normal Saline (250mL Bag) 230 ML 125 MG IV (10:19)
[2024-08-01 10:22] LABS: Pathologist Review Reviewed
[2024-08-01] MEDS: Hydrocortisone 2.5% Crm 1 APPLIC TOPICAL (10:26)
[2024-08-01] MEDS: Insulin Lispro 100 UNIT/ML INSULN.PEN SC ×3 (12:57→22:09)
[2024-08-01] MEDS: Ferrous Sulfate 325 MG Tablet PO (12:57)
[2024-08-01 13:20] LABS: Bedside Glucose 206 mg/dL (74-106)
--- NOTE | 2024-08-01 13:31 | PCM.PN.ID ---
Physical Exam Narrative Feeling better, breathing improved, no fever Const alert and no apparent distress General Appearance: cooperative Resp Auscultation: diminished lung sounds Cardio regular rate and regular rhythm GI soft to palpation, non-tender and non-distended Skin no rashes or lesions noted ID ID: Route of nutrition/ use of supplements: [] Nutritional Intake: [] IV Site: [] Brothers Catheter: [] Assessment & Plan Assessment/Plan (1) COVID: PLAN: Completed 3 dose course remdesivir. On vanc/cefepime to cover recent ecoli, MRSA, strep, and PsA. Ucx now with VIE. Will change to po linezolid and cipro for 4 more days (stop date 08/05/24.) Will follow (2) ESRD on hemodialysis: (3) Acute UTI: (4) Coag negative Staphylococcus bacteremia:
--- NOTE | 2024-08-01 15:48 | PCM.PN.HOSP ---
Reason for Visit Reason for Visit: Diagnoses Other staphylococcus as the cause of diseases classified elsewhere (07/29/24) Unspecified atrial fibrillation (07/29/24) Acute kidney failure, unspecified (07/29/24) End stage renal disease (07/29/24) Urinary tract infection, site not specified (07/29/24) Bacteremia (07/29/24) COVID-19 (07/29/24) Dependence on renal dialysis (07/29/24) Objective Data Objective Data Vital Signs: Vital Signs Temp Pulse Resp BP Pulse Ox O2 Del Method 97.8 F 99 20 H 113/62 97 Room Air 08/01/24 09:35 08/01/24 09:35 08/01/24 09:35 08/01/24 09:35 08/01/24 14:00 08/01/24 09:35 Oxygen Delivery Method Room Air Weight: 218 lb 14.704 oz Body Mass Index (BMI) 38.7 Intake & Output: Intake and Output for Last 24 Hours 07/30/24 07/31/24 08/01/24 23:59 23:59 23:59 Intake Total 850.00 / 1100.00 2380.00 / 2380.00 250 / 250 Output Total 1100 / 1600 1250 / 1250 650 / 650 Balance -250 / -500.00 1130.00 / 1130.00 -400 / -400 Lab / Micro Data 08/01/24 05:35 08/01/24 05:35 Labs: Laboratory Results - last 24 hr 07/30/24 12:18: Haptoglobin 477 H 07/31/24 09:03: Blood Type O POSITIVE, Antibody Screen NEGATIVE, Crossmatch See Detail 07/31/24 16:31: POC Glucose 222 H 07/31/24 21:35: POC Glucose 230 H 08/01/24 05:35: WBC 16.4 H, RBC 2.81 L, Hgb 8.1 L, Hct 25.4 L, MCV 90.4, MCH 28.8, MCHC 31.9 L, RDW Std Deviation 50.7 H, RDW Coeff of Rolly 15.4 H, Plt Count 329, MPV 9.0, Immature Gran % (Auto) 1.800 H, Neut % (Auto) 77.2 H, Lymph % (Auto) 10.6 L, Faulkner % (Auto) 9.3, Eos % (Auto) 0.9, Baso % (Auto) 0.2, Absolute Neuts (auto) 12.7 H, Absolute Lymphs (auto) 1.73, Nucleated RBC % 0, Differential Comment SCANNED, Diff Path Review Reviewed, Sodium 133 L, Potassium 4.1, Chloride 104, Carbon Dioxide 21.0, Anion Gap 8, BUN 27 H, Creatinine 1.92 H, Estim Creat Clear Calc 31.94, Est GFR (MDRD) Af Amer 34 L, Est GFR (MDRD) Non-Af 28 L, BUN/Creatinine Ratio 14.1, Glucose 112 H, Calcium 8.8, Total Bilirubin 0.40, AST 22, ALT 27, Alkaline Phosphatase 126 H, Total Protein 6.2 L, Albumin 1.5 L, Globulin 4.7 H, Albumin/Globulin Ratio 0.3 L 08/01/24 06:25: POC Glucose 111 H 08/01/24 12:55: POC Glucose 206 H Micro: Microbiology 07/29/24 12:51 Urine Catheter - Catheter Urine Culture - Final Enterococcus faecalis 07/29/24 11:50 Blood Culture (Wb) - Anticubital Right Blood Culture - Preliminary No growth in 48 hours. 07/29/24 12:00 Mucosa - Nose SARS-CoV-2, Influenza & RSV (PCR) - Final SARS-CoV-2 (COVID 19 PCR) Rhythm Strip Rhythm Strip: A-fib Rate: 157 Ectopy: None Physical Exam Narrative Seen and examined. She states he is feeling much better. Not on oxygen. Has bilateral lower extremity swelling. Denies chest pain pressure or tightness. Has Brothers catheter. Clear urine. Physical exam General: Alert, Oriented x3, Cooperative. HEENT: Atraumatic, PERRLA, EOMI, Normocephalic Oral: No Gingival or Mucosal Lesions/ Ulcerations Neck: Supple, No JVD, Negative Carotid Bruits Chest wall/Lungs: Air entry diminished in bilateral lung bases. No crepitation/rhonchi. Right upper chest dialysis catheter. Cardiovascular: A-fib heart rate in 100s., Normal S1, Normal S2, No M/G/R Abdomen: Bowel Sounds Present, Soft, Non Tender, Non-Distended : Brothers catheter. Positive flecks in the catheter tube. No renal angle tenderness. No suprapubic tenderness. Extremities: 2+ edema, Capillary Refill Less than 3 Seconds Skin: 1 cm ulcer on posterior right thigh superficial with granulation tissue pinkish hue at the edge Musculoskeletal: No Tenderness to Palpation of Joints or Extremities Neurological: Cranial nerves II-XII grossly intact, DTR 2+/4. No acute focal neurological deficit. Psych/Mental Status: Flat affect Assessment & Plan Assessment/Plan (1) Acute UTI: (2) Atrial fibrillation with rapid ventricular response: (3) COVID: PLAN: Plan 69-year-old female was admitted from nursing facility for altered mental status and fever. Tachycardic and recently diagnosed with UTI and supposed to be started on water. But could not done so because PICC line not successful. Patient was admitted between 07/21 to 07/24 for encephalopathy A-fib with RVR and UTI. #Sepsis due to inadequately treated UTI and COVID admit to PCU patient admitted with a complaint of tachycardia and fever. Was recently in the hospital and managed for UTI. Urine cultures grew E coli. She was discharged on ertapenem with dialysis x 3. Preablation did not get the domperidone either through dialysis catheter PICC line. Mild tachycardia and tachypnea and shortness of breath. Leukocytosis with immature granulocytes more than 1% suggestive of left shift due to sepsis. Patient cannot have sepsis fluid protocol because of ESRD and shortness of breath. Chest x-ray initially reviewed. AP view. No acute consolidation or opacity but mild interstitial thickening/edema. Reported as no active disease. Blood culture pending. COVID test positive. Of note she did have wound cultures were also positive for MRSA and Pseudomonas and MRSA as well as strep. Continue IV vancomycin dosed with dialysis and Zosyn. 07/31: Patient was evaluated by ID. Continue vancomycin and cefepime to cover recent E. coli MRSA strep and Pseudomonas. After discussion with ID and nephrology seems patient did not get ertapenem in the half-way for the dialysis catheter. 08/01: Patient is stated that she is feeling much better. Completed 3 doses of remdesivir. ID follow-up appreciated. On Vanco and cefepime to cover recent E. coli, MRSA, strep and Pseudomonas. Urine culture shows VIE. Antibiotic changed to linezolid and Cipro for 4 more days, stop date 08/05/2024. #A-fib with RVR probably precipitated by sepsis: Patient also had A-fib with RVR during the last admission. Cardizem drip at 15 mg/h. Try to taper down gradually with the starting oral Cardizem and metoprolol succinate. Eliquis held because of severe anemia hemoglobin 7.6 07/31: Heart rate is better controlled. Metoprolol dose increased to 50 mg p.o. twice daily. Heart rate is better controlled than yesterday. 08/01: Heart rate in 100s. Cardizem 60 mg every 8 hourly changed to Cardizem CD 240 mg daily. #COVID-19 infection: Patient currently on room air. She is septic and this could also be attributed to the COVID though it does seem like it may be more due to her inadequately treated UTI and thigh wound. Start Decadron 6 mg daily IV. 07/31: Started on remdesivir, 3 course yesterday 08/01: Patient completed 3 days of remdesivir. #ESRD on hemodialysis: Consult nephrology. On dialysis Wednesdays and Fridays. 07/31: Discussed with the inner diameter grinder tool. Holding of dialysis. 08/01: UTI due to VRE: On linezolid. # Acute anemia with history of chronic anemia: Hemoglobin dropped to 7.6 from 10.4 yesterday. Baseline is between 8 to 9 g%. MCV normal. RDW upper limit normal. Platelet count normal. Patient had iron workup on 07/22/2024 which shows serum iron 16, TIBC normal, iron saturation low suggestive of anemia of chronic disease. Ferritin high in the 100. 07/31: 1 unit PRBC transfusion ordered. She required transfusion during previous hospitalization also. 08/01: Immature reticulocyte fraction is high at 18.1%, haptoglobin elevated. LDH normal. Total bilirubin normal. Not consistent with complete picture of hemolytic anemia. #History of DVT and right lower extremity hematoma This was during a recent admission at [facility]. 07/31: Eliquis discontinued because of severe anemia. #Type 2 diabetes mellitus: On Lantus 10 units daily. Insulin sliding scale. Accu-Cheks ACHS. DVT prophylaxis: Already on Eliquis CODE STATUS: full code Patient, and brother counseled extensively about different types of CODE STATUS including full code, DNR CCA and DNR CCA. Patient elects to be full code. Total time of the visit including total time spent in counseling or coordination of care, (more than 50% of the total time, spent in obtaining medical information from nurses and other ancillary care providers,explaining to the patient about labs, imaging, diagnosis and management of active complex medical conditions), multiple complex medical conditions including sepsis, A-fib RVR, severe anemia, ESRD on hemodialysis, review of labs and imaging is 40 minutes. Microbiology Past 72 Hours 07/29/24 12:51 Urine Catheter - Catheter Urine Culture - Final Enterococcus faecalis 07/29/24 11:50 Blood Culture (Wb) - Anticubital Right Blood Culture - Preliminary No growth in 48 hours. 07/29/24 12:00 Mucosa - Nose SARS-CoV-2, Influenza & RSV (PCR) - Final SARS-CoV-2 (COVID 19 PCR) Laboratory Results 07/30/24 12:18: Haptoglobin 477 H 07/31/24 09:03: Blood Type O POSITIVE, Antibody Screen NEGATIVE, Crossmatch See Detail 07/31/24 16:31: POC Glucose 222 H 07/31/24 21:35: POC Glucose 230 H 08/01/24 05:35: WBC 16.4 H, RBC 2.81 L, Hgb 8.1 L, Hct 25.4 L, MCV 90.4, MCH 28.8, MCHC 31.9 L, RDW Std Deviation 50.7 H, RDW Coeff of Rolly 15.4 H, Plt Count 329, MPV 9.0, Immature Gran % (Auto) 1.800 H, Neut % (Auto) 77.2 H, Lymph % (Auto) 10.6 L, Faulkner % (Auto) 9.3, Eos % (Auto) 0.9, Baso % (Auto) 0.2, Absolute Neuts (auto) 12.7 H, Absolute Lymphs (auto) 1.73, Nucleated RBC % 0, Differential Comment SCANNED, Diff Path Review Reviewed, Sodium 133 L, Potassium 4.1, Chloride 104, Carbon Dioxide 21.0, Anion Gap 8, BUN 27 H, Creatinine 1.92 H, Estim Creat Clear Calc 31.94, Est GFR (MDRD) Af Amer 34 L, Est GFR (MDRD) Non-Af 28 L, BUN/Creatinine Ratio 14.1, Glucose 112 H, Calcium 8.8, Total Bilirubin 0.40, AST 22, ALT 27, Alkaline Phosphatase 126 H, Total Protein 6.2 L, Albumin 1.5 L, Globulin 4.7 H, Albumin/Globulin Ratio 0.3 L 08/01/24 06:25: POC Glucose 111 H 08/01/24 12:55: POC Glucose 206 H Charges/Coding Visit Charges Inpatient E&M: 30743 Subs Hosp L2
--- NOTE | 2024-08-01 16:17 | PN.RENAL_ITS ---
Subjective Subjective no new events Objective Data Objective Data Vital Signs: Vital Signs Temp Pulse Resp BP Pulse Ox O2 Del Method 97.8 F 99 20 H 113/62 97 Room Air 08/01/24 09:35 08/01/24 09:35 08/01/24 09:35 08/01/24 09:35 08/01/24 14:00 08/01/24 09:35 Oxygen Delivery Method Room Air Weight: 99.3 kg Body Mass Index (BMI) 38.7 Intake & Output: Intake and Output for Last 24 Hours 07/30/24 07/31/24 08/01/24 23:59 23:59 23:59 Intake Total 850.00 / 1100.00 2380.00 / 2380.00 250 / 250 Output Total 1100 / 1600 1250 / 1250 650 / 650 Balance -250 / -500.00 1130.00 / 1130.00 -400 / -400 Lab / Micro Data 08/01/24 05:35 08/01/24 05:35 Labs: Laboratory Results - last 24 hr 07/30/24 12:18: Haptoglobin 477 H 07/31/24 09:03: Blood Type O POSITIVE, Antibody Screen NEGATIVE, Crossmatch See Detail 07/31/24 16:31: POC Glucose 222 H 07/31/24 21:35: POC Glucose 230 H 08/01/24 05:35: WBC 16.4 H, RBC 2.81 L, Hgb 8.1 L, Hct 25.4 L, MCV 90.4, MCH 28.8, MCHC 31.9 L, RDW Std Deviation 50.7 H, RDW Coeff of Rolly 15.4 H, Plt Count 329, MPV 9.0, Immature Gran % (Auto) 1.800 H, Neut % (Auto) 77.2 H, Lymph % (Auto) 10.6 L, Placer % (Auto) 9.3, Eos % (Auto) 0.9, Baso % (Auto) 0.2, Absolute Neuts (auto) 12.7 H, Absolute Lymphs (auto) 1.73, Nucleated RBC % 0, Differential Comment SCANNED, Diff Path Review Reviewed, Sodium 133 L, Potassium 4.1, Chloride 104, Carbon Dioxide 21.0, Anion Gap 8, BUN 27 H, Creatinine 1.92 H , Estim Creat Clear Calc 31.94, Est GFR (MDRD) Af Amer 34 L, Est GFR (MDRD) Non- Af 28 L, BUN/Creatinine Ratio 14.1, Glucose 112 H, Calcium 8.8, Total Bilirubin 0.40, AST 22, ALT 27, Alkaline Phosphatase 126 H, Total Protein 6.2 L, Albumin 1.5 L, Globulin 4.7 H, Albumin/Globulin Ratio 0.3 L 08/01/24 06:25: POC Glucose 111 H 08/01/24 12:55: POC Glucose 206 H Micro: Microbiology 07/29/24 12:51 Urine Catheter - Catheter Urine Culture - Final Enterococcus faecalis 07/29/24 11:50 Blood Culture (Wb) - Anticubital Right Blood Culture - Preliminary No growth in 48 hours. 07/29/24 12:00 Mucosa - Nose SARS-CoV-2, Influenza & RSV (PCR) - Final SARS-CoV-2 (COVID 19 PCR) Rhythm Strip Rhythm Strip: A-fib Rate: 157 Ectopy: None Physical Exam Narrative alert awake comfortable s1s2 LS clear, on RA trace non-pitting edema b/l legs tunneled HD catheter dressing C/D/I sanchez clear urine in bag Assessment & Plan Assessment/Plan (1) Acute kidney injury: PLAN: - Dialysis requiring acute kidney injury secondary to ATN with unknown baseline creatinine. Started on hemodialysis at [facility] and has been on hemodialysis ~ 2 months. Last hemodialysis was at kidney center on July 25. Patient has not had dialysis since then. There has been some noted renal recovery, SCr 1.9mg/dL last 2 days. Urine output has picked up. Hold off on any renal replacement therapy today. can have tunneled hemodialysis catheter removed. - Recent infections requiring ertapenem. COVID-positive. Antibiotics per ID; currently receiving remdesivir, cefepime and vancomycin. If patient needs long- term IV antibiotics suggest PICC line placement. Given JAILYN recommend close monitoring of Vanco levels. -A-fib; blood pressures acceptable on on Cardizem, Toprol
[2024-08-01] MEDS: dilTIAZem CD 240 MG Capsule PO (16:49)
[2024-08-01 17:22] LABS: Bedside Glucose 216 mg/dL (74-106)
[2024-08-01] MEDS: Acetaminophen 325 MG Tablet 650 MG PO (19:01)
[2024-08-01] MEDS: Insulin Glargine-YFGN 100 UNIT/ML Pen 10 UNIT SC (22:09)
[2024-08-01] MEDS: Ciprofloxacin 500 MG Tablet PO (22:10)
[2024-08-01] MEDS: Linezolid 600 MG Tablet PO (22:23)
[2024-08-01 22:43] LABS: Bedside Glucose 247 mg/dL (74-106)
[2024-08-02] VITALS (7 sets, daily range): BP systolic 98–110; BP diastolic 54–79; PULSE 63–90; RESP 18–20; TEMP 36.1–36.7; O2SAT 94–99
[2024-08-02 06:39] LABS: Absolute Lymphocyte Count 2.26 X10^3/uL (0.83-4.51); Absolute Neutrophil Count 14.6 X10^3/uL (2.0-7.7); Basophil# 0.05 X10^3/uL; Basophil% 0.3 % (0-1); Eosinophil# 0.17 X10^3/uL; Eosinophils% 0.9 % (0-5); Hemoglobin 7.8 g/dL (12.0-15.0); Lymphocyte # 2.26 X10^3/ul (0.83-4.51); Lymphocyte % 11.9 % (19-41); Mean Corp Hgb Conc 31.2 g/dL (32-36); Mean Corpuscular Hgb 28.8 pg (27.0-32.0); Mean Corpuscular Volume 92.3 fL (81-99); Mean Platelet Vol. 9.3 fl (6.2-12.0); Monocyte# 1.56 X10^3/uL; Monocyte% 8.2 % (0-10); NRBC Flagged by Analyzer 0 % (0-5); Neutrophil # 14.57 X10^3/uL (2.7-7.7); Neutrophil % 76.9 % (47-70); POSITIVE DIFFERENTIAL YES; Platelet Count 338 K/mm3 (150-450); RBC Distribution Width CV 15.4 % (11.6-14.6); RBC Distribution Width SD 51.4 fl (35.1-43.9); Red Blood Count 2.71 M/mm3 (4.2-5.4)
[2024-08-02 06:47] LABS: Differential Indicated SCAN CRITERIA MET
[2024-08-02 06:55] LABS: Bedside Glucose 131 mg/dL (74-106)
[2024-08-02 06:59] LABS: Anion Gap 10 (5-15); BUN 28 mg/dL (7-18); BUN/Creat Ratio 14.7 RATIO (10-20); Calcium,Total 8.6 mg/dL (8.5-10.1); Chloride 103 mmol/L (98-107); EST Glomerular Filtration Rate 28 mL/min (>60); Est Glom Filt Rate - Afr Amer 34 mL/min (>60); Estimated Creatinine Clearance 32.28 ml/min; Glucose 143 mg/dL (74-106); Potassium 3.8 mmol/L (3.5-5.1); Sodium Level 135 mmol/L (136-145)
[2024-08-02 08:22] LABS: Differential Comment SCANNED; Platelet Estimate ADEQUATE (ADEQ); Red Cell Morphology NORM C+C NORMAL (NORM C&C)
[2024-08-02] MEDS: Linezolid 600 MG Tablet PO ×2 (08:36→21:50)
[2024-08-02] MEDS: Folic Acid/Vitamin B Comp W-C 1 Capsule 1 CAP PO (08:37)
[2024-08-02] MEDS: Senna/Docusate Sodium 1 Tablet 2 TABLET PO (08:37)
[2024-08-02] MEDS: Furosemide 40 MG Tablet PO ×2 (08:37→17:10)
[2024-08-02] MEDS: ChlorproMAZINE 25 MG Tablet 50 MG PO ×2 (08:37→21:49)
[2024-08-02] MEDS: Metoprolol(XL)Succ 50 MG Tablet PO ×2 (08:38→21:49)
[2024-08-02] MEDS: Polyethylene Glycol 3350 17 GM PACKET PO (08:38)
[2024-08-02] MEDS: dilTIAZem CD 240 MG Capsule PO (08:38)
[2024-08-02] MEDS: Insulin Lispro 100 UNIT/ML INSULN.PEN SC ×3 (11:48→21:52)
[2024-08-02] MEDS: Ferrous Sulfate 325 MG Tablet PO (11:49)
[2024-08-02 12:12] LABS: Bedside Glucose 160 mg/dL (74-106)
--- NOTE | 2024-08-02 12:28 | PN.HOSP_ITS ---
Reason for Visit Reason for Visit: Diagnoses Other staphylococcus as the cause of diseases classified elsewhere (07/29/24) Unspecified atrial fibrillation (07/29/24) Acute kidney failure, unspecified (07/29/24) End stage renal disease (07/29/24) Urinary tract infection, site not specified (07/29/24) Bacteremia (07/29/24) COVID-19 (07/29/24) Dependence on renal dialysis (07/29/24) Objective Data Objective Data Vital Signs: Vital Signs Temp Pulse Resp BP Pulse Ox O2 Del Method 97.7 F L 88 20 H 105/55 L 94 Room Air 08/02/24 08:34 08/02/24 08:38 08/02/24 08:34 08/02/24 08:34 08/02/24 08:34 08/02/24 09:28 Oxygen Delivery Method Room Air Weight: 218 lb 14.704 oz Body Mass Index (BMI) 38.7 Intake & Output: Intake and Output for Last 24 Hours 07/31/24 08/01/24 08/02/24 23:59 23:59 23:59 Intake Total 2380.00 / 2380.00 1405 / 1525 240 / 240 Output Total 1250 / 1250 1550 / 1550 800 / 800 Balance 1130.00 / 1130.00 -145 / -25 -560 / -560 Lab / Micro Data 08/02/24 04:25 08/02/24 04:25 Labs: Laboratory Results - last 24 hr 08/01/24 12:55: POC Glucose 206 H 08/01/24 16:47: POC Glucose 216 H 08/01/24 22:01: POC Glucose 247 H 08/02/24 04:25: WBC 19.0 H, RBC 2.71 L, Hgb 7.8 L, Hct 25.0 L, MCV 92.3, MCH 28.8, MCHC 31.2 L, RDW Std Deviation 51.4 H, RDW Coeff of Rolly 15.4 H, Plt Count 338, MPV 9.3, Immature Gran % (Auto) 1.800 H, Neut % (Auto) 76.9 H, Lymph % (Auto) 11.9 L, Moffat % (Auto) 8.2, Eos % (Auto) 0.9, Baso % (Auto) 0.3, Absolute Neuts (auto) 14.6 H, Absolute Lymphs (auto) 2.26, Nucleated RBC % 0, Differential Comment SCANNED, Diff Path Review May foll, Platelet Estimate ADEQUATE, RBC Morphology NORM C+C, Sodium 135 L, Potassium 3.8, Chloride 103, Carbon Dioxide 22.0, Anion Gap 10, BUN 28 H, Creatinine 1.90 H, Estim Creat Clear Calc 32.28, Est GFR (MDRD) Af Amer 34 L, Est GFR (MDRD) Non-Af 28 L, BUN/Creatinine Ratio 14.7, Glucose 143 H, Calcium 8.6 08/02/24 06:35: POC Glucose 131 H 08/02/24 11:46: POC Glucose 160 H Micro: Microbiology 07/29/24 12:51 Urine Catheter - Catheter Urine Culture - Final Enterococcus faecalis 07/29/24 11:50 Blood Culture (Wb) - Anticubital Right Blood Culture - Preliminary No growth in 48 hours. 07/29/24 12:00 Mucosa - Nose SARS-CoV-2, Influenza & RSV (PCR) - Final SARS-CoV-2 (COVID 19 PCR) Rhythm Strip Rhythm Strip: A-fib Rate: 157 Ectopy: None Physical Exam Narrative Seen and examined. Patient is feeling better. Still weak and tired. Not on oxygen. Her is near the bedside. Has bilateral lower extremity swelling. Denies chest pain pressure or tightness. Has Brothers catheter. Clear urine. Physical exam General: Alert, Oriented x3, Cooperative. HEENT: Atraumatic, PERRLA, EOMI, Normocephalic Oral: No Gingival or Mucosal Lesions/ Ulcerations Neck: Supple, No JVD, Negative Carotid Bruits Chest wall/Lungs: Air entry diminished in bilateral lung bases. No crepitation/rhonchi. Right upper chest dialysis catheter. Cardiovascular: A-fib heart rate in 100s., Normal S1, Normal S2, No M/G/R Abdomen: Bowel Sounds Present, Soft, Non Tender, Non-Distended : Brothers catheter. dialysis on hold, monitoring urine output no renal angle tenderness. No suprapubic tenderness. Extremities: 2+ edema, Capillary Refill Less than 3 Seconds Skin: 1 cm ulcer on posterior right thigh superficial with granulation tissue pinkish hue at the edge Musculoskeletal: No Tenderness to Palpation of Joints or Extremities Neurological: Cranial nerves II-XII grossly intact, DTR 2+/4. No acute focal neurological deficit. Psych/Mental Status: Flat affect Assessment & Plan Assessment/Plan (1) Acute UTI: (2) Atrial fibrillation with rapid ventricular response: (3) COVID: PLAN: Plan 69-year-old female was admitted from nursing facility for altered mental status and fever. Tachycardic and recently diagnosed with UTI and supposed to be started on water. But could not done so because PICC line not successful. Patient was admitted between 07/21 to 07/24 for encephalopathy A-fib with RVR and UTI. #Sepsis due to inadequately treated UTI and COVID * admit to PCU * patient admitted with a complaint of tachycardia and fever. Was recently in the hospital and managed for UTI. Urine cultures grew E coli. She was discharged on ertapenem with dialysis x 3. Preablation did not get the domperidone either through dialysis catheter PICC line. * Mild tachycardia and tachypnea and shortness of breath. Leukocytosis with immature granulocytes more than 1% suggestive of left shift due to sepsis. Patient cannot have sepsis fluid protocol because of ESRD and shortness of breath. Chest x-ray initially reviewed. AP view. No acute consolidation or opacity but mild interstitial thickening/edema. Reported as no active disease. * Blood culture pending. COVID test positive. * Of note she did have wound cultures were also positive for MRSA and Pseudomonas and MRSA as well as strep. * Continue IV vancomycin dosed with dialysis and Zosyn. 07/31: Patient was evaluated by ID. Continue vancomycin and cefepime to cover recent E. coli MRSA strep and Pseudomonas. After discussion with ID and nephrology seems patient did not get ertapenem in the snf for the dialysis catheter. 08/01: Patient is stated that she is feeling much better. Completed 3 doses of remdesivir. ID follow-up appreciated. On Vanco and cefepime to cover recent E. coli, MRSA, strep and Pseudomonas. Urine culture shows VIE. Antibiotic changed to linezolid and Cipro for 4 more days, stop date 08/05/2024. 08/02: Overall pending pre-CERT for discharge to snf. #A-fib with RVR probably precipitated by sepsis: * Patient also had A-fib with RVR during the last admission. * Cardizem drip at 15 mg/h. Try to taper down gradually with the starting oral Cardizem and metoprolol succinate. * Eliquis held because of severe anemia hemoglobin 7.6 07/31: Heart rate is better controlled. Metoprolol dose increased to 50 mg p.o. twice daily. Heart rate is better controlled than yesterday. 08/01: Heart rate in 100s. Cardizem 60 mg every 8 hourly changed to Cardizem CD 240 mg daily. 08/02: heart rate is better controlled in the 80s to 90/min. A-fib #COVID-19 infection: * Patient currently on room air. * She is septic and this could also be attributed to the COVID though it does seem like it may be more due to her inadequately treated UTI and thigh wound. * Start Decadron 6 mg daily IV. 07/31: Started on remdesivir, 3 course yesterday 08/01: Patient completed 3 days of remdesivir. #ESRD on hemodialysis: Consult nephrology. On dialysis Wednesdays and Fridays. 07/31: Discussed with the chemical dependency attendant. Holding of dialysis. 08/01: UTI due to VRE: On linezolid. 08/02: Urine output 5050 mL 08/01, 1250 mL on 07/31. 800 mL so far today. Has Brothers catheter. Urine clear. Kidney function is stable at 1.9. # Acute anemia with history of chronic anemia: Hemoglobin dropped to 7.6 from 10.4 yesterday. Baseline is between 8 to 9 g%. MCV normal. RDW upper limit normal. Platelet count normal. Patient had iron workup on 07/22/2024 which shows serum iron 16, TIBC normal, iron saturation low suggestive of anemia of chronic disease. Ferritin high in the 100. 07/31: 1 unit PRBC transfusion ordered. She required transfusion during previous hospitalization also. 08/01: Immature reticulocyte fraction is high at 18.1%, haptoglobin elevated. LDH normal. Total bilirubin normal. Not consistent with complete picture of hemolytic anemia. 08/02: H&H 7.8/25%. #History of DVT and right lower extremity hematoma * This was during a recent admission at [facility]. 07/31: Eliquis discontinued because of severe anemia. #Type 2 diabetes mellitus: On Lantus 10 units daily. Insulin sliding scale. Accu-Cheks ACHS. DVT prophylaxis: Already on Eliquis CODE STATUS: full code * Patient, and brother counseled extensively about different types of CODE STATUS including full code, DNR CCA and DNR CCA. Patient elects to be full code. Total time of the visit including total time spent in counseling or coordination of care, (more than 50% of the total time, spent in obtaining medical information from nurses and other ancillary care providers,explaining to the patient about labs, imaging, diagnosis and management of active complex medical conditions), multiple complex medical conditions including sepsis, A-fib RVR, severe anemia, ESRD on hemodialysis, review of labs and imaging is 40 minutes. Charges/Coding Visit Charges Inpatient E&M: 33494 Subs Hosp L2
[2024-08-02] MEDS: 0.9% Saline Lock 10 ML Syringe IV ×2 (15:33→21:50)
[2024-08-02] MEDS: Remdesivir 100 MG in 0.9% Normal Saline (250mL Bag) 230 ML 250 MG IV (15:33)
[2024-08-02 16:00] LABS: Bedside Glucose 200 mg/dL (74-106)
[2024-08-02] MEDS: Acetaminophen 325 MG Tablet 650 MG PO (17:10)
[2024-08-02] MEDS: Ipratropium/Albuterol Sulfate 3 ML AMPUL.NEB INHALATION (20:20)
[2024-08-02] MEDS: Ciprofloxacin 500 MG Tablet PO (21:50)
[2024-08-02] MEDS: Insulin Glargine-YFGN 100 UNIT/ML Pen 10 UNIT SC (21:52)
[2024-08-03] VITALS (9 sets, daily range): BP systolic 97–118; BP diastolic 58–66; PULSE 67–90; RESP 16–24; TEMP 36.3–36.9; O2SAT 95–97
[2024-08-03 05:27] LABS: Bedside Glucose 168 mg/dL (74-106)
[2024-08-03 06:34] LABS: Basophil# 0.04 X10^3/uL; Basophil% 0.3 % (0-1); Eosinophil# 0.24 X10^3/uL; Eosinophils% 1.7 % (0-5); Hematocrit 25.9 % (37-47); Lymphocyte % 9.9 % (19-41); Mean Corp Hgb Conc 30.9 g/dL (32-36); Mean Corpuscular Hgb 28.4 pg (27.0-32.0); Mean Corpuscular Volume 91.8 fL (81-99); Mean Platelet Vol. 9.5 fl (6.2-12.0); Monocyte# 1.12 X10^3/uL; Monocyte% 7.9 % (0-10); NRBC Flagged by Analyzer 0 % (0-5); Neutrophil # 10.96 X10^3/uL (2.7-7.7); Neutrophil % 77.6 % (47-70); Platelet Count 354 K/mm3 (150-450); RBC Distribution Width CV 15.2 % (11.6-14.6); RBC Distribution Width SD 50.5 fl (35.1-43.9); Red Blood Count 2.82 M/mm3 (4.2-5.4); White Blood Count 14.1 K/mm3 (4.4-11.0)
[2024-08-03 06:52] LABS: Bedside Glucose 148 mg/dL (74-106)
[2024-08-03 07:03] LABS: ALB/GLOB Ratio 0.3 RATIO (0.9-2.4); AST(SGOT) 15 U/L (15-37); Alanine Aminotransfer ALT/SGPT 21 U/L (13-56); Albumin, Serum 1.5 g/dL (3.2-5.0); Alkaline Phosphatase 120 U/L (45-117); Anion Gap 8 (5-15); BUN 34 mg/dL (7-18); BUN/Creat Ratio 17.8 RATIO (10-20); Calcium,Total 8.4 mg/dL (8.5-10.1); Chloride 104 mmol/L (98-107); Creatinine, Serum 1.91 mg/dL (0.55-1.02); EST Glomerular Filtration Rate 28 mL/min (>60); Est Glom Filt Rate - Afr Amer 34 mL/min (>60); Estimated Creatinine Clearance 32.11 ml/min; Globulin 4.7 g/dL (2.2-4.2); Glucose 162 mg/dL (74-106); Potassium 3.9 mmol/L (3.5-5.1); Protein, Total 6.2 g/dL (6.4-8.2); Sodium Level 133 mmol/L (136-145)
[2024-08-03] MEDS: Ipratropium/Albuterol Sulfate 3 ML AMPUL.NEB INHALATION ×2 (07:49→20:03)
[2024-08-03] MEDS: Metoprolol(XL)Succ 50 MG Tablet PO ×2 (09:37→22:15)
[2024-08-03] MEDS: Folic Acid/Vitamin B Comp W-C 1 Capsule 1 CAP PO (09:37)
[2024-08-03] MEDS: Linezolid 600 MG Tablet PO ×2 (09:37→22:15)
[2024-08-03] MEDS: Furosemide 40 MG Tablet PO ×2 (09:37→17:38)
[2024-08-03] MEDS: ChlorproMAZINE 25 MG Tablet 50 MG PO ×2 (09:38→22:15)
[2024-08-03] MEDS: Hydrocortisone 2.5% Crm 1 APPLIC TOPICAL (09:39)
[2024-08-03] MEDS: dilTIAZem CD 240 MG Capsule PO (11:12)
[2024-08-03] MEDS: Insulin Lispro 100 UNIT/ML INSULN.PEN SC ×3 (11:12→22:17)
[2024-08-03 11:37] LABS: Bedside Glucose 222 mg/dL (74-106)
--- NOTE | 2024-08-03 14:02 | PN.HOSP_ITS ---
Reason for Visit Reason for Visit: Diagnoses Other staphylococcus as the cause of diseases classified elsewhere (07/29/24) Unspecified atrial fibrillation (07/29/24) Acute kidney failure, unspecified (07/29/24) End stage renal disease (07/29/24) Urinary tract infection, site not specified (07/29/24) Bacteremia (07/29/24) COVID-19 (07/29/24) Dependence on renal dialysis (07/29/24) Objective Data Objective Data Vital Signs: Vital Signs Temp Pulse Resp BP Pulse Ox O2 Del Method 97.3 F L 86 18 103/61 95 Room Air 08/03/24 09:33 08/03/24 09:37 08/03/24 09:33 08/03/24 11:13 08/03/24 09:33 08/03/24 10:00 Oxygen Delivery Method Room Air Weight: 218 lb 14.704 oz Body Mass Index (BMI) 38.7 Intake & Output: Intake and Output for Last 24 Hours 08/01/24 08/02/24 08/03/24 23:59 23:59 23:59 Intake Total 1405 / 1525 990 / 990 200 / 200 Output Total 1550 / 1550 2050 / 2050 1800 / 1800 Balance -145 / -25 -1060 / -1060 -1600 / -1600 Lab / Micro Data 08/03/24 04:55 08/03/24 04:55 Labs: Laboratory Results - last 24 hr 08/02/24 15:31: POC Glucose 200 H 08/02/24 21:48: POC Glucose 168 H 08/03/24 04:55: WBC 14.1 H, RBC 2.82 L, Hgb 8.0 L, Hct 25.9 L, MCV 91.8, MCH 28.4, MCHC 30.9 L, RDW Std Deviation 50.5 H, RDW Coeff of Rolly 15.2 H, Plt Count 354, MPV 9.5, Immature Gran % (Auto) 2.600 H, Neut % (Auto) 77.6 H, Lymph % (Auto) 9.9 L, Mills % (Auto) 7.9, Eos % (Auto) 1.7, Baso % (Auto) 0.3, Absolute Neuts (auto) 11.0 H, Absolute Lymphs (auto) 1.40, Nucleated RBC % 0, Sodium 133 L, Potassium 3.9, Chloride 104, Carbon Dioxide 21.0, Anion Gap 8, BUN 34 H, C reatinine 1.91 H, Estim Creat Clear Calc 32.11, Est GFR (MDRD) Af Amer 34 L, Est GFR (MDRD) Non-Af 28 L, BUN/Creatinine Ratio 17.8, Glucose 162 H, Calcium 8.4 L, Total Bilirubin 0.20, AST 15, ALT 21, Alkaline Phosphatase 120 H, Total Protein 6.2 L, Albumin 1.5 L, Globulin 4.7 H, Albumin/Globulin Ratio 0.3 L 08/03/24 06:24: POC Glucose 148 H 08/03/24 11:10: POC Glucose 222 H Micro: Microbiology 07/29/24 11:50 Blood Culture (Wb) - Anticubital Right Blood Culture - Final No growth in 5 days. 07/29/24 12:51 Urine Catheter - Catheter Urine Culture - Final Enterococcus faecalis 07/29/24 12:00 Mucosa - Nose SARS-CoV-2, Influenza & RSV (PCR) - Final SARS-CoV-2 (COVID 19 PCR) Rhythm Strip Rhythm Strip: A-fib Rate: 157 Ectopy: None Physical Exam Narrative Seen and examined. Patient is feeling better. Still weak and tired. Not on oxygen. Has bilateral lower extremity swelling. Denies chest pain pressure or tightness. Has Brothers catheter. Clear urine. Physical exam General: Alert, Oriented x3, Cooperative. HEENT: Atraumatic, PERRLA, EOMI, Normocephalic Oral: No Gingival or Mucosal Lesions/ Ulcerations Neck: Supple, No JVD, Negative Carotid Bruits Chest wall/Lungs: Air entry diminished in bilateral lung bases. No crepitation/rhonchi. Right upper chest dialysis catheter. Cardiovascular: A-fib heart rate in 100s., Normal S1, Normal S2, No M/G/R Abdomen: Bowel Sounds Present, Soft, Non Tender, Non-Distended : Brothers catheter. dialysis on hold, monitoring urine output no renal angle tenderness. No suprapubic tenderness. Extremities: 2+ edema, Capillary Refill Less than 3 Seconds Skin: Has some purulent drainage from the ulcer. 1 cm ulcer on posterior right thigh superficial, with granulation and purulence. Musculoskeletal: No Tenderness to Palpation of Joints or Extremities Neurological: Cranial nerves II-XII grossly intact, DTR 2+/4. No acute focal neurological deficit. Psych/Mental Status: Flat affect Assessment & Plan Assessment/Plan (1) Acute UTI: (2) Atrial fibrillation with rapid ventricular response: (3) COVID: PLAN: Plan 69-year-old female was admitted from nursing facility for altered mental status and fever. Tachycardic and recently diagnosed with UTI and supposed to be started on water. But could not done so because PICC line not successful. Patient was admitted between 07/21 to 07/24 for encephalopathy A-fib with RVR and UTI. #Sepsis due to inadequately treated UTI and COVID * admit to PCU * patient admitted with a complaint of tachycardia and fever. Was recently in the hospital and managed for UTI. Urine cultures grew E coli. She was discharged on ertapenem with dialysis x 3. Preablation did not get the domperidone either through dialysis catheter PICC line. * Mild tachycardia and tachypnea and shortness of breath. Leukocytosis with immature granulocytes more than 1% suggestive of left shift due to sepsis. Patient cannot have sepsis fluid protocol because of ESRD and shortness of breath. Chest x-ray initially reviewed. AP view. No acute consolidation or opacity but mild interstitial thickening/edema. Reported as no active disease. * Blood culture pending. COVID test positive. * Of note she did have wound cultures were also positive for MRSA and Pseudomonas and MRSA as well as strep. * Continue IV vancomycin dosed with dialysis and Zosyn. 07/31: Patient was evaluated by ID. Continue vancomycin and cefepime to cover recent E. coli MRSA strep and Pseudomonas. After discussion with ID and nephrology seems patient did not get ertapenem in the long-term for the dialysis catheter. 08/01: Patient is stated that she is feeling much better. Completed 3 doses of remdesivir. ID follow-up appreciated. On Vanco and cefepime to cover recent E. coli, MRSA, strep and Pseudomonas. Urine culture shows VIE. Antibiotic changed to linezolid and Cipro for 4 more days, stop date 08/05/2024. 08/02: Overall pending pre-CERT for discharge to long-term. 08/03: Blood culture negative for 5 days. Urine culture shows Enterococcus faecalis, as mentioned above. Pending pre-CERT. Microbiology Past 72 Hours 07/29/24 11:50 Blood Culture (Wb) - Anticubital Right Blood Culture - Final No growth in 5 days. 07/29/24 12:51 Urine Catheter - Catheter Urine Culture - Final Enterococcus faecalis Laboratory Results 08/02/24 15:31: POC Glucose 200 H 08/02/24 21:48: POC Glucose 168 H 08/03/24 04:55: WBC 14.1 H, RBC 2.82 L, Hgb 8.0 L, Hct 25.9 L, MCV 91.8, MCH 28.4, MCHC 30.9 L, RDW Std Deviation 50.5 H, RDW Coeff of Rolly 15.2 H, Plt Count 354, MPV 9.5, Immature Gran % (Auto) 2.600 H, Neut % (Auto) 77.6 H, Lymph % (Auto) 9.9 L, Mills % (Auto) 7.9, Eos % (Auto) 1.7, Baso % (Auto) 0.3, Absolute Neuts (auto) 11.0 H, Absolute Lymphs (auto) 1.40, Nucleated RBC % 0, Sodium 133 L, Potassium 3.9, Chloride 104, Carbon Dioxide 21.0, Anion Gap 8, BUN 34 H, C reatinine 1.91 H, Estim Creat Clear Calc 32.11, Est GFR (MDRD) Af Amer 34 L, Est GFR (MDRD) Non-Af 28 L, BUN/Creatinine Ratio 17.8, Glucose 162 H, Calcium 8.4 L, Total Bilirubin 0.20, AST 15, ALT 21, Alkaline Phosphatase 120 H, Total Protein 6.2 L, Albumin 1.5 L, Globulin 4.7 H, Albumin/Globulin Ratio 0.3 L 08/03/24 06:24: POC Glucose 148 H 08/03/24 11:10: POC Glucose 222 H #A-fib with RVR probably precipitated by sepsis: * Patient also had A-fib with RVR during the last admission. * Cardizem drip at 15 mg/h. Try to taper down gradually with the starting oral Cardizem and metoprolol succinate. * Eliquis held because of severe anemia hemoglobin 7.6 07/31: Heart rate is better controlled. Metoprolol dose increased to 50 mg p.o. twice daily. Heart rate is better controlled than yesterday. 08/01: Heart rate in 100s. Cardizem 60 mg every 8 hourly changed to Cardizem CD 240 mg daily. 08/02: heart rate is better controlled in the 80s to 90/min. A-fib 08/03: Heart rate is controlled. Continue of dyspnea. #COVID-19 infection: * Patient currently on room air. * She is septic and this could also be attributed to the COVID though it does seem like it may be more due to her inadequately treated UTI and thigh wound. * Start Decadron 6 mg daily IV. 07/31: Started on remdesivir, 3 course yesterday 08/01: Patient completed 3 days of remdesivir. #ESRD on hemodialysis: Consult nephrology. On dialysis Wednesdays and Fridays. 07/31: Discussed with the electrical design technician. Holding of dialysis. 08/01: UTI due to VRE: On linezolid. 08/02: Urine output 5050 mL 08/01, 1250 mL on 07/31. 800 mL so far today. Has Brothers catheter. Urine clear. Kidney function is stable at 1.9. 08/03: Kidney function is on baseline. Creatinine 1.9 since admission. # Acute anemia with history of chronic anemia: Hemoglobin dropped to 7.6 from 10.4 yesterday. Baseline is between 8 to 9 g%. MCV normal. RDW upper limit normal. Platelet count normal. Patient had iron workup on 07/22/2024 which shows serum iron 16, TIBC normal, iron saturation low suggestive of anemia of chronic disease. Ferritin high in the 100. 07/31: 1 unit PRBC transfusion ordered. She required transfusion during previous hospitalization also. 08/01: Immature reticulocyte fraction is high at 18.1%, haptoglobin elevated. LDH normal. Total bilirubin normal. Not consistent with complete picture of hemolytic anemia. 08/02: H&H 7.8/25%. 08/03: H&H 8.0/26%. #History of DVT and right lower extremity hematoma * This was during a recent admission at [facility]. 07/31: Eliquis discontinued because of severe anemia. #Type 2 diabetes mellitus: On Lantus 10 units daily. Insulin sliding scale. Accu-Cheks ACHS. DVT prophylaxis: Already on Eliquis CODE STATUS: full code * Patient, and brother counseled extensively about different types of CODE STATUS including full code, DNR CCA and DNR CCA. Patient elects to be full code. Charges/Coding Visit Charges Inpatient E&M: 10889 Subs Hosp L2
[2024-08-03 16:38] LABS: Bedside Glucose 215 mg/dL (74-106)
[2024-08-03] MEDS: Senna/Docusate Sodium 1 Tablet 2 TABLET PO (22:15)
[2024-08-03] MEDS: Ciprofloxacin 500 MG Tablet PO (22:15)
[2024-08-03] MEDS: Insulin Glargine-YFGN 100 UNIT/ML Pen 10 UNIT SC (22:16)
[2024-08-03] MEDS: 0.9% Saline Lock 10 ML Syringe IV (22:18)
[2024-08-03] MEDS: oxyCODONE 5 MG Tablet PO (22:38)
[2024-08-03 22:51] LABS: Bedside Glucose 210 mg/dL (74-106)
[2024-08-04 03:45] VITALS: BP 91/64; PULSE 88; RESP 16; TEMP 36.8; O2SAT 95
[2024-08-04 06:48] LABS: Bedside Glucose 139 mg/dL (74-106)
[2024-08-04 07:37] LABS: Anion Gap 11 (5-15); BUN 39 mg/dL (7-18); BUN/Creat Ratio 18.8 RATIO (10-20); Calcium,Total 8.7 mg/dL (8.5-10.1); Chloride 105 mmol/L (98-107); Creatinine, Serum 2.08 mg/dL (0.55-1.02); EST Glomerular Filtration Rate 25 mL/min (>60); Est Glom Filt Rate - Afr Amer 31 mL/min (>60); Estimated Creatinine Clearance 29.48 ml/min; Glucose 139 mg/dL (74-106); Sodium Level 137 mmol/L (136-145)
[2024-08-04 07:58] VITALS: O2SAT 97
[2024-08-04 08:00] VITALS: PULSE 81; RESP 16; O2SAT 98
[2024-08-04] MEDS: Ipratropium/Albuterol Sulfate 3 ML AMPUL.NEB INHALATION ×2 (08:00→13:44)
--- NOTE | 2024-08-04 09:24 | PN.HOSP_ITS ---
Reason for Visit Reason for Visit: Diagnoses Other staphylococcus as the cause of diseases classified elsewhere (07/29/24) Unspecified atrial fibrillation (07/29/24) Acute kidney failure, unspecified (07/29/24) End stage renal disease (07/29/24) Urinary tract infection, site not specified (07/29/24) Bacteremia (07/29/24) COVID-19 (07/29/24) Dependence on renal dialysis (07/29/24) Subjective Subjective Planes of swelling in her leg with the right being worse than the left. Unclear if her swelling is overall worse and has been previously. Objective Data Objective Data Vital Signs: Vital Signs Temp Pulse Resp BP Pulse Ox O2 Del Method 36.8 C 81 16 91/64 98 Room Air 08/04/24 03:45 08/04/24 08:00 08/04/24 08:00 08/04/24 03:45 08/04/24 08:00 08/04/24 08:22 Oxygen Delivery Method Room Air Weight: 99.3 kg Body Mass Index (BMI) 38.7 Intake & Output: Intake and Output for Last 24 Hours 08/02/24 08/03/24 08/04/24 23:59 23:59 23:59 Intake Total 990 / 990 700 / 700 Output Total 2049 / 2049 3150 / 3150 450 / 450 Balance -1060 / -1060 -2450 / -2450 -450 / -450 Lab / Micro Data 08/03/24 04:55 08/04/24 06:25 Labs: Laboratory Results - last 24 hr 08/03/24 11:10: POC Glucose 222 H 08/03/24 15:35: POC Glucose 215 H 08/03/24 22:14: POC Glucose 210 H 08/04/24 06:25: Sodium 137, Potassium 4.0, Chloride 105, Carbon Dioxide 21.0, Anion Gap 11, BUN 39 H, Creatinine 2.08 H, Estim Creat Clear Calc 29.48, Est GFR (MDRD) Af Amer 31 L, Est GFR (MDRD) Non-Af 25 L, BUN/Creatinine Ratio 18.8, G lucose 139 H, Calcium 8.7 08/04/24 06:29: POC Glucose 139 H Micro: Microbiology 07/29/24 11:50 Blood Culture (Wb) - Anticubital Right Blood Culture - Final No growth in 5 days. 07/29/24 12:51 Urine Catheter - Catheter Urine Culture - Final Enterococcus faecalis 07/29/24 12:00 Mucosa - Nose SARS-CoV-2, Influenza & RSV (PCR) - Final SARS-CoV-2 (COVID 19 PCR) Rhythm Strip Rhythm Strip: A-fib Rate: 157 Ectopy: None Physical Exam Const alert and no apparent distress HEENT head/scalp atraumatic and moist oral mucous membranes Resp normal respiratory effort, no retractions, no use of accessory muscles and clear to auscultation bilaterally Cardio regular rate, regular rhythm, S1 normal heart sound and S2 normal heart sound GI normal to inspection, nondistended, normoactive bowel sounds, soft to palpation, non-tender and non-distended Extremity Extremity Narrative: Nonpitting lower extremity edema. Assessment & Plan Assessment/Plan (1) Acute UTI: (2) Atrial fibrillation with rapid ventricular response: (3) COVID: PLAN: Plan Sepsis * qSOFA of 2 with change in mental status and respiratory rate greater than 22, present on admission. * Secondary to UTI and COVID-19. * Did not receive a bolus of IV fluids given end-stage renal disease status. * Seen by infectious disease to recommend continue with Vanco and cefepime to cover recent E. coli, MRSA, strep and Pseudomonas. patient had a polymicrobial wound infection with Pseudomonas, MRSA. Stop date on August 05 of antibiotics. UTI * Urine culture positive for Enterococcus faecalis. Resistant to tetracycline and intermediate to vancomycin. Sensitive to ampicillin, Cipro, gentamicin, levofloxacin, linezolid, Macrobid. Antibiotics as above COVID-19 * Patient completed a 3-day course of remdesivir * COVID-19 test positive on the third. Chronic condition * ESRD on hemodialysis: Nephrology consulted. On dialysis Wednesdays and Fridays. * Anemia of chronic disease: Patient did receive 1 unit of packed red blood cells. * DVT and right lower extremity hematoma: This was during a recent admission at [facility]. 07/31: Eliquis discontinued because of severe anemia. * type 2 diabetes mellitus: On Lantus 10 units daily. Insulin sliding scale. Accu-Cheks ACHS. DVT prophylaxis: Not indicated is already on apixaban [place] to [facility]
[2024-08-04 09:31] VITALS: BP 95/60; PULSE 85; RESP 18; TEMP 36.4; O2SAT 96
[2024-08-04] MEDS: Menthol/Lanolin/Calamine/Znox 113 GM Tube 1 APPLIC TOPICAL (09:34)
[2024-08-04] MEDS: Senna/Docusate Sodium 1 Tablet 2 TABLET PO (09:36)
[2024-08-04] MEDS: ChlorproMAZINE 25 MG Tablet 50 MG PO (09:36)
[2024-08-04] MEDS: Folic Acid/Vitamin B Comp W-C 1 Capsule 1 CAP PO (09:36)
[2024-08-04] MEDS: Linezolid 600 MG Tablet PO (09:37)
[2024-08-04] MEDS: Ferrous Sulfate 325 MG Tablet PO (11:22)
[2024-08-04] MEDS: Acetaminophen 325 MG Tablet 650 MG PO (11:22)
[2024-08-04] MEDS: oxyCODONE 5 MG Tablet PO (11:22)
[2024-08-04] MEDS: Insulin Lispro 100 UNIT/ML INSULN.PEN SC ×2 (11:24→16:24)
[2024-08-04 11:53] LABS: Bedside Glucose 233 mg/dL (74-106)
[2024-08-04 13:01] LABS: Pathologist Review Reviewed
--- NOTE | 2024-08-04 13:32 | CASEMGMT ---
Discharge Planning [facility] has obtained auth. Aleyda Loja DC Planning Asst.
--- NOTE | 2024-08-04 13:43 | CASEMGMT ---
SW notified physician that patient has been approved to return to [facility]. 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
[2024-08-04 13:44] VITALS: PULSE 80; RESP 16
--- NOTE | 2024-08-04 14:36 | PCM.TXEXTCAR ---
Diet Diet Order/Speech Therapy: 07/29/24 16:43 Diet: Cardiac: Calorie-Controlled Food consistency:: Regular Liquid Consistency:: Regular/Thin How many daily calories?: 1800 calorie Wound(s) right posterior thigh: Wound Type: Abscess Dressing Change: dry dressing Therapies Physical Therapy: Eval and Treat Occupational Therapy: Eval and Treat Problem/Diagnosis (1) Acute UTI: Status: Resolved Code(s): N39.0 - Urinary tract infection, site not specified (2) Atrial fibrillation with rapid ventricular response: Status: Resolved Code(s): I48.91 - Unspecified atrial fibrillation (3) COVID: Status: Acute Code(s): U07.1 - COVID-19 Plan Sepsis qSOFA of 2 with change in mental status and respiratory rate greater than 22, present on admission. Secondary to UTI and COVID-19. Did not receive a bolus of IV fluids given end-stage renal disease status. Seen by infectious disease to recommend continue with Vanco and cefepime to cover recent E. coli, MRSA, strep and Pseudomonas. patient had a polymicrobial wound infection with Pseudomonas, MRSA. Stop date on August 05 of antibiotics. UTI Urine culture positive for Enterococcus faecalis. Resistant to tetracycline and intermediate to vancomycin. Sensitive to ampicillin, Cipro, gentamicin, levofloxacin, linezolid, Macrobid. Antibiotics as above COVID-19 Patient completed a 3-day course of remdesivir COVID-19 test positive on the third. Chronic condition ESRD on hemodialysis: Nephrology consulted. On dialysis Wednesdays and Fridays. Anemia of chronic disease: Patient did receive 1 unit of packed red blood cells. DVT and right lower extremity hematoma: This was during a recent admission at [facility]. 07/31: Eliquis discontinued because of severe anemia. type 2 diabetes mellitus: On Lantus 10 units daily. Insulin sliding scale. Accu-Cheks ACHS. DVT prophylaxis: Not indicated is already on apixaban CT to [facility] Allergies/Procedures Done in Hospital Allergies propoxyphene (From Darvon) Allergy (Mild, Verified 07/29/24 11:38) PT UNABLE TO RESPOND-NEEDS F/U haloperidol (From Haldol) Allergy (Verified 07/29/24 11:38) PT UNABLE TO RESPOND-NEEDS F/U Penicillins Allergy (Verified 07/29/24 11:38) PT UNABLE TO RESPOND-NEEDS F/U Type of Care/Length of Stay Estimated LOS: Convalescent Care Less Than 30 days Type of Care Needed: Skilled Rehab Potential: Fair Prognosis: Good Additional Orders/Day of Discharge Day of Discharge: 08/04/24 Dietary and Speech Recommendations Dietitian Recommendations/Changes: Adjust to liberal consistent carb diet with no added salt and 1800 calorie control d/t pt reporting poor appetite. Will order 120ml glucerna TID with meals. Will obtain nutrition information at follow-up. Will monitor weight, as available. Discharge Plan Admission Admit Date/Time: 07/29/24 15:19 Primary Reason for Your Visit: UTI Attending Provider: Michele Claros Primary Care Provider: Mari Atwood NP Consulting Providers: Yarely Graham; Medina Hebert; Feliciano Borjas; Josue Lambert Instructions Additional Instructions / Restrictions: Quarantine through the for COVID-19. Patient will need to follow-up with her surgeon at [facility] who placed her tunneled dialysis catheter. She will need to follow-up to have that tunneled dialysis catheter removed as she is no longer requiring dialysis. Discharge Orders/Prescriptions Prescriptions: New ciprofloxacin HCl 500 mg Tablet 500 mg PO QPM Qty: 2 0RF diltiazem HCl 240 mg Capsule,Extended Release 24hr 240 mg PO DAILY Qty: 0 0RF linezolid 600 mg Tablet 600 mg PO BID Qty: 3 0RF metoprolol succinate 50 mg Tablet Extended Release 24 Hr 50 mg PO Q12 Qty: 0 0RF oxycodone 5 mg Tablet 5 mg PO Q4H PRN PRN (Reason: Pain Score 4-10) 3 Days Qty: 12 0RF furosemide 40 mg Tablet 40 mg PO DAILY Qty: 0 0RF Continued acetaminophen 325 mg tablet 325 mg PO Q4H PRN (Reason: fever or pain) apixaban 5 mg tablet 5 mg PO BID chlorpromazine 50 mg tablet 50 mg PO BID hydrocortisone [Ala-Marlo] 1 % cream 1 applic topical DAILY Clover-Boaz Rx 1-60-300 mg-mg-mcg tablet 1 tab PO DAILY insulin glargine-yfgn 100 unit/mL (3 mL) Insulin Pen 10 unit subcut QPM Qty: 0 0RF sennosides-docusate sodium [Stimulant Laxative Plus] 8.6-50 mg Tablet 2 tab PO BID PRN (Reason: Constipation) ferrous sulfate [FeroSul] 325 mg (65 mg iron) Tablet 325 mg PO DAILY insulin lispro [Humalog KwikPen Insulin] 100 unit/mL Insulin Pen 1 sliding scale dose subcut [facility] Protocol: 3. Sliding Scale Insulin Med Dosing Condition: 150-189 mg/dl = 1 unit Condition: 190-229 mg/dl = 2 units Condition: 230-269 mg/dl = 3 units Condition: 270-309 mg/dl = 4 units Condition: 310-349 mg/dl = 5 units Condition: 350-399 mg/dl = 6 units Condition: 400-449 mg/dl = 7 units Condition: Greater than 449 call physician Protocol Text: Suggested for: - Patients on Total Daily Insulin Dose of 37-55 units - Obese, infected, or steroid patients MEDIUM DOSING ALGORITHIM Discontinued furosemide 40 mg tablet 40 mg PO .COMPLEX Rx Instructions: 40 mg orally TWO TIMES A DAY EVERY SUNDAY, SUNDAY, SUNDAY, SUNDAY; metoprolol tartrate 100 mg tablet 100 mg PO QHS thioridazine 50 mg tablet 50 mg PO BID ertapenem 1 gram recon soln 0.5 g IV MOWEFR Rx Instructions: after hemodialysis x3. Referrals / Follow Up: Mari Atwood NP, RENTAL COUNTER CLERK-C [Primary Care Provider] - Within 2 Weeks Disposition Disposition (needs filled in before D/C Order can be placed): Longterm Facility
--- NOTE | 2024-08-04 14:50 | PCM.DC.SUM ---
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 Comment: Reason for Consult:: right posterior thigh wound 07/29/24 19:11 Consult: Infectious Disease Routine Consulting Provider: Feliciano Borjas Reason for Consult: sepsis due to UTI EMERGENT Consult: No MD Notified: Yes Date Notified: 07/29/24 Time Notified: 07:05 Method of Notification: Answering Service Reason For Visit: SEPSIS, UTI Diagnosis Discharge Diagnosis (1) Acute UTI: Status: Resolved Code(s): N39.0 - Urinary tract infection, site not specified (2) Atrial fibrillation with rapid ventricular response: Status: Resolved Code(s): I48.91 - Unspecified atrial fibrillation (3) COVID: Status: Acute Code(s): U07.1 - COVID-19 Plan Sepsis qSOFA of 2 with change in mental status and respiratory rate greater than 22, present on admission. Secondary to UTI and COVID-19. Did not receive a bolus of IV fluids given end-stage renal disease status. Seen by infectious disease to recommend continue with Vanco and cefepime to cover recent E. coli, MRSA, strep and Pseudomonas. patient had a polymicrobial wound infection with Pseudomonas, MRSA. Stop date on August 05 of antibiotics. UTI Urine culture positive for Enterococcus faecalis. Resistant to tetracycline and intermediate to vancomycin. Sensitive to ampicillin, Cipro, gentamicin, levofloxacin, linezolid, Macrobid. Antibiotics as above COVID-19 Patient completed a 3-day course of remdesivir COVID-19 test positive on the third. Chronic condition ESRD on hemodialysis: Nephrology consulted. No longer requiring hemodialysis. Nephrology feels that her dialysis catheter can be removed. Patient will need to follow-up with the surgeon who placed the tunneled dialysis catheter and have that removed. Anemia of chronic disease: Patient did receive 1 unit of packed red blood cells. DVT and right lower extremity hematoma: This was during a recent admission at [facility]. 07/31: Eliquis discontinued because of severe anemia. type 2 diabetes mellitus: On Lantus 10 units daily. Insulin sliding scale. Accu-Cheks ACHS. DVT prophylaxis: Not indicated is already on apixaban [place] to [facility] at Discharge Home Medications acetaminophen 325 mg tablet 325 mg PO Q4H PRN fever or pain 07/21/24 apixaban 5 mg tablet 5 mg PO BID 07/21/24 chlorpromazine 50 mg tablet 50 mg PO BID 07/21/24 hydrocortisone 1 % topical cream (Ala-Marlo) 1 applic topical DAILY HEMORROIDS 07/21/24 vitamin B comp no.3-folic acid 1 mg-vit C 60 mg-biotin 300 mcg tablet (Clover-Boaz Rx) 1 tab PO DAILY 07/21/24 insulin glargine-yfgn 100 unit/mL (3 mL) subcutaneous pen 10 unit (0.1 mL) subcut QPM #0 mL 07/24/24 ferrous sulfate 325 mg (65 mg iron) tablet (FeroSul) 325 mg PO DAILY 07/29/24 insulin lispro 100 unit/mL subcutaneous pen (Humalog KwikPen (U-100) Insulin) 1 sliding scale dose subcut ACHS 07/29/24 sennosides 8.6 mg-docusate sodium 50 mg tablet (Stimulant Laxative Plus) 2 tab PO BID PRN Constipation 07/29/24 ciprofloxacin HCl 500 mg tablet 500 mg PO QPM #2 tabs 08/04/24 diltiazem HCl 240 mg capsule,extended release 24 hr 240 mg PO DAILY #0 caps 08/04/24 furosemide 40 mg tablet 40 mg PO DAILY #0 tabs 08/04/24 linezolid 600 mg tablet 600 mg PO BID #3 tabs 08/04/24 metoprolol succinate 50 mg tablet,extended release 24 hr 50 mg PO Q12 #0 tabs 08/04/24 oxycodone 5 mg tablet 5 mg PO Q4H PRN PRN Pain Score 4-10 3 days #12 tabs 08/04/24 Hospital Course Summary of Care Provided Minutes Spent on Discharge: 40 Weight / BMI Weight Weight: 99.3 kg Body Mass Index (BMI) 38.7 ABG / Lab / Microbiology Data 08/03/24 04:55 08/04/24 06:25 Laboratory: Laboratory Results - last 24 hr 08/02/24 04:25: Diff Path Review Reviewed 08/03/24 15:35: POC Glucose 215 H 08/03/24 22:14: POC Glucose 210 H 08/04/24 06:25: Sodium 137, Potassium 4.0, Chloride 105, Carbon Dioxide 21.0, Anion Gap 11, BUN 39 H, Creatinine 2.08 H, Estim Creat Clear Calc 29.48, Est GFR (MDRD) Af Amer 31 L, Est GFR (MDRD) Non-Af 25 L, BUN/Creatinine Ratio 18.8, Glucose 139 H, Calcium 8.7 08/04/24 06:29: POC Glucose 139 H 08/04/24 11:16: POC Glucose 233 H Microbiology: Microbiology 07/29/24 11:50 Blood Culture (Wb) - Anticubital Right Blood Culture - Final No growth in 5 days. 07/29/24 12:51 Urine Catheter - Catheter Urine Culture - Final Enterococcus faecalis 07/29/24 12:00 Mucosa - Nose SARS-CoV-2, Influenza & RSV (PCR) - Final SARS-CoV-2 (COVID 19 PCR) D/C Instructions Discharge Diet: 2000 Calorie Control Diet Meaningful Use Info Meaningful Use Meaningful Use Diagnoses (Choose all that apply): None applicable Ischemic Stroke Statin Dosing Therapy Reference: STATIN DOSE THERAPY REFERENCE: * Patients > 75 years receive moderate or high dose statin therapy. * Patients 75 years or YOUNGER should receive HIGH intensity statin dose unless contraindicated. You will be required to document reason for non-treatment if statin daily dose does not meet guidelines. HIGH DOSE STATIN THERAPY DAILY Atorvastatin > than or = to 40 mg Rosuvastatin > than or = to 20 mg Amlodipine + Atorvastatin > than or = to 2.5/40 mg Ezetimibe + Simvastatin 10/80 mg Simvastatin 80mg Discharge Plan Admission Admit Date/Time: 07/29/24 15:19 Primary Reason for Your Visit: UTI Attending Provider: Michele Claros Primary Care Provider: Mari Atwood NP Consulting Providers: Yarely Graham; Medina Hebert; Feliciano Borjas; Josue Lambert Instructions Additional Instructions / Restrictions: Quarantine through the for COVID-19. Patient will need to follow-up with her surgeon at [facility] [place] who placed her tunneled dialysis catheter. She will need to follow-up to have that tunneled dialysis catheter removed as she is no longer requiring dialysis. Discharge Orders/Prescriptions Prescriptions: New ciprofloxacin HCl 500 mg Tablet 500 mg PO QPM Qty: 2 0RF diltiazem HCl 240 mg Capsule,Extended Release 24hr 240 mg PO DAILY Qty: 0 0RF linezolid 600 mg Tablet 600 mg PO BID Qty: 3 0RF metoprolol succinate 50 mg Tablet Extended Release 24 Hr 50 mg PO Q12 Qty: 0 0RF oxycodone 5 mg Tablet 5 mg PO Q4H PRN PRN (Reason: Pain Score 4-10) 3 Days Qty: 12 0RF furosemide 40 mg Tablet 40 mg PO DAILY Qty: 0 0RF Continued acetaminophen 325 mg tablet 325 mg PO Q4H PRN (Reason: fever or pain) apixaban 5 mg tablet 5 mg PO BID chlorpromazine 50 mg tablet 50 mg PO BID hydrocortisone [Ala-Marlo] 1 % cream 1 applic topical DAILY Clover-Boaz Rx 1-60-300 mg-mg-mcg tablet 1 tab PO DAILY insulin glargine-yfgn 100 unit/mL (3 mL) Insulin Pen 10 unit subcut QPM Qty: 0 0RF sennosides-docusate sodium [Stimulant Laxative Plus] 8.6-50 mg Tablet 2 tab PO BID PRN (Reason: Constipation) ferrous sulfate [FeroSul] 325 mg (65 mg iron) Tablet 325 mg PO DAILY insulin lispro [Humalog KwikPen Insulin] 100 unit/mL Insulin Pen 1 sliding scale dose subcut [facility] Protocol: 3. Sliding Scale Insulin Med Dosing Condition: 150-189 mg/dl = 1 unit Condition: 190-229 mg/dl = 2 units Condition: 230-269 mg/dl = 3 units Condition: 270-309 mg/dl = 4 units Condition: 310-349 mg/dl = 5 units Condition: 350-399 mg/dl = 6 units Condition: 400-449 mg/dl = 7 units Condition: Greater than 449 call physician Protocol Text: Suggested for: - Patients on Total Daily Insulin Dose of 37-55 units - Obese, infected, or steroid patients MEDIUM DOSING ALGORITHIM Discontinued furosemide 40 mg tablet 40 mg PO .COMPLEX Rx Instructions: 40 mg orally TWO TIMES A DAY EVERY SUNDAY, SUNDAY, SUNDAY, SUNDAY; metoprolol tartrate 100 mg tablet 100 mg PO QHS thioridazine 50 mg tablet 50 mg PO BID ertapenem 1 gram recon soln 0.5 g IV MOWEFR Rx Instructions: after hemodialysis x3. Referrals / Follow Up: Mari Atwood NP, [facility] [Primary Care Provider] - Within 2 Weeks Disposition Disposition (needs filled in before D/C Order can be placed): Shelter Facility Charges/Coding Visit Charges Inpatient E&M: 67076 Disch Hosp >30min
--- NOTE | 2024-08-04 14:53 | CASEMGMT ---
Physician is going to discharge patient back to [facility] today. BUD saw patient's in the hallway so SW updated him. 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
--- NOTE | 2024-08-04 15:10 | CASEMGMT ---
Discharge Planning Discharge orders, signed med list, and transport time sent to [facility] via [facility]. Physicians (Debbie) will transport patient by cot at 5p. Nursing, SW, patient, and her updated. Aleyda Loja DC Planning Asst.
--- NOTE | 2024-08-04 15:19 | PHA.DC.MR.R ---
Pharmacy [place] Med Reconciliation Pharmacy Service has performed discharge medication reconciliation for this patient. The patient's discharge medication list was reviewed for discrepancies and discrepancies were resolved. Medications at Discharge Home Medications acetaminophen 325 mg tablet 325 mg PO Q4H PRN fever or pain 07/21/24 apixaban 5 mg tablet 5 mg PO BID 07/21/24 chlorpromazine 50 mg tablet 50 mg PO BID 07/21/24 hydrocortisone 1 % topical cream (Ala-Marlo) 1 applic topical DAILY HEMORROIDS 07/21/24 vitamin B comp no.3-folic acid 1 mg-vit C 60 mg-biotin 300 mcg tablet (Clover-Boaz Rx) 1 tab PO DAILY 07/21/24 insulin glargine-yfgn 100 unit/mL (3 mL) subcutaneous pen 10 unit (0.1 mL) subcut QPM #0 mL 07/24/24 ferrous sulfate 325 mg (65 mg iron) tablet (FeroSul) 325 mg PO DAILY 07/29/24 insulin lispro 100 unit/mL subcutaneous pen (Humalog KwikPen (U-100) Insulin) 1 sliding scale dose subcut ACHS 07/29/24 sennosides 8.6 mg-docusate sodium 50 mg tablet (Stimulant Laxative Plus) 2 tab PO BID PRN Constipation 07/29/24 ciprofloxacin HCl 500 mg tablet 500 mg PO QPM #2 tabs 08/04/24 diltiazem HCl 240 mg capsule,extended release 24 hr 240 mg PO DAILY #0 caps 08/04/24 furosemide 40 mg tablet 40 mg PO DAILY #0 tabs 08/04/24 linezolid 600 mg tablet 600 mg PO BID #3 tabs 08/04/24 metoprolol succinate 50 mg tablet,extended release 24 hr 50 mg PO Q12 #0 tabs 08/04/24 oxycodone 5 mg tablet 5 mg PO Q4H PRN PRN Pain Score 4-10 3 days #12 tabs 08/04/24
[2024-08-04 15:30] VITALS: BP 118/64; PULSE 99; RESP 18; TEMP 36.9; O2SAT 95
--- NOTE | 2024-08-04 15:42 | NURSING ---
Called report to nurse Cardoza At [facility]
[2024-08-04 16:44] LABS: Bedside Glucose 260 mg/dL (74-106)
== END 2024-08-04 17:15 | disposition skilled nursing facility (03) | DRG 871 ==
LOC: ED 14:28 → PCU 16:08
PROVIDERS: Internal Medicine; Admitting Provider Student in an Organized Health Care Education/Training Program; Emergency Provider Emergency Medicine; PCP Nurse Practitioner Family
DX: A41.9 Sepsis, unspecified organism (principal); U07.1 COVID-19; N18.6 End stage renal disease; L97.111 Non-pressure chronic ulcer of right thigh limited to breakdown of skin; E87.1 Hypo-osmolality and hyponatremia; N39.0 Urinary tract infection, site not specified; D63.1 Anemia in chronic kidney disease; E11.22 Type 2 diabetes mellitus with diabetic chronic kidney disease; I48.91 Unspecified atrial fibrillation; E11.622 Type 2 diabetes mellitus with other skin ulcer; Z79.4 Long term (current) use of insulin; Z99.2 Dependence on renal dialysis; B95.2 Enterococcus as the cause of diseases classified elsewhere; B96.20 Unspecified Escherichia coli [E. coli] as the cause of diseases classified elsewhere; B95.62 Methicillin resistant Staphylococcus aureus infection as the cause of diseases classified elsewhere; B96.5 Pseudomonas (aeruginosa) (mallei) (pseudomallei) as the cause of diseases classified elsewhere; Z79.899 Other long term (current) drug therapy; Z86.718 Personal history of other venous thrombosis and embolism
CPT/HCPCS: 36415; 36600; 71045; 80048; 80053; 80202; 81001; 82803; 82962; 83010; 83605; 83615; 85025; 85045; 85610; 85730; 86644; 86850; 86880; 86900; 86901; 86920; 86922; 87040; 87077; 87086; 87088; 87186; 87631; 93005; 94640; 94762; 97110; 97162; 97166; 97530; 97535; 99285; J7040; J7050; P9016; A4216; J0248; J3490

== ENCOUNTER 2024-09-25 12:17 | Outpatient (RCR) | payer MEDICARE, SELFPAY ==
[2024-09-25 13:11] LABS: Hemoglobin 8.5 g/dL (12.0-15.0); Mean Corp Hgb Conc 31.5 g/dL (32-36); Mean Corpuscular Hgb 29.6 pg (27.0-32.0); Mean Corpuscular Volume 94.1 fL (81-99); Mean Platelet Vol. 11.8 fl (6.2-12.0); Platelet Count 205 K/mm3 (150-450); RBC Distribution Width CV 18.2 % (11.6-14.6); Red Blood Count 2.87 M/mm3 (4.2-5.4); White Blood Count 10.4 K/mm3 (4.4-11.0)
[2024-09-25 13:19] LABS: ALB/GLOB Ratio 0.9 RATIO (0.9-2.4); AST(SGOT) 12 U/L (15-37); Alanine Aminotransfer ALT/SGPT 19 U/L (13-56); Albumin, Serum 3.3 g/dL (3.2-5.0); Alkaline Phosphatase 80 U/L (45-117); Anion Gap 8 (5-15); BUN 47 mg/dL (7-18); BUN/Creat Ratio 21.2 RATIO (10-20); Calcium,Total 9.2 mg/dL (8.5-10.1); Chloride 105 mmol/L (98-107); Creatinine, Serum 2.22 mg/dL (0.55-1.02); EST Glomerular Filtration Rate 23 mL/min (>60); Est Glom Filt Rate - Afr Amer 28 mL/min (>60); Globulin 3.5 g/dL (2.2-4.2); Glucose 219 mg/dL (74-106); Potassium 3.5 mmol/L (3.5-5.1); Protein, Total 6.8 g/dL (6.4-8.2); Sodium Level 137 mmol/L (136-145)
[2024-09-25 13:34] LABS: Hemoglobin A1c 6.7 % (3.8-5.6)
[2024-09-25 13:46] LABS: BNP,B-Type NATRIURETIC PEPTIDE 125.9 pg/mL (0-100)
== END 2024-09-25 18:00 | disposition home or self-care (01) ==
LOC: HHLAB 12:17
PROVIDERS: PCP Nurse Practitioner Family
DX: N17.9 Acute kidney failure, unspecified (principal); E11.69 Type 2 diabetes mellitus with other specified complication; R60.9 Edema, unspecified; I10 Essential (primary) hypertension
CPT/HCPCS: 80053; 83036; 83880; 85027